=== PATIENT | male | born 1960 | race Caucasian/White ===

== ENCOUNTER → 2019-11-30 11:02 | Outpatient (BNVA) | payer MEDICARE, SELFPAY | PROVIDERS: Visit Provider Family Medicine Adult Medicine | DX: M96.1 Postlaminectomy syndrome, not elsewhere classified (principal); M24.9 Joint derangement, unspecified; M47.816 Spondylosis without myelopathy or radiculopathy, lumbar region; S22.32XD Fracture of one rib, left side, subsequent encounter for fracture with routine healing; Z79.891 Long term (current) use of opiate analgesic | CPT/HCPCS: 99214 ==

== ENCOUNTER → 2020-01-03 14:50 | Outpatient (BNVA) | payer MEDICARE, SELFPAY | PROVIDERS: PCP Internal Medicine; Referring Provider Internal Medicine; Visit Provider Family Medicine Adult Medicine | DX: M96.1 Postlaminectomy syndrome, not elsewhere classified (principal); M47.816 Spondylosis without myelopathy or radiculopathy, lumbar region; Z79.891 Long term (current) use of opiate analgesic | CPT/HCPCS: 99212; Q3014 ==

== ENCOUNTER 2020-01-11 12:43 | Inpatient (IN) | payer MEDICARE, SELFPAY ==
[2020-01-11] VITALS (7 sets, daily range): BP systolic 77–147; BP diastolic 50–100; PULSE 79–86; RESP 15–22; TEMP 36.1–36.9; O2SAT 96–100; BMI 27.3
--- NOTE | 2020-01-11 13:02 | XR_ITS ---
EXAMINATION: XR CHEST CLINICAL INFORMATION: CHF COMPARISON: Chest radiographs 03/06/2019, 02/19/2019 TECHNIQUE: Portable upright AP view of the chest was obtained. FINDINGS: There is enlarged cardiopericardial silhouette similar to prior exams. The vascularity is normal. There is no edema, airspace consolidation, or effusion. The hilar and mediastinal contours and bony structures are stable. XR/XR chest 1V IMPRESSION: Enlarged cardiopericardial silhouette similar to prior studies. No vascular congestion, infiltrate, or effusion.
--- NOTE | 2020-01-11 13:02 | ECG_ITS ---
Test Reason : SOB Blood Pressure : / mmHG Vent. Rate : 077 BPM Atrial Rate : 156 BPM P-R Int : 000 ms QRS Dur : 112 ms QT Int : 400 ms P-R-T Axes : 000 -29 126 degrees QTc Int : 452 ms Atrial fibrillation Left axis deviation Intra-ventricular conduction delay Anterolateral infarct , age undetermined Abnormal ECG When compared with ECG of 17-MAR-2019 12:16, Atrial fibrillation has replaced Sinus rhythm Nonspecific T wave abnormality no longer evident in Inferior leads QT has shortened Referred By: Jorgito Crooks Electronically Signed By:CAREN OWEN MD
--- NOTE | 2020-01-11 13:04 | ED.SOB ---
HPI - SOB/Dyspnea General Chief Complaint: Dyspnea Stated Complaint: Difficulty Breathing Time Seen by Provider: 01/11/20 13:02 Source: patient Mode of arrival: ambulatory Limitations: no limitations History of Present Illness HPI Narrative: patient has history of AFib CHF on Lasix 120 mg daily and Eliquis for last few weeks noticed increased shortness of breath special on exertion and lying flat also noticed increased leg swelling patient has not seen any MD for last 9 months. On arrival patient's blood pressure was 77/50 patient denied any dizziness or near syncope was feeling better repeat blood pressure was 130/87 after 500 cc of normal saline MD elicited complaint: shortness of breath Pertinent past history: congestive heart failure Onset (ago): week(s) Timing: constant Severity: moderate Exacerbating factors: lying flat and exertion Known history of: congestive heart failure Related Data Home Medications Medication Instructions Recorded Confirmed alprazolam 1 mg tablet 1 mg PO DAILY 11/30/19 01/11/20 carvedilol 3.125 mg tablet 3.125 mg PO BID 11/30/19 01/11/20 naloxone 4 mg/actuation nasal spray 1 spray INTRANASAL DAILY@0630 PRN 11/30/19 01/11/20 sacubitril 24 mg-valsartan 26 mg 1 tab PO BID 11/30/19 01/11/20 tablet apixaban 5 mg tablet 5 mg PO BID 01/02/20 01/11/20 Previous Rx's Medication Instructions Recorded gabapentin 800 mg tablet 1,600 mg PO BID #270 tab 12/19/19 buprenorphine HCl 450 mcg buccal 450 mcg BUCCAL Q12H 14 Days #28 ea 01/03/20 film methadone 5 mg tablet 5 mg PO Q8H 30 Days #90 tab 01/03/20 oxycodone 30 mg tablet 30 mg PO Q4H PRN 30 Days #150 tab 01/03/20 Allergies Allergy/AdvReac Type Severity Reaction Status Date / Time zolpidem [Ambien] Allergy Unknown sleep Verified 01/07/20 17:26 walking Review of Systems Review of Systems: REVIEW OF SYSTEMS: Pertinent positives and negatives are stated above in the history. GEN: no fevers, chills, fatigue HEENT: no nasal congestion, sore throat, ear pain NEURO: no headache, dizziness, focal weakness PULM: no cough, CV: no chest pain, palpitations, leg edema + ABD: no abdominal pain, nausea, vomiting, diarrhea : no dysuria, urgency, frequency SKIN: no rash ROS otherwise negative x 10 PMFSH Past Medical History Medical History CHF (congestive heart failure) Derangement of left shoulder joint Derangement of right shoulder joint Failed back syndrome, cervical Failed back syndrome, lumbar Left rib fracture Lumbar spondylosis Lumbar spondylosis Surgical History H/O elbow surgery H/O knee surgery History of arteriography History of shoulder surgery History of spinal surgery Family History Family History Father No problems noted. Mother No problems noted. Daughter Breast cancer Social History Social History Alcohol intake: never Smoking Status: Former smoker Tobacco Type: Cigarette Cigarettes Per Day: 10 Smoked in Last 30 Days: Yes Use of substances other than those prescribed or required for medical reasons: No Advance Directives: No Advance Directives Information Provided: No Physical Exam Vital Signs: Vital Signs: Last Vital Signs Temp 98.4 F 01/11/20 12:53 Pulse 83 01/11/20 14:15 Resp 22 H 01/11/20 13:14 BP 130/87 01/11/20 14:15 Pulse Ox 96 01/11/20 14:15 Body Mass Index 27.3 Const: General: cooperative Nutritional Appearance: average body habitus and well nourished Orientation/consciousness: oriented to person, oriented to place and oriented to time Limitations: no limitations HENMT: Head: Yes normal to inspection Ears: hearing grossly normal bilaterally Mouth: Normal oral and palatal mucosa present Eyes: General: appearance normal, both eyes and all related structures Resp: Effort & Inspection: normal respiratory effort Auscultation: crackles, rales, no rhonchi, no wheezes and diminished lung sounds Cardio: Rhythm: abnormal rhythm irregularly irregular Heart sounds: S1 normal heart sound present and S2 normal heart sound present Peripheral pulses: Peripheral pulses 2+ throughout GI: Inspection: Yes normal to inspection Palpation (GI): Soft to palpation, nontender and no guarding Neuro: General: oriented to person, oriented to place and oriented to time Motor exam (neuro): 5/5 motor strength present throughout Extrem: General: Yes full ROM and Yes pedal edema (3+ b/l) Course Course Course Narrative: patient with chronic CHF , bedside echo was done by myself showed about 20% of ejection fraction. Patient already taking 120 mg of Lasix by mouth will admit him and give IV Bumex admit for IV diuresis MDM - SOB/Dyspnea Differential Diagnosis Differential diagnosis: Likely acute exacerbation of chronic obstructive airways disease, congestive heart failure, pneumonia and pleural effusion Medical Records Attestation: I reviewed the patient's medical records. Lab Data Attestation: I reviewed the patient's lab results. Result diagrams: 01/11/20 13:11 01/11/20 13:11 Labs: Lab Results 01/11/20 01/11/20 01/11/20 Range/Units 13:11 13:11 13:11 WBC 9.5 (4.8-10.8) X10*3/uL RBC 5.09 (4.60-5.80) X10*6/uL Hgb 14.4 (14.0-18.0) g/dl Hct 45.3 (42-52) % MCV 89.0 (80-98) fL MCH 28.3 (27.0-33.0) pg MCHC 31.8 (31.0-36.0) g/dl RDW 14.9 (11.0-16.0) % Plt Count 210 (160-400) X10*3/uL MPV 10.9 (9.4-12.4) fL Immature Gran % (Auto) 0.3 (0.0-0.4) % Neut % (Auto) 66.7 (45-73) % Lymph % (Auto) 21.0 (20-40) % [place] % (Auto) 10.5 (2-11) % Eos % (Auto) 1.1 (0-4) % Baso % (Auto) 0.4 (0-2) % Lymph # (Auto) 2.0 (1.2-4.9) X10*3/uL [place] # (Auto) 1.0 (0.1-1.2) X10*3/uL Eos # (Auto) 0.1 (0.0-0.4) X10*3/uL Baso # (Auto) 0.0 (0.0-0.2) X10*3/uL Abs Immat Gran (auto) 0.03 (0.00-0.03) X10*3/uL Absolute Neuts (auto) 6.3 (2.0-8.3) X10*3/uL Absolute Nucleated RBC 0.000 (0.0-0.012) X10*3/uL Nucleated RBC % (auto) 0.0 (0.0-0.2) /100WBC PT (10.8-13.0) SEC INR (0.9-1.1) APTT (24.1-38.0) SEC Sodium 132 L (135-145) mmol/L Potassium 4.8 (3.3-5.1) mmol/l Chloride 96 (96-108) mmol/L Carbon Dioxide 27 (22-29) mmol/L Anion Gap 14 (12-20) BUN 45 H (9-16) mg/dL Creatinine 2.93 H (0.5-1.4) mg/dL Estim Creat Clear Calc 33.7 Estimated GFR 22 Random Glucose 96 (60-115) mg/dL Calcium 8.2 L (8.4-10.2) mg/dL Total Bilirubin (0.0-1.0) mg/dL Direct Bilirubin (0.0-0.5) mg/dL AST (5-37) U/L ALT (0-40) U/L Alkaline Phosphatase (39-117) U/L Troponin I High Sens 66.9 H (<3.5-35.0) ng/L B-Natriuretic Peptide 2694 H (<100) pg/mL Total Protein (6.5-8.0) g/dL Albumin (3.5-5.0) g/dL 01/11/20 01/11/20 Range/Units 13:11 13:11 WBC (4.8-10.8) X10*3/uL RBC (4.60-5.80) X10*6/uL Hgb (14.0-18.0) g/dl Hct (42-52) % MCV (80-98) fL MCH (27.0-33.0) pg MCHC (31.0-36.0) g/dl RDW (11.0-16.0) % Plt Count (160-400) X10*3/uL MPV (9.4-12.4) fL Immature Gran % (Auto) (0.0-0.4) % Neut % (Auto) (45-73) % Lymph % (Auto) (20-40) % [place] % (Auto) (2-11) % Eos % (Auto) (0-4) % Baso % (Auto) (0-2) % Lymph # (Auto) (1.2-4.9) X10*3/uL [place] # (Auto) (0.1-1.2) X10*3/uL Eos # (Auto) (0.0-0.4) X10*3/uL Baso # (Auto) (0.0-0.2) X10*3/uL Abs Immat Gran (auto) (0.00-0.03) X10*3/uL Absolute Neuts (auto) (2.0-8.3) X10*3/uL Absolute Nucleated RBC (0.0-0.012) X10*3/uL Nucleated RBC % (auto) (0.0-0.2) /100WBC PT 23.8 H (10.8-13.0) SEC INR 2.0 H (0.9-1.1) APTT 39.7 H (24.1-38.0) SEC Sodium (135-145) mmol/L Potassium (3.3-5.1) mmol/l Chloride (96-108) mmol/L Carbon Dioxide (22-29) mmol/L Anion Gap (12-20) BUN (9-16) mg/dL Creatinine (0.5-1.4) mg/dL Estim Creat Clear Calc Estimated GFR Random Glucose (60-115) mg/dL Calcium (8.4-10.2) mg/dL Total Bilirubin 1.1 H (0.0-1.0) mg/dL Direct Bilirubin 0.6 H (0.0-0.5) mg/dL AST 20 (5-37) U/L ALT 29 (0-40) U/L Alkaline Phosphatase 86 (39-117) U/L Troponin I High Sens (<3.5-35.0) ng/L B-Natriuretic Peptide (<100) pg/mL Total Protein 6.0 L (6.5-8.0) g/dL Albumin 3.5 (3.5-5.0) g/dL ECG Data Attestation: I personally reviewed and interpreted this ECG as follows: ECG interpretation date: 01/11/20 Prior ECG tracings: available for review Interpretation: atrial fibrillation with ventricular rate of 77, poor progression of R-waves in anterior leads nonspecific ST T wave changes. Impression atrial fibrillation no acute ischemia Discharge Plan Discharge Clinical Impression: CHF exacerbation Qualifiers: Heart failure type: systolic Qualified Code(s): I50.23 - Acute on chronic systolic (congestive) heart failure Patient Disposition: Admitted As Inpatient
[2020-01-11] MEDS: 0.9 % Sodium Chloride 500 ML IV (13:08)
[2020-01-11 13:17] LABS: MANUAL DIFF FLAG NO
[2020-01-11 13:26] LABS: Basophils Percent Auto 0.4 % (0-2); Eosinophils Absolute Auto 0.1 X10*3/uL (0.0-0.4); Eosinophils Percent Auto 1.1 % (0-4); Hematocrit 45.3 % (42-52); Hemoglobin 14.4 g/dl (14.0-18.0); Imm Gran Abs Auto 0.03 X10*3/uL (0.00-0.03); Imm Gran Pct Auto 0.3 % (0.0-0.4); Mean Corpuscular HGB Conc 31.8 g/dl (31.0-36.0); Mean Corpuscular Hemoglobin 28.3 pg (27.0-33.0); Mean Platelet Volume 10.9 fL (9.4-12.4); Monocytes Percent Auto 10.5 % (2-11); Neutrophils Absolute Auto 6.3 X10*3/uL (2.0-8.3); Neutrophils Percent Auto 66.7 % (45-73); Platelet Count 210 X10*3/uL (160-400); Red Blood Count 5.09 X10*6/uL (4.60-5.80); Red Cell Distribution Width 14.9 % (11.0-16.0); White Blood Count 9.5 X10*3/uL (4.8-10.8)
[2020-01-11 13:28] LABS: Prothrombin Time 23.8 SEC (10.8-13.0)
[2020-01-11 13:31] LABS: Partial Thromboplastin Time 39.7 SEC (24.1-38.0)
[2020-01-11 13:47] LABS: Anion Gap 14 (12-20); Blood Urea Nitrogen 45 mg/dL (9-16); Calcium 8.2 mg/dL (8.4-10.2); Carbon Dioxide 27 mmol/L (22-29); Chloride 96 mmol/L (96-108); Creatinine Clr Calc Pharmacy 33.7; Estimated Glomerular Filt Rate 22; Glucose Random 96 mg/dL (60-115); Potassium 4.8 mmol/l (3.3-5.1); Sodium 132 mmol/L (135-145)
[2020-01-11 13:51] LABS: Alanine Aminotransferase 29 U/L (0-40); Albumin Level 3.5 g/dL (3.5-5.0); Alkaline Phosphatase 86 U/L (39-117); Aspartate Amino Transferase 20 U/L (5-37); Bilirubin Direct 0.6 mg/dL (0.0-0.5); Bilirubin Total 1.1 mg/dL (0.0-1.0)
[2020-01-11 14:00] LABS: B Type Natriuretic Peptide 2694 pg/mL (<100); Troponin-I High Sensitivity 66.9 ng/L (<3.5-35.0)
[2020-01-11] MEDS: Bumetanide 1 MG/4 ML VIAL IVPUSH (16:00)
--- NOTE | 2020-01-11 16:03 | PC.NURSE ---
hospitalist at bedside eval.
[2020-01-11 16:30] LABS: COVID-19 Test Negative (Negative); IDNOW Serial# 9DD0AD1C
--- NOTE | 2020-01-11 17:00 | P.HPHOSP_ITS ---
History of Present Illness Date of Service: 01/11/20 Chief Complaint: progressive JUSTICE This is a 59-year-old poorly compliant gentleman with a known history of cardiomyopathy (? tachycardia induced), with a last known ejection fraction of about 15% on his last transesophageal echo (02/2019) who presents to the hospital with complaints of progressive dyspnea on exertion for the last 2 weeks. Patient reports that he last saw change management specialist in April 2019 and he does admit to not taking his Lasix unless he was starts swelling up. he does endorse that he does take his other chronic cardiac meds which include Coreg and Eliquis. He reports that over the last several weeks he has noted exertional dyspnea and at this point gets short of breath just walking 10-15 feet. He also endorses some orthopnea. He endorses significant lower extremity swelling. He reports that his dry weight is around 235 lb. He reports that he took 120 mg of Lasix yesterday but did not make much urine or feel better and so he came to the emergency room. In the emergency room, the patient was noted to be hypotensive in the 70s to 80s range and was given 500 cc of fluid with improvement in his blood pressure only to come down to the 90s. However he is clearly fluid overloaded and subsequently intensive care consult was sought. Reportedly at bedside echo was performed by community service coordinator which showed heart failure with the EF at best 20%. It was felt that his treatment could be safely conducted on telemetry and as such she was admitted there. Review of Systems Review of Systems: General - no fevers or chills HEENT - no SUN, no vision changes Cardiovascular - no chest pain, no papitations, +orthopnea, +LE edema, +sob Respiratory - +SOB Abdominal- no abdominal pain, nausea, vomiting, diarrhea Ext - 3+ bilateral pitting edema Neuro - no numbness, no weakness Skin - no rashes [facility] Medical History (Updated 01/11/20 @ 18:29 by Pipe Alba MD) Atrial fibrillation and flutter CHF (congestive heart failure) Derangement of left shoulder joint Derangement of right shoulder joint Failed back syndrome, cervical Failed back syndrome, lumbar Left rib fracture Lumbar spondylosis Lumbar spondylosis Family History Father No problems noted. Mother No problems noted. Daughter Breast cancer Surgical History H/O elbow surgery H/O knee surgery History of arteriography History of shoulder surgery History of spinal surgery Social History Alcohol intake: never Smoking Status: Former smoker Tobacco Type: Cigarette Cigarettes Per Day: 10 Smoked in Last 30 Days: Yes Use of substances other than those prescribed or required for medical reasons: No Advance Directives: No Advance Directives Information Provided: No Meds Allergies Allergy/AdvReac Type Severity Reaction Status Date / Time zolpidem [Ambien] Allergy Unknown sleep Verified 01/07/20 17:26 walking Home Medications Medication Instructions Recorded Confirmed Type alprazolam 1 mg tablet 1 mg PO DAILY 11/30/19 01/11/20 History carvedilol 3.125 mg tablet 3.125 mg PO BID 11/30/19 01/11/20 History naloxone 4 mg/actuation nasal spray 1 spray INTRANASAL DAILY@0630 PRN 11/30/19 01/11/20 History sacubitril 24 mg-valsartan 26 mg 1 tab PO BID 11/30/19 01/11/20 History tablet apixaban 5 mg tablet 5 mg PO BID 01/02/20 01/11/20 History Physical Exam Vital Signs and Narrative: Vital Signs: Last Vital Signs Temp 98.1 F 01/11/20 16:31 Pulse 86 01/11/20 16:31 Resp 15 01/11/20 16:31 BP 81/58 L 01/11/20 16:31 Pulse Ox 98 01/11/20 16:31 Body Mass Index 27.3 General - no acute distress, appears comfortable HEENT - EOMI, PERRL Cardiovascular - IRR Lungs - diminished, no distress, Abdomen - soft, nontender, no rebound or guarding Extremities - 3+ bilateral edema Neuro - awake and alert, no focal deficits Skin - warm/dry Results Labs CBC and Chem 7: 01/11/20 13:11 01/11/20 13:11 Labs: Laboratory Results - last 24 hr 01/11/20 01/11/20 01/11/20 13:11 13:11 13:11 MCV 89.0 MCH 28.3 MCHC 31.8 RDW 14.9 Plt Count 210 MPV 10.9 Immature Gran % (Auto) 0.3 Neut % (Auto) 66.7 Lymph % (Auto) 21.0 [place] % (Auto) 10.5 Eos % (Auto) 1.1 Baso % (Auto) 0.4 Lymph # (Auto) 2.0 [place] # (Auto) 1.0 Eos # (Auto) 0.1 Baso # (Auto) 0.0 Abs Immat Gran (auto) 0.03 Absolute Neuts (auto) 6.3 Absolute Nucleated RBC 0.000 Nucleated RBC % (auto) 0.0 PT INR APTT Anion Gap 14 Estim Creat Clear Calc 33.7 Estimated GFR 22 Random Glucose 96 Calcium 8.2 L Total Bilirubin Direct Bilirubin AST ALT Alkaline Phosphatase Troponin I High Sens 66.9 H B-Natriuretic Peptide 2694 H Total Protein Albumin COVID-19 (VISHNU) COVID-19 Clin Com 01/11/20 01/11/20 01/11/20 13:11 13:11 16:09 MCV MCH MCHC RDW Plt Count MPV Immature Gran % (Auto) Neut % (Auto) Lymph % (Auto) [place] % (Auto) Eos % (Auto) Baso % (Auto) Lymph # (Auto) [place] # (Auto) Eos # (Auto) Baso # (Auto) Abs Immat Gran (auto) Absolute Neuts (auto) Absolute Nucleated RBC Nucleated RBC % (auto) PT 23.8 H INR 2.0 H APTT 39.7 H Anion Gap Estim Creat Clear Calc Estimated GFR Random Glucose Calcium Total Bilirubin 1.1 H Direct Bilirubin 0.6 H AST 20 ALT 29 Alkaline Phosphatase 86 Troponin I High Sens B-Natriuretic Peptide Total Protein 6.0 L Albumin 3.5 COVID-19 (VISHNU) Negative COVID-19 Clin Com See Note Imaging Radiologist's Impressions: Impressions Chest X-Ray 01/11/20 13:02 IMPRESSION: Enlarged cardiopericardial silhouette similar to prior studies. No vascular congestion, infiltrate, or effusion. Assessment and Plan (1) Atrial fibrillation and flutter: Status: Acute This is a 59 yo M with PMH of CHF (? tachycardia related), A. Fib (s/p cardioversion and on amio in the past), chronic pain on multiple opiates, non- compliance with treatment, who presents to the hospital with progressive JUSTICE and is admitted for CHF exacerbation. 1. Acute on chronic HFrEF exacerbation pt non-compliant with diuretics lasix gtt -- will start @ 5 cc/hr i/o cardiology consult 2. A. Fib Rate controlled hold coreg due to low bp change eliquis to 2.5mg bid 3. MARY likely cardiorenal diuresis and reassess monitor lytes 4. Hypotension likely 2/2 to his CMP no symptoms seen by ICU in the ED -- deemded safe for the floor the time being iv albumin 5. Chronic opiate dependence continue his baseline meds (verified by the pharmacy) Full Code DVT pptx, Eliquis (renally dosed)
[2020-01-11] MEDS: Albumin Human 25 % 100 ML IV ×2 (17:47→23:03)
--- NOTE | 2020-01-11 17:50 | PC.NURSE ---
pt medicated per emar, awaiting inpt admission. awaiting lasix drip being mixed by pharmacy
--- NOTE | 2020-01-11 17:57 | PC.NURSE ---
called for report to [facility], awaiting call back from nurse.
--- NOTE | 2020-01-11 18:10 | PC.NURSE ---
report given to [facility] hazel robles
[2020-01-11] MEDS: Furosemide 500 MG in Container,Empty 0 ML IVCONT (18:41)
[2020-01-11] MEDS: Apixaban 2.5 MG TABLET PO (20:15)
[2020-01-11] MEDS: methADONE HCl 5 MG TABLET PO (20:34)
[2020-01-11] MEDS: oxyCODONE HCl Immed Release 15 MG TABLET PO (20:34)
[2020-01-11] MEDS: 0.9 % Sodium Chloride Flush 3 ML SYRINGE IVFLUSH (23:03)
[2020-01-12] VITALS (7 sets, daily range): BP systolic 79–129; BP diastolic 56–88; PULSE 67–84; RESP 16–20; TEMP 35.9–36.8; O2SAT 96–100
[2020-01-12] MEDS: oxyCODONE HCl Immed Release 15 MG TABLET PO ×3 (02:55→19:39)
[2020-01-12] MEDS: methADONE HCl 5 MG TABLET PO ×3 (02:56→19:36)
[2020-01-12] MEDS: Albumin Human 25 % 100 ML IV ×2 (05:16→11:23)
[2020-01-12 07:33] LABS: MANUAL DIFF FLAG NO
[2020-01-12 07:39] LABS: Basophils Percent Auto 0.4 % (0-2); Eosinophils Absolute Auto 0.1 X10*3/uL (0.0-0.4); Eosinophils Percent Auto 0.5 % (0-4); Hematocrit 41.6 % (42-52); Hemoglobin 13.7 g/dl (14.0-18.0); Imm Gran Abs Auto 0.02 X10*3/uL (0.00-0.03); Imm Gran Pct Auto 0.2 % (0.0-0.4); Lymphocytes Absolute Auto 2.3 X10*3/uL (1.2-4.9); Lymphocytes Percent Auto 24.4 % (20-40); Mean Corpuscular HGB Conc 32.9 g/dl (31.0-36.0); Mean Corpuscular Hemoglobin 28.5 pg (27.0-33.0); Mean Corpuscular Volume 86.5 fL (80-98); Mean Platelet Volume 11.6 fL (9.4-12.4); Monocytes Absolute Auto 0.9 X10*3/uL (0.1-1.2); Monocytes Percent Auto 10.2 % (2-11); Neutrophils Absolute Auto 5.9 X10*3/uL (2.0-8.3); Neutrophils Percent Auto 64.3 % (45-73); Platelet Count 187 X10*3/uL (160-400); Red Blood Count 4.81 X10*6/uL (4.60-5.80); Red Cell Distribution Width 14.9 % (11.0-16.0); White Blood Count 9.2 X10*3/uL (4.8-10.8)
[2020-01-12 08:04] LABS: Anion Gap 15 (12-20); Blood Urea Nitrogen 50 mg/dL (9-16); Calcium 8.1 mg/dL (8.4-10.2); Carbon Dioxide 24 mmol/L (22-29); Chloride 98 mmol/L (96-108); Creatinine Clr Calc Pharmacy 52.3; Estimated Glomerular Filt Rate 37; Glucose Random 77 mg/dL (60-115); Potassium 4.3 mmol/l (3.3-5.1); Sodium 133 mmol/L (135-145)
--- NOTE | 2020-01-12 08:17 | PC.NURSE ---
BP 80/61 MANUALLY. ASYMPTOMATIC LYING IN BED WITH EYES CLOSED. DR AGUIRRE AWARE AND WILL EVALUATE
[2020-01-12] MEDS: Apixaban 2.5 MG TABLET PO ×2 (09:25→21:18)
[2020-01-12] MEDS: 0.9 % Sodium Chloride Flush 3 ML SYRINGE IVFLUSH ×2 (09:33→17:09)
--- NOTE | 2020-01-12 12:01 | PM.CNCAR ---
History of Present Illness History of Present Illness Date of Consult: January 12, 2020 Chief complaint: CHF Narrative: This is a cardiology consultation regarding congestive heart failure. We have seen him in the hospital in the past but there is no office follow-up. He has cardiomyopathy and also atrial fibrillation. He states that he does take carvedilol and Entresto but the diuretics only taken as needed. He states that he was doing well during summer months but in the last few weeks he has been getting short of breath and has also been gaining fluid and hence that led to the hospitalization. It appears that he did undergo cardioversion the beginning of the year and was on amiodarone at that time but at some point, he seems to have converted to atrial fibrillation and now he is off the amiodarone. He is essentially on rate control therapy. is also on anticoagulation with Eliquis. He states he is compliant with that. Review of Systems Review of Systems: Cardiac-positive for shortness of breath. Positive for leg swelling. Negative for angina. Negative for dizzy spells or syncopal episodes. Yes all other systems are reviewed and are negative [facility] Past Medical History Medical History (Updated 01/12/20 @ 12:08 by Jay Jay Green MD) Atrial fibrillation and flutter CHF (congestive heart failure) Derangement of left shoulder joint Derangement of right shoulder joint Failed back syndrome, cervical Failed back syndrome, lumbar History of cardioversion Left rib fracture Lumbar spondylosis Lumbar spondylosis Persistent atrial fibrillation Family History Family History Father No problems noted. Mother No problems noted. Daughter Breast cancer Surgical History Surgical History H/O elbow surgery H/O knee surgery History of arteriography History of shoulder surgery History of spinal surgery Social History Social History Household Members: Significant Other Housing: Apartment Do you presently have visiting nurse or other home services: No Alcohol intake: never Smoking Status: Former smoker Tobacco Type: Cigarette Cigarettes Per Day: 10 Smoked in Last 30 Days: Yes Patient Interested in Nicotine Replacement: No Patient Given Instructions on How to Stop Smoking: Yes Date Education Initiated: 01/11/20 Second Hand Smoke Exposure: No Use of substances other than those prescribed or required for medical reasons: No Currently Displaying Signs/Symptoms of Drug Intoxication Withdrawal: No Any prior treatment program specific to substance use: No Have you been hit, kicked, punched, or otherwise hurt by someone within the past year? If so, by whom?: No Do you feel safe in your current relationship?: Yes Is there a partner from a previous relationship who is making you feel unsafe now?: No Are you made to feel afraid or neglected: No Advance Directives: No Advance Directives Information Provided: No Do you have thoughts of harming others: None Do you have a plan to hurt others: No Plan Recently lost weight without trying: No Meds Allergies Allergy/AdvReac Type Severity Reaction Status Date / Time zolpidem [Ambien] Allergy Unknown sleep Verified 01/07/20 17:26 walking Home Medications Medication Instructions Recorded Confirmed Type alprazolam 1 mg tablet 1 mg PO DAILY 11/30/19 01/11/20 History carvedilol 3.125 mg tablet 3.125 mg PO BID 11/30/19 01/11/20 History naloxone 4 mg/actuation nasal spray 1 spray INTRANASAL DAILY@0630 PRN 11/30/19 01/11/20 History sacubitril 24 mg-valsartan 26 mg 1 tab PO BID 11/30/19 01/11/20 History tablet apixaban 5 mg tablet 5 mg PO BID 01/02/20 01/11/20 History Physical Exam Vital Signs: Vital Signs: Last Vital Signs Temp 96.7 F L 01/12/20 07:55 Pulse 67 01/12/20 07:55 Resp 18 01/12/20 07:55 BP 80/61 L 01/12/20 07:55 Pulse Ox 97 01/12/20 07:55 Body Mass Index 27.3 Comfortable, no distress No pallor, icterus or cyanosis HEENT -unremarkable JVD- normal Cardiac- normal heart sounds, no murmurs, gallops or rubs, normal PMI Respiratory-normal breath sounds bilaterally, no crackles, no wheeze Abdomen- soft, nontender Neuro- alert and oriented Lower extremities- 1-2+ edema Results Labs and Meds Result diagrams: 01/12/20 05:52 01/12/20 05:52 Lab results: Laboratory Results - last 24 hr 1101/11/20 01/11/20 13:11 13:11 13:11 WBC 9.5 RBC 5.09 Hgb 14.4 Hct 45.3 MCV 89.0 MCH 28.3 MCHC 31.8 RDW 14.9 Plt Count 210 MPV 10.9 Immature Gran % (Auto) 0.3 Neut % (Auto) 66.7 Lymph % (Auto) 21.0 [place] % (Auto) 10.5 Eos % (Auto) 1.1 Baso % (Auto) 0.4 Lymph # (Auto) 2.0 [place] # (Auto) 1.0 Eos # (Auto) 0.1 Baso # (Auto) 0.0 Abs Immat Gran (auto) 0.03 Absolute Neuts (auto) 6.3 Absolute Nucleated RBC 0.000 Nucleated RBC % (auto) 0.0 PT INR APTT Sodium 132 L Potassium 4.8 Chloride 96 Carbon Dioxide 27 Anion Gap 14 BUN 45 H Creatinine 2.93 H Estim Creat Clear Calc 33.7 Estimated GFR 22 Random Glucose 96 Calcium 8.2 L Total Bilirubin Direct Bilirubin AST ALT Alkaline Phosphatase Troponin I High Sens 66.9 H B-Natriuretic Peptide 2694 H Total Protein Albumin COVID-19 ([facility]ISHNU) COVID-[employer] 01/11/20 01/11/20 01/11/20 13:11 13:11 16:09 WBC RBC Hgb Hct MCV MCH MCHC RDW Plt Count MPV Immature Gran % (Auto) Neut % (Auto) Lymph % (Auto) [place] % (Auto) Eos % (Auto) Baso % (Auto) Lymph # (Auto) [place] # (Auto) Eos # (Auto) Baso # (Auto) Abs Immat Gran (auto) Absolute Neuts (auto) Absolute Nucleated RBC Nucleated RBC % (auto) PT 23.8 H INR 2.0 H APTT 39.7 H Sodium Potassium Chloride Carbon Dioxide Anion Gap BUN Creatinine Estim Creat Clear Calc Estimated GFR Random Glucose Calcium Total Bilirubin 1.1 H Direct Bilirubin 0.6 H AST 20 ALT 29 Alkaline Phosphatase 86 Troponin I High Sens B-Natriuretic Peptide Total Protein 6.0 L Albumin 3.5 COVID-19 (VISHNU) Negative COVID-19 [employer] Com See Note 01/12/20 01/12/20 05:52 05:52 WBC 9.2 RBC 4.81 Hgb 13.7 L Hct 41.6 L MCV 86.5 MCH 28.5 MCHC 32.9 RDW 14.9 Plt Count 187 MPV 11.6 Immature Gran % (Auto) 0.2 Neut % (Auto) 64.3 Lymph % (Auto) 24.4 [place] % (Auto) 10.2 Eos % (Auto) 0.5 Baso % (Auto) 0.4 Lymph # (Auto) 2.3 [place] # (Auto) 0.9 Eos # (Auto) 0.1 Baso # (Auto) 0.0 Abs Immat Gran (auto) 0.02 Absolute Neuts (auto) 5.9 Absolute Nucleated RBC 0.000 Nucleated RBC % (auto) 0.0 PT INR APTT Sodium 133 L Potassium 4.3 Chloride 98 Carbon Dioxide 24 Anion Gap 15 BUN 50 H Creatinine 1.89 H Estim Creat Clear Calc 52.3 Estimated GFR 37 Random Glucose 77 Calcium 8.1 L Total Bilirubin Direct Bilirubin AST ALT Alkaline Phosphatase Troponin I High Sens B-Natriuretic Peptide Total Protein Albumin COVID-19 ([facility]ISHNU) COVID-19 Clin Com EKG Interpretation EKG Comments: EKG with atrial fibrillation at 77/Min; cannot exclude old inferior infarct or anterolateral infarct. In the prior EKG from February of this year, he was in sinus rhythm. Assessment and Plan (1) Acute on chronic systolic (congestive) heart failure: Status: Acute (2) Persistent atrial fibrillation: Status: Acute Continue IV diuretics as currently on. Continue his chronic heart failure medications as well as anticoagulation. His blood pressure is on the lower side but he is not having any active symptoms and seems well perfused. We will get an echocardiogram on Tuesday. It does not appear that he ever had ischemia workup in past and that will need to be addressed as outpt. Procedures Abscess I/D Date of Service: 01/12/20
--- NOTE | 2020-01-12 13:10 | MHC.CM.PN ---
PT REPORTS HE LIVES ALONE AND IS INDEPENDENT WITH ALL CARE AND MOBILITY. PT REPORTS HE DOES NOT HAVE ANY SERVICES. HE STATES HE HAS BEEN TRYING TO GET [facility] BUT DID NOT HAVE A PCP FOR SOME TIME. PT DENIES THE USE OF DME. PT IS NOW ACTIVE WITH [facility] AND HAS A HCP ON FILE. CURRENT DC PLAN IS HOME WITH NO SERVICES. PT TO SELF ARRANGE TRANSPORT
--- NOTE | 2020-01-12 13:59 | P.PNIM_ITS ---
Subjective Subjective Date of Service: 01/12/20 Interval History: seen and examined this AM asking when he will be discharged -- told him that will be here few more days minimum tells me he cant stay here that long, he has things to do. informed him of the risk of leaving AMA, which include worsening CHF, possible [place] and . he understands and agrees to stay at this time, but does tell me that is going to leave when he feels ready medically -- he reports JUSTICE is resolved. thinks ROS General - no fevers or chills Cardiovascular - denies JUSTICE today, +edema Respiratory - no shortness of breath or cough Abdominal- no abdominal pain, nausea, vomiting, diarrhea Physical Exam Vital Signs: Vital Signs: Last Vital Signs Temp 98.2 F 01/12/20 12:00 Pulse 72 01/12/20 12:00 Resp 18 01/12/20 12:00 BP 82/74 L 01/12/20 12:00 Pulse Ox 96 01/12/20 12:00 Body Mass Index 27.3 General - no acute distress, appears comfortable HEENT - EOMI, PERRL Cardiovascular - IRR Lungs - diminished, no distress, Abdomen - soft, nontender, no rebound or guarding Extremities - still significant edema, 2-3+ Neuro - awake and alert, no focal deficits Skin - warm/dry Objective Data Current Medications Generic Name Dose Route Start Last Admin Trade Name Dipakq PRN Reason Stop Dose Admin Acetaminophen 650 mg 01/11/20 18:13 Acetaminophen 325 Mg Tablet PO Q6H PRN Pain, Mild (Pain Scale 1-3) Alprazolam 1 mg 01/12/20 20:00 Alprazolam 0.5 Mg Tablet PO DAILY WESTLEY Apixaban 2.5 mg 01/11/20 21:00 01/12/20 09:25 Apixaban 2.5 Mg Tablet PO 2.5 mg BID WESTLEY Administration Docusate Sodium 100 mg 01/11/20 18:13 Docusate Sodium 100 Mg Capsule PO DAILY PRN Constipation Furosemide 500 mg/ IV 50 mls @ 0.5 mls/hr 01/11/20 17:00 01/11/20 18:41 Miscellaneous Supplies IVCONT 5 mg/hr .Q24H WESTLEY 0.5 mls/hr Administration 5 MG/HR Methadone HCl 5 mg 01/11/20 19:00 01/12/20 11:22 Methadone Hcl 5 Mg Tablet PO 5 mg Q8H WESTLEY Administration Oxycodone HCl 15 mg 01/11/20 18:56 01/12/20 09:32 Oxycodone Hcl Immed Release 15 Mg Tablet PO 15 mg Q6H PRN Administration pain Pharmacy Consult 1 each 01/11/20 14:12 Consult Rx Perform Med Rec MISCELLANE ONCE PRN Consult order Sodium Chloride 3 ml 01/12/20 00:00 01/12/20 09:33 0.9 % Sodium Chloride Flush 3 Ml Syringe IVFLUSH 3 ml QSHIFT WESTLEY Administration Labs CBC & Chem 7: 01/12/20 05:52 01/12/20 05:52 Assessment and Plan (1) Atrial fibrillation and flutter: Status: Acute Assessment and Plan: This is a 59 yo M with PMH of CHF (? tachycardia related), A. Fib (s/p cardioversion and on amio in the past), chronic pain on multiple opiates, non- compliance with treatment, who presents to the hospital with progressive JUSTICE and is admitted for CHF exacerbation. 1. Acute on chronic HFrEF exacerbation diuresed 1.5L over night, but patient non compliant with fluid restriction at this time continue lasix gtt remains with low bp, but without signs or symptoms continue holding coreg/entresto due to bp echo Tuesday 2. A. Fib Rate controlled hold coreg due to low bp continue eliquis 3. MARY improving with diuresis monitor renally dose eliquis 4. Hypotension stable, no symptoms 5. Chronic opiate dependence continue his baseline meds (verified by the pharmacy); bebe NF -- pt reports he was started on this recently and hasnt take it much because it doesnt work. patient has been educated upon admission and then again during AM rounds about his condition and its treatment. Has been educated on the risks of leaving AMA as he has already indicated that he will most likely be doing that. Will talk to him again if he decides to leave AMA. Full Code DVT pptx, Eliquis (renally dosed)
[2020-01-12] MEDS: Oxymetazoline HCl 0.05 % Nasal 15 ML SPRAY 2 SPRAY NOSTRIL-B (15:15)
[2020-01-12] MEDS: Furosemide 500 MG in Container,Empty 0 ML IVCONT (17:15)
[2020-01-12] MEDS: ALPRAZolam 0.5 MG TABLET 1 MG PO (19:36)
[2020-01-13] VITALS (8 sets, daily range): BP systolic 95–158; BP diastolic 66–95; PULSE 74–124; RESP 18–20; TEMP 36.2–36.9; O2SAT 95–100
[2020-01-13] MEDS: 0.9 % Sodium Chloride Flush 3 ML SYRINGE IVFLUSH ×3 (00:17→17:22)
[2020-01-13] MEDS: methADONE HCl 5 MG TABLET PO ×3 (03:42→21:45)
[2020-01-13 07:15] LABS: Anion Gap 19 (12-20); Blood Urea Nitrogen 42 mg/dL (9-16); Carbon Dioxide 25 mmol/L (22-29); Chloride 100 mmol/L (96-108); Creatinine Clr Calc Pharmacy 79.7; Estimated Glomerular Filt Rate 60; Glucose Random 93 mg/dL (60-115); Magnesium 1.5 mg/dL (1.6-2.6); Potassium 3.7 mmol/l (3.3-5.1); Sodium 140 mmol/L (135-145)
[2020-01-13 07:31] LABS: Calcium 8.7 mg/dL (8.4-10.2)
[2020-01-13] MEDS: Potassium Chloride ER 20 MEQ TAB.ER.PRT 60 MEQ PO (09:29)
[2020-01-13] MEDS: Magnesium Sulfate/H2O 2 GM/50 ML PIGGYBACK IV (09:29)
[2020-01-13] MEDS: Apixaban 2.5 MG TABLET 5 MG PO ×2 (09:34→21:45)
[2020-01-13] MEDS: Furosemide 500 MG in Container,Empty 0 ML IVCONT (10:09)
--- NOTE | 2020-01-13 11:44 | P.PNIM_ITS ---
Subjective Subjective Date of Service: 01/13/20 Interval History: seen and examined no complaints breathing easier no symptoms during NSVT runs willing to stay for now ROS General - no fevers or chills Cardiovascular - denies JUSTICE today, +edema Respiratory - no shortness of breath or cough Abdominal- no abdominal pain, nausea, vomiting, diarrhea Physical Exam Vital Signs: Vital Signs: Last Vital Signs Temp 98.2 F 01/13/20 07:46 Pulse 82 01/13/20 07:46 Resp 18 01/13/20 07:46 BP 127/77 01/13/20 07:46 Pulse Ox 98 01/13/20 07:46 Body Mass Index 27.3 General - no acute distress, appears comfortable HEENT - EOMI, PERRL Cardiovascular - IRR Lungs - diminished, no distress, Abdomen - soft, nontender, no rebound or guarding Extremities - still significant edema bilaterally Neuro - awake and alert, no focal deficits Skin - warm/dry Objective Data Current Medications Generic Name Dose Route Start Last Admin Trade Name Freq PRN Reason Stop Dose Admin Acetaminophen 650 mg 01/11/20 18:13 Acetaminophen 325 Mg Tablet PO Q6H PRN Pain, Mild (Pain Scale 1-3) Alprazolam 1 mg 01/12/20 20:00 01/13/20 09:43 Alprazolam 0.5 Mg Tablet PO Not Given DAILY WESTLEY Apixaban 5 mg 01/13/20 09:00 01/13/20 09:34 Apixaban 2.5 Mg Tablet PO 5 mg BID WESTLEY Administration Docusate Sodium 100 mg 01/11/20 18:13 Docusate Sodium 100 Mg Capsule PO DAILY PRN Constipation Furosemide 500 mg/ IV 50 mls @ 1 mls/hr 01/11/20 17:00 01/13/20 10:09 Miscellaneous Supplies IVCONT 10 mg/hr .Q24H WESTLEY 1 mls/hr Administration Methadone HCl 5 mg 01/11/20 19:00 01/13/20 03:42 Methadone Hcl 5 Mg Tablet PO 5 mg Q8H WESTLEY Administration Oxycodone HCl 30 mg 01/13/20 07:54 Oxycodone Hcl Immed Release 15 Mg Tablet PO Q6H PRN pain Pharmacy Consult 1 each 01/11/20 14:12 Consult Rx Perform Med Rec MISCELLANE ONCE PRN Consult order Potassium Chloride 20 meq 01/13/20 21:00 Potassium Chloride Er 20 Meq Tab.Er.Prt PO BID WESTLEY Sodium Chloride 3 ml 01/12/20 00:00 01/13/20 09:35 0.9 % Sodium Chloride Flush 3 Ml Syringe IVFLUSH 3 ml QSHIFT WESTLEY Administration Labs CBC & Chem 7: 01/12/20 05:52 01/13/20 06:08 Assessment and Plan (1) Atrial fibrillation and flutter: Status: Acute Assessment and Plan: This is a 59 yo M with PMH of CHF (? tachycardia related), A. Fib (s/p cardioversion and on amio in the past), chronic pain on multiple opiates, non- compliance with treatment, who presents to the hospital with progressive JUSTICE and is admitted for CHF exacerbation. 1. Acute on chronic HFrEF exacerbation slowly improving but only neg 1L balance since admission. will increase lasix gtt to 10mg/hr BP improving with diuresis -- will start back his coreg (having NSVT runs). hold entresto today and if bp allows readd by tomorrow cardiology on board echo tomorrow 2. A. Fib rate controlled, restart coreg eliquis, change to full dose 3. MARY SCr in the normal range with diuresis 4. Hypotension resolved 5. Chronic opiate dependence continue home meds balbuca is NF 6. NSVT runs resume coreg; IV mag and po K 60 meq this AM; give 40mg bid keep K>4 and Mg > 2 Full Code DVT pptx, Eliquis
[2020-01-13] MEDS: carvediloL 3.125 MG TABLET PO ×2 (12:19→21:47)
--- NOTE | 2020-01-13 12:42 | PM.PNCARD ---
Subjective Subjective Interval history: He states that he feels okay. Shortness of breath is better. Still has leg swelling. Diuresing. Review of Systems Review of Systems Cardiac-positive for shortness of breath. Positive for leg swelling. Negative for angina. Negative for dizzy spells or syncopal episodes. Yes all other systems are reviewed and are negative Physical Exam Vital Signs: Last Vital Signs Temp 96.7 F L 01/12/20 07:55 Pulse 67 01/12/20 07:55 Resp 18 01/12/20 07:55 BP 80/61 L 01/12/20 07:55 Pulse Ox 97 01/12/20 07:55 Body Mass Index 27.3 Comfortable, no distress No pallor, icterus or cyanosis HEENT -unremarkable JVD- normal Cardiac- normal heart sounds, no murmurs, gallops or rubs, normal PMI Respiratory-normal breath sounds bilaterally, no crackles, no wheeze Abdomen- soft, nontender Neuro- alert and oriented Lower extremities- 1-2+ edema Results Labs and Meds Result diagrams: 01/12/20 05:52 01/13/20 06:08 Lab results: Laboratory Results - last 24 hr 01/13/20 06:08 Sodium 140 Potassium 3.7 Chloride 100 Carbon Dioxide 25 Anion Gap 19 BUN 42 H Creatinine 1.24 Estim Creat Clear Calc 79.7 Estimated GFR 60 Random Glucose 93 Calcium 8.7 D Magnesium 1.5 L Progress Note: A&P Assessment and plan (1) Acute on chronic systolic (congestive) heart failure: Status: Acute (2) Persistent atrial fibrillation: Status: Acute Assessment and Plan: Continue IV diuretics as currently on. As the blood pressure is improving, we can start resuming some of his home medication. We will get an echocardiogram on Tuesday. It does not appear that he ever had ischemia workup in past and that will need to be addressed as outpt. Fall Risk Details Current Medications: Current Medications Generic Name Dose Route Start Last Admin Trade Name Freq PRN Reason Stop Dose Admin Acetaminophen 650 mg 01/11/20 18:13 Acetaminophen 325 Mg Tablet PO Q6H PRN Pain, Mild (Pain Scale 1-3) Alprazolam 1 mg 01/12/20 20:00 01/13/20 09:43 Alprazolam 0.5 Mg Tablet PO Not Given DAILY WESTLEY Apixaban 5 mg 01/13/20 09:00 01/13/20 09:34 Apixaban 2.5 Mg Tablet PO 5 mg BID WESTLEY Administration Carvedilol 3.125 mg 01/13/20 12:00 01/13/20 12:19 Carvedilol 3.125 Mg Tablet PO 3.125 mg BID WESTLEY Administration Protocol Docusate Sodium 100 mg 01/11/20 18:13 Docusate Sodium 100 Mg Capsule PO DAILY PRN Constipation Furosemide 500 mg/ IV 50 mls @ 1 mls/hr 01/11/20 17:00 01/13/20 10:09 Miscellaneous Supplies IVCONT 10 mg/hr .Q24H WESTLEY 1 mls/hr Administration Methadone HCl 5 mg 01/11/20 19:00 01/13/20 12:17 Methadone Hcl 5 Mg Tablet PO 5 mg Q8H WESTLEY Administration Oxycodone HCl 30 mg 01/13/20 07:54 Oxycodone Hcl Immed Release 15 Mg Tablet PO Q6H PRN pain Pharmacy Consult 1 each 01/11/20 14:12 Consult Rx Perform Med Rec MISCELLANE ONCE PRN Consult order Potassium Chloride 40 meq 01/13/20 21:00 Potassium Chloride Er 20 Meq Tab.Er.Prt PO BID WESTLEY Sodium Chloride 3 ml 01/12/20 00:00 01/13/20 09:35 0.9 % Sodium Chloride Flush 3 Ml Syringe IVFLUSH 3 ml QSHIFT WESTLEY Administration Time Spent With Patient Time: Total time spent is greater than 50% in coordination of care (as documented) at patient's floor/unit and/or counseling patient: Time with patient: 15 - 24 minutes Procedures Abscess I/D Date of Service: 01/13/20
[2020-01-13] MEDS: Potassium Chloride ER 20 MEQ TAB.ER.PRT 40 MEQ PO (21:47)
[2020-01-14] VITALS (7 sets, daily range): BP systolic 99–152; BP diastolic 79–104; PULSE 98–164; RESP 20; TEMP 36.2–36.9; O2SAT 95–99
[2020-01-14] MEDS: oxyCODONE HCl Immed Release 15 MG TABLET 30 MG PO (02:52)
[2020-01-14] MEDS: methADONE HCl 5 MG TABLET PO ×2 (02:55→11:22)
[2020-01-14] MEDS: Metoprolol Tartrate 5 MG/5 ML VIAL IVPUSH ×2 (02:58→06:45)
--- NOTE | 2020-01-14 03:09 | PC.NURSE ---
P - HR at 160s on tele, patient on A-fib with RVR I - Paged Dr. Krishnan, ordered Metoprolol 5 mg IV, administered IV push slowly. E- Patient's HR went down to 130s at this time. Will continue to monitor. Coordinated with his primary nurse Bob BUREGSS.
[2020-01-14] MEDS: Morphine Sulfate 2 MG/ML CARTRIDGE IVPUSH (04:10)
[2020-01-14 06:51] LABS: Hematocrit 45.4 % (42-52); Hemoglobin 14.8 g/dl (14.0-18.0); Mean Corpuscular HGB Conc 32.6 g/dl (31.0-36.0); Mean Corpuscular Hemoglobin 28.2 pg (27.0-33.0); Mean Corpuscular Volume 86.5 fL (80-98); Mean Platelet Volume 11.2 fL (9.4-12.4); Platelet Count 235 X10*3/uL (160-400); Red Blood Count 5.25 X10*6/uL (4.60-5.80); Red Cell Distribution Width 15.6 % (11.0-16.0); White Blood Count 11.4 X10*3/uL (4.8-10.8)
[2020-01-14 07:31] LABS: Anion Gap 17 (12-20); Blood Urea Nitrogen 35 mg/dL (9-16); Calcium 9.3 mg/dL (8.4-10.2); Carbon Dioxide 26 mmol/L (22-29); Chloride 99 mmol/L (96-108); Creatinine Clr Calc Pharmacy 79.7; Estimated Glomerular Filt Rate 60; Glucose Random 129 mg/dL (60-115); Potassium 4.3 mmol/l (3.3-5.1); Sodium 138 mmol/L (135-145)
[2020-01-14 07:48] LABS: Magnesium 1.4 mg/dL (1.6-2.6)
[2020-01-14] MEDS: Magnesium Sulfate/H2O 2 GM/50 ML PIGGYBACK IV (08:12)
[2020-01-14] MEDS: 0.9 % Sodium Chloride Flush 3 ML SYRINGE IVFLUSH (08:13)
[2020-01-14] MEDS: carvediloL 6.25 MG TABLET PO (08:13)
[2020-01-14] MEDS: Potassium Chloride ER 20 MEQ TAB.ER.PRT 40 MEQ PO (08:14)
[2020-01-14] MEDS: Apixaban 2.5 MG TABLET 5 MG PO (08:14)
[2020-01-14] MEDS: Magnesium Oxide 400 MG TABLET PO (08:14)
--- NOTE | 2020-01-14 10:13 | PC.NURSE ---
pt refusing high fall risk precautions including non-skid socks and bed alarm. drowsy but arousable. alert and oriented x4. pt states he is leaving around 2 pm today because he can't get any sleep. aware.
--- NOTE | 2020-01-14 12:13 | P.PNCA_ITS ---
Subjective Subjective Principal diagnosis: Acute on chronic systolic CHF, CMP Interval history: Cardiology follow up up his CHF. He reports breathing is feeling a little better. He denies any chest pains, palpitation. States he did not sleep at all last night. Wearing compression stockings on his lower legs. Tells me that he had been taking his meds only once daily and was taking the las ix only if needed, in months prior to his admit. Review of Systems Review of Systems Yes all other systems are reviewed and are negative Constitutional: Denies frequent falls Denies dizziness Cardiovascular: Denies chest pain, Denies chest pain at rest, Denies chest pain with activity, Denies syncope, Denies claudication, Denies lightheadedness, Denies radiating jaw, neck or arm pain, Denies palpitations and Denies orthopnea Respiratory: Denies chest congestion, Denies cough, Denies hemoptysis and Denies pain on inspiration Gastrointestinal: Reports no additional gastrointestinal complaints and Denies abdominal pain Musculoskeletal: Reports no additional musculoskeletal complaints Reports confusion, Denies dizziness, Denies syncope and Denies frequent falls Psychiatric: Reports confusion Endocrine: Denies palpitations Physical Exam Vital Signs: Last Vital Signs Temp 97.1 F 01/14/20 11:59 Pulse 98 01/14/20 11:59 Resp 20 01/14/20 11:59 BP 99/88 01/14/20 11:59 Pulse Ox 97 01/14/20 11:59 Body Mass Index 27.3 Const Other: flat affect, oriented, calm, cooperative General: confusion Orientation/consciousness: confusion HENMT Head: Yes normal to inspection Neck Neck: Yes normal visual inspection and Yes JVD Carotids: carotid upstroke abnormal Resp Effort & Inspection: normal respiratory effort, able to speak in complete sentences and not labored Auscultation: clear to auscultation bilaterally, no crackles, no rales, no rhonchi and no wheezes Cardio Other: heart tones normal with rapid, irreg rate and rhythm Palpation: normal PMI Rate: regular rate Heart sounds: S1 normal heart sound present and S2 normal heart sound present Peripheral pulses: Peripheral pulses 2+ throughout GI Inspection: Yes normal to inspection Skin General skin exam: no rashes or lesions noted Neuro General: confusion Extrem Other: Compression socks on no edema noted above them General: Yes normal to inspection Results Labs and Meds Result diagrams: 01/14/20 06:01 01/14/20 06:01 Lab results: Laboratory Results - last 24 hr 01/14/20 01/14/20 06:01 06:01 WBC 11.4 H RBC 5.25 Hgb 14.8 Hct 45.4 MCV 86.5 MCH 28.2 MCHC 32.6 RDW 15.6 Plt Count 235 D MPV 11.2 Absolute Nucleated RBC 0.000 Nucleated RBC % (auto) 0.0 Sodium 138 Potassium 4.3 Chloride 99 Carbon Dioxide 26 Anion Gap 17 BUN 35 H Creatinine 1.24 Estim Creat Clear Calc 79.7 Estimated GFR 60 Random Glucose 129 H D Calcium 9.3 D Magnesium 1.4 L* Progress Note: A&P Assessment and plan (1) Acute on chronic systolic (congestive) heart failure: Status: Acute Assessment and Plan: Hx of CMP, likely nonischemic, with last EF 15-20%, CHF. Noncompliant with home meds. Admit with sob and being tx of acute on chronic systolic HF. Being diuresed with IV lasix drip. Neg fluid balance 2500cc since admit. He reports some improvement in breathing. Has JVD on exam. Mg low this am and received supplement. Cr 1.24, K 4.3. Continue Lasix drip. Strict I+O monitoring, daily weights. Close monitoring of electrolyte and kidney function with electrolyte replacement as needed. Echo ordered for today. We will follow. (2) Atrial fibrillation and flutter: Status: Acute Assessment and Plan: Persistent afib. Rates not well controlled. He had been taking Carvedilol only once daily. Now on higher dose of 6.25mg bid. Tele shows afib rates 100 to high of 160s in last day. No report of heart palpitations. Cr was elevated on admit at 2.93. Now 1.24. Will avoid Digoxin use at this time. Can further titrate Carvedilol for heart rate control if BP allows. He is on Eliquis for anticoagulation. No report of bleeding. Ongoing Tele monitoring while inpt. (3) Cardiomyopathy: Status: Acute Assessment and Plan: EF 15-20%12/2018. He has been noncomplaint with home meds and cardiology follow up. At home he is supposed to be on carvedilol, entresto. He admits to taking his meds only once a day. Entresto placed on hold on admit due to MARY. Echo pending. Eval for restart of entresto prior to discharge. Fall Risk Details Current Medications: Current Medications Generic Name Dose Route Start Last Admin Trade Name Nikki PRN Reason Stop Dose Admin Acetaminophen 650 mg 01/11/20 18:13 Acetaminophen 325 Mg Tablet PO Q6H PRN Pain, Mild (Pain Scale 1-3) Alprazolam 1 mg 01/12/20 20:00 01/14/20 08:23 Alprazolam 0.5 Mg Tablet PO Not Given DAILY WESTLEY Apixaban 5 mg 01/13/20 09:00 01/14/20 08:14 Apixaban 2.5 Mg Tablet PO 5 mg BID WESTLEY Administration Carvedilol 6.25 mg 01/14/20 09:00 01/14/20 08:13 Carvedilol 6.25 Mg Tablet PO 6.25 mg BID WESTLEY Administration Protocol Docusate Sodium 100 mg 01/11/20 18:13 Docusate Sodium 100 Mg Capsule PO DAILY PRN Constipation Furosemide 500 mg/ IV 50 mls @ 1 mls/hr 01/11/20 17:00 01/13/20 10:09 Miscellaneous Supplies IVCONT 10 mg/hr .Q24H WESTLEY 1 mls/hr Administration Magnesium Oxide 400 mg 01/14/20 08:30 01/14/20 08:14 Magnesium Oxide 400 Mg Tablet PO 400 mg BIDPC WESTLEY Administration Methadone HCl 5 mg 01/11/20 19:00 01/14/20 11:22 Methadone Hcl 5 Mg Tablet PO 5 mg Q8H WESTLEY Administration Oxycodone HCl 30 mg 01/13/20 07:54 01/14/20 02:52 Oxycodone Hcl Immed Release 15 Mg Tablet PO 30 mg Q6H PRN Administration pain Pharmacy Consult 1 each 01/11/20 14:12 Consult Rx Perform Med Rec MISCELLANE ONCE PRN Consult order Potassium Chloride 40 meq 01/13/20 21:00 01/14/20 08:14 Potassium Chloride Er 20 Meq Tab.Er.Prt PO 40 meq BID WESTLEY Administration Sodium Chloride 3 ml 01/12/20 00:00 01/14/20 08:13 0.9 % Sodium Chloride Flush 3 Ml Syringe IVFLUSH 3 ml QSHIFT WESTLEY Administration Time Spent With Patient Time: Total time spent is greater than 50% in coordination of care (as documented) at patient's floor/unit and/or counseling patient: Time with patient: 15 - 24 minutes Procedures Abscess I/D Date of Service: 01/14/20
--- NOTE | 2020-01-14 14:24 | MHC.CM.PN ---
Patient is on IV Lasix for CHF. Discharge plan is home no services, patient has transportation. CM will continue to follow patient for discharge needs.
--- NOTE | 2020-01-14 15:30 | PC.NURSE ---
pt leaving AMA stating I can't sleep . MD at bedside to discuss health risk of leaving AMA, pt alert and oriented and verbalizing understanding of conversation. AMA paperwork signed, IV and tele removed. Pt ambulated off of unit.
--- NOTE | 2020-01-14 16:57 | PM.EVENT ---
Event Note Date of Service: 01/14/20 Event Note: AMA Note Informed by RN that patient had decided to sign out AMA. Patient had wanted to sign out AMA basically every day after admission. He was explained the risk of leaving before medically being stable to due to. He was explained that he risk wornseing of his CHF, A. Fib, NSVT leading to sudden cardiac , NM, respiratory failure, worsening renal failure and even . Patient was fully awake and oriented. He was competent to make his own medical decisions. He elected to sign out AMA and accepted the before mentioned risks. He was informed to return to the ED should he change his mind.
--- NOTE | 2020-01-14 17:01 | PM.EVENT ---
Event Note Date of Service: 01/14/20 Event Note: Discharge Summary in Brief Discharge Diagnosis: 1. Acute on Chronic Systolic CHF 2. A. Fib with RVR 3. MARY 4. Chornic Prescription narcotic use 5. Non-compliance with medical treatment 6. Hypotension HPI This is a 59-year-old poorly compliant gentleman with a known history of cardiomyopathy (? tachycardia induced), with a last known ejection fraction of about 15% on his last transesophageal echo (02/2019) who presents to the hospital with complaints of progressive dyspnea on exertion for the last 2 weeks. Patient reports that he last saw fitting room associate in April 2019 and he does admit to not taking his Lasix unless he was starts swelling up. he does endorse that he does take his other chronic cardiac meds which include Coreg and Eliquis. He reports that over the last several weeks he has noted exertional dyspnea and at this point gets short of breath just walking 10-15 feet. He also endorses some orthopnea. He endorses significant lower extremity swelling. He reports that his dry weight is around 235 lb. He reports that he took 120 mg of Lasix yesterday but did not make much urine or feel better and so he came to the emergency room. In the emergency room, the patient was noted to be hypotensive in the 70s to 80s range and was given 500 cc of fluid with improvement in his blood pressure only to come down to the 90s. However he is clearly fluid overloaded and subsequently intensive care consult was sought. Reportedly at bedside echo was performed by peanut butter maker which showed heart failure with the EF at best 20%. It was felt that his treatment could be safely conducted on telemetry and as such she was admitted there. Hospital Course: Patient was started on lasix gtt. His chf/bp meds were held due to hypotension. His eliquis dose was reduced to renal dosing. Has he was diursed, his MARY and BP improved. His CHF meds were restarted. The plan was for continution of IV lasix gtt and echocardiogram but the patient decided to leave against medical advice.
== END 2020-01-14 15:15 | disposition left against medical advice (07) | DRG 292 ==
LOC: HO.ED 15:25 → HO.IMC 17:26
PROVIDERS: Internal Medicine; Admitting Provider Family Medicine; Emergency Provider Internal Medicine; PCP Internal Medicine; Visit Provider Family Medicine
DX: I11.0 Hypertensive heart disease with heart failure (principal); F11.20 Opioid dependence, uncomplicated; N17.9 Acute kidney failure, unspecified; I48.19 Other persistent atrial fibrillation; I50.23 Acute on chronic systolic (congestive) heart failure; I42.9 Cardiomyopathy, unspecified; I95.9 Hypotension, unspecified; Z20.828 Contact with and (suspected) exposure to other viral communicable diseases; Z79.01 Long term (current) use of anticoagulants; Z79.899 Other long term (current) drug therapy
CPT/HCPCS: 36415; 71045; 80048; 80076; 83735; 83880; 84484; 85025; 85027; 85610; 85730; 87635; 93005; 96361; 96374; 99285; J1940; J2270; J3475; P9047

== ENCOUNTER → 2020-02-28 13:45 | Outpatient (BNVA) | payer MEDICARE, SELFPAY | PROVIDERS: Visit Provider Internal Medicine Cardiovascular Disease | DX: I48.19 Other persistent atrial fibrillation (principal); I42.8 Other cardiomyopathies; I50.23 Acute on chronic systolic (congestive) heart failure | CPT/HCPCS: 99212 ==

== ENCOUNTER 2020-03-28 12:19 | Inpatient (IN) | payer MEDICARE, SELFPAY ==
[2020-03-28] VITALS (8 sets, daily range): BP systolic 73–134; BP diastolic 58–96; PULSE 83–120; RESP 16–20; TEMP 36.4–36.8; O2SAT 93–99; BMI 45.1
--- NOTE | ~2020-03-28 | XR_ITS ---
EXAMINATION: XR CHEST CLINICAL INFORMATION: SOB. COMPARISON: None TECHNIQUE: Frontal view of the chest was obtained. FINDINGS: The lungs are well-expanded with bilateral parahilar increased markings but no acute consolidation seen. There is no pleural effusion. Heart size is enlarged. Pulmonary vascularity is normal. No gross bony abnormality seen. XR/XR chest 1V IMPRESSION: Expanded lungs with increased bilateral parahilar markings. Question interstitial pneumonitis.
--- NOTE | ~2020-03-28 | CT_ITS ---
EXAMINATION: CT CHEST WITHOUT CONTRAST CLINICAL INFORMATION: Shortness of breath COMPARISON: None TECHNIQUE: Multidetector volumetric CT imaging of the chest was done. Axial MIP volume rendering provided. Sagittal and coronal reformatted images were obtained. This CT examination was performed using dose optimization techniques as appropriate, variously including the following: *Automated exposure control *Adjustment of mA and/or kV according to patient size (this includes techniques or standardized protocols for targeted exams where dose is matched to indication/reason for exam; i.e. extremities or head) *Use of iterative reconstruction technique DLP: 597 mGy-cm FINDINGS: LUNGS: There are small 2 mm calcified pulmonary nodules probably representing calcified granulomas. The lungs are otherwise clear.. MEDIASTINUM: The heart is enlarged. There is mild coronary artery calcification. There is no pericardial effusion. Thoracic aorta is normal in caliber. There are small mediastinal nodes. The right lobe of the thyroid gland is prominent. PLEURA: There is no pleural effusion. No pleural mass or thickening. AXILLA: No lymphadenopathy. UPPER ABDOMEN: There is a small amount of ascites. The liver is not completely imaged but may be prominent. The gallbladder is not completely imaged but appears prominent. There are 2 low-attenuation lesions in the upper pole of the left kidney, question representing cysts OSSEOUS STRUCTURES: There are severe degenerative changes at the shoulder joints. There are severe degenerative changes of the thoracic spine. There are postsurgical changes lower cervical spine. There is a small sclerotic lesion right posterior sixth rib. There is a recent appearing left posterior 11th rib fracture. CT/CT chest wo con IMPRESSION: Small calcified pulmonary nodules probably representing calcified granulomas. Enlarged heart. Small amount of ascites. The liver and gallbladder are not completely imaged but appear prominent. Prominent right lobe of thyroid gland. Severe degenerative changes of the spine and shoulder joints. Recent appearing left posterior 11th rib fracture.
--- NOTE | 2020-03-28 12:41 | ECG_ITS ---
Test Reason : SOB Blood Pressure : / mmHG Vent. Rate : 108 BPM Atrial Rate : 102 BPM P-R Int : 000 ms QRS Dur : 114 ms QT Int : 328 ms P-R-T Axes : 000 -40 124 degrees QTc Int : 439 ms Atrial fibrillation with rapid ventricular response Left axis deviation Cannot rule out Inferior infarct (cited on or before 11-JAN-2020) Anterolateral infarct (cited on or before 11-JAN-2020) Abnormal ECG When compared with ECG of 11-JAN-2020 12:52, No significant change was found Referred By: Jarrett Perkins Electronically Signed By:JOSE J POMPA
[2020-03-28 13:26] LABS: MANUAL DIFF FLAG NO
[2020-03-28 13:28] LABS: Basophils Absolute Auto 0.1 X10*3/uL (0.0-0.2); Basophils Percent Auto 1.5 % (0-2); Eosinophils Absolute Auto 0.1 X10*3/uL (0.0-0.4); Hematocrit 48.2 % (42-52); Hemoglobin 15.9 g/dl (14.0-18.0); Imm Gran Abs Auto 0.02 X10*3/uL (0.00-0.03); Imm Gran Pct Auto 0.3 % (0.0-0.4); Lymphocytes Percent Auto 29.8 % (20-40); Mean Corpuscular Hemoglobin 25.8 pg (27.0-33.0); Mean Corpuscular Volume 78.2 fL (80-98); Mean Platelet Volume 10.8 fL (9.4-12.4); Monocytes Absolute Auto 0.7 X10*3/uL (0.1-1.2); Monocytes Percent Auto 9.7 % (2-11); Neutrophils Absolute Auto 3.9 X10*3/uL (2.0-8.3); Neutrophils Percent Auto 57.7 % (45-73); Platelet Count 171 X10*3/uL (160-400); Red Blood Count 6.16 X10*6/uL (4.60-5.80); Red Cell Distribution Width 19.8 % (11.0-16.0); White Blood Count 6.8 X10*3/uL (4.8-10.8)
[2020-03-28 13:33] LABS: INTERNATIONAL NORM RATIO 2.2 (0.9-1.1); Prothrombin Time 26.8 SEC (10.8-13.0)
[2020-03-28 13:36] LABS: Partial Thromboplastin Time 43.5 SEC (24.1-38.0)
--- NOTE | 2020-03-28 13:43 | ED_ITS ---
HPI - SOB/Dyspnea General Chief Complaint: Dyspnea Stated Complaint: shortness of breath Time Seen by Provider: 03/28/20 12:30 Source: EMS Mode of arrival: EMS Limitations: no limitations History of Present Illness HPI Narrative: Increased shortness of breath for the past 1 week MD elicited complaint: shortness of breath Relieving factors: upright position Treatment prior to arrival: oxygen Related Data Home Medications Medication Instructions Recorded Confirmed carvedilol 3.125 mg tablet 3.125 mg PO BID 11/30/19 03/24/20 apixaban 5 mg tablet 5 mg PO BID 01/02/20 03/24/20 Previous Rx's Medication Instructions Recorded gabapentin 800 mg tablet 1,600 mg PO BID #270 tab 12/19/19 alprazolam 1 mg tablet 1 mg PO DAILY 30 Days #30 tab 02/14/20 clonidine HCl 0.2 mg tablet 0.2 mg PO TID 30 Days #90 tab 02/25/20 methadone 5 mg tablet 5 mg PO Q8H 14 Days #42 tab 02/25/20 oxycodone 30 mg tablet 30 mg PO Q4H PRN 14 Days #70 tab 02/25/20 furosemide 80 mg tablet 80 mg PO BID #120 tab 02/29/20 varenicline 1 mg tablet 1 mg PO BID 28 Days #56 tab 03/04/20 doxycycline hyclate 100 mg capsule 100 mg PO DAILY 30 Days #30 cap 03/20/20 Allergies Allergy/AdvReac Type Severity Reaction Status Date / Time zolpidem [Ambien] AdvReac Intermediate sleep Verified 03/28/20 12:29 walking Review of Systems Review of Systems: Constitutional: No Weight loss, No Fever, No Chills, No Night Sweats, No Fatigue, No Malaise ENT/Mouth: No Hearing loss, No Ear Pain, No Nasal Congestion, No Sinus Pain, No Hoarseness, No sore throat, No Rhinorrhea, No Swallowing Difficulty Eyes: No Eye Pain, No Swelling, No Redness, No Foreign Body, No Discharge, No Vision Changes Cardiovascular: No Chest Pain, + SOB No Palpitations Respiratory: No Cough, No Sputum, No Wheezing, No Smoke Exposure, No Dyspnea Gastrointestinal: No Nausea, No Vomiting, No Diarrhea, No Constipation, No abdominal Pain, No Hematochezia, No Melena Genitourinary: No Urinary Frequency, No Hematuria, No Urinary Incontinence, No Urgency, No Flank Pain, No Urinary Flow Changes, No Hesitancy Musculoskeletal: No joint pain, No Myalgias, No Joint Swelling Skin: No Skin Lesions, No rash Neuro: No Weakness, No Numbness, No Paresthesias, No Loss of Consciousness, No Dizziness, No Headache Psych: No Social Issues Heme/Lymph: No Bruising, No Bleeding,No Lymphadenopathy Endocrine: No Polyuria, No Polydipsia, No Temperature Intolerance Yes all other systems are reviewed and are negative [facility] Past Medical History Medical History Atrial fibrillation and flutter Cardiomyopathy CHF (congestive heart failure) Derangement of left shoulder joint Derangement of right shoulder joint Failed back syndrome, cervical Failed back syndrome, lumbar History of cardioversion Left rib fracture Lumbar spondylosis Lumbar spondylosis Persistent atrial fibrillation Surgical History H/O elbow surgery H/O knee surgery History of arteriography History of shoulder surgery History of spinal surgery Family History Family History Father No problems noted. Mother No problems noted. Daughter Breast cancer Social History Social History Household Members: Significant Other Housing: Apartment Alcohol intake: never Smoking Status: Current every day smoker Tobacco Type: Cigarette Cigarettes Per Day: 10 Second Hand Smoke Exposure: No Use of substances other than those prescribed or required for medical reasons: No Advance Directives: No Advance Directives Information Provided: No service: No Current occupational status: unemployed Physical Exam Vital Signs: Vital Signs: Last Vital Signs Temp 97.7 F 03/28/20 12:29 Pulse 120 H 03/28/20 14:42 Resp 20 03/28/20 14:42 BP 113/79 03/28/20 14:42 Pulse Ox 93 03/28/20 14:42 Body Mass Index 45.1 Reviewed Const: General: cooperative and acute distress mild and respiratory; No intoxicated appearing Nutritional Appearance: average body habitus Orientation/consciousness: patient oriented x3 HENMT: Head: Yes normal to inspection Ears: hearing grossly normal bilaterally Eyes: General: appearance normal, both eyes and all related structures Visual Quintero: normal visual quintero by confrontation Neck: Neck: Yes normal visual inspection, No positive Brudzinski's sign, No positive Kernig's sign and No tender Thyroid: Thyroid normal Chest: Chest palpation & inspection: normal inspection of the chest Resp: Effort & Inspection: normal respiratory effort Auscultation: crackles (Bibasilar) Cardio: Jugular venous distension: no JVD Rhythm: abnormal rhythm (Atrial fibrillation) GI: Inspection: Yes normal to inspection Percussion: Yes normal to percussion Auscultation: normal bowel sounds : General: Yes no CVA tenderness Back/Spine/Pelvis: Back: no CVA tenderness Skin: General skin exam: no rashes or lesions noted Neuro: General: patient oriented x3 Extrem: Right lower extremity: edema Details: 2+ Left lower extremity: edema Details: 2+ Course Course Course Narrative: In review 60-year-old male with extensive cardiopulmonary disease and history including history of atrial fibrillation/flutter chronically anticoagulated on Eliquis, history of cardiomyopathy with congestive heart failure with EF of 15% on echo February 2019 with additional history of fell back syndrome, chronic back pain who presents with complaint of shortness of breath ongoing for the past 7 days. He states he has had this issue since April with intermittent exacerbations. Denies any recent upper respiratory symptoms no cough or fever. Upon arrival AP/exam highly consistent with acute CHF. He is on Lasix b.i.d. 80 mg I question compliance will give him 60 mg IV. Workup initiated, does not meet any nexus criteria at this time. Reevaluation(s) Reevaluation #1: Marginal improvement after IV Lasix BMP significant limited from prior. Chest x-ray with nonspecific findings the CT of the chest done this was unremarkable for acute findings. Case discussed with hospitalist for admission. Consultations Consultation #1: Hospitalist Grace Nowak MDM - SOB/Dyspnea Differential Diagnosis Differential diagnosis: Likely congestive heart failure and pneumonia; Unlikely acute exacerbation of chronic obstructive airways disease, asthma with exacerbat ion, pulmonary embolism, pleural effusion, sleep apnea and anemia Medical Records Attestation: I reviewed the patient's medical records. Lab Data Attestation: I reviewed the patient's lab results. Result diagrams: 03/28/20 13:19 03/28/20 13:19 Labs: Lab Results 03/28/20 03/28/2021 Range/Units 13:19 13:19 13:19 WBC 6.8 (4.8-10.8) X10*3/uL RBC 6.16 H (4.60-5.80) X10*6/uL Hgb 15.9 (14.0-18.0) g/dl Hct 48.2 (42-52) % MCV 78.2 L (80-98) fL MCH 25.8 L (27.0-33.0) pg MCHC 33.0 (31.0-36.0) g/dl RDW 19.8 H (11.0-16.0) % Plt Count 171 D (160-400) X10*3/uL MPV 10.8 (9.4-12.4) fL Immature Gran % (Auto) 0.3 (0.0-0.4) % Neut % (Auto) 57.7 (45-73) % Lymph % (Auto) 29.8 (20-40) % [place] % (Auto) 9.7 (2-11) % Eos % (Auto) 1.0 (0-4) % Baso % (Auto) 1.5 (0-2) % Lymph # (Auto) 2.0 (1.2-4.9) X10*3/uL [place] # (Auto) 0.7 (0.1-1.2) X10*3/uL Eos # (Auto) 0.1 (0.0-0.4) X10*3/uL Baso # (Auto) 0.1 (0.0-0.2) X10*3/uL Abs Immat Gran (auto) 0.02 (0.00-0.03) X10*3/uL Absolute Neuts (auto) 3.9 (2.0-8.3) X10*3/uL Absolute Nucleated RBC 0.000 (0.0-0.012) X10*3/uL Nucleated RBC % (auto) 0.0 (0.0-0.2) /100WBC PT 26.8 H (10.8-13.0) SEC INR 2.2 H (0.9-1.1) APTT 43.5 H (24.1-38.0) SEC Sodium 138 (135-145) mmol/L Potassium 4.2 (3.3-5.1) mmol/L Chloride 102 (96-108) mmol/L Carbon Dioxide 23 (22-29) mmol/L Anion Gap 17 (12-20) BUN 18 H (9-16) mg/dL Creatinine 1.27 (0.5-1.4) mg/dL Estim Creat Clear Calc 78.9 Estimated GFR 58 Random Glucose 105 (60-115) mg/dL Calcium 9.1 (8.4-10.2) mg/dL Magnesium 1.7 (1.6-2.6) mg/dL Total Bilirubin 2.6 H (0.0-1.0) mg/dL AST 18 (5-37) U/L ALT 10 (0-40) U/L Alkaline Phosphatase 120 H D (39-117) U/L Troponin I High Sens (<3.5-35.0) ng/L B-Natriuretic Peptide (<100) pg/mL Total Protein 6.7 (6.5-8.0) g/dL Albumin 3.6 (3.5-5.0) g/dL Coronavirus (PCR) (Negative) Influenza Type A (PCR) (Negative) Influenza Type B (PCR) (Negative) RSV RNA Qual (PCR) (Negative) 03/28/20 03/28/20 Range/Units 13:19 13:19 WBC (4.8-10.8) X10*3/uL RBC (4.60-5.80) X10*6/uL Hgb (14.0-18.0) g/dl Hct (42-52) % MCV (80-98) fL MCH (27.0-33.0) pg MCHC (31.0-36.0) g/dl RDW (11.0-16.0) % Plt Count (160-400) X10*3/uL MPV (9.4-12.4) fL Immature Gran % (Auto) (0.0-0.4) % Neut % (Auto) (45-73) % Lymph % (Auto) (20-40) % [place] % (Auto) (2-11) % Eos % (Auto) (0-4) % Baso % (Auto) (0-2) % Lymph # (Auto) (1.2-4.9) X10*3/uL [place] # (Auto) (0.1-1.2) X10*3/uL Eos # (Auto) (0.0-0.4) X10*3/uL Baso # (Auto) (0.0-0.2) X10*3/uL Abs Immat Gran (auto) (0.00-0.03) X10*3/uL Absolute Neuts (auto) (2.0-8.3) X10*3/uL Absolute Nucleated RBC (0.0-0.012) X10*3/uL Nucleated RBC % (auto) (0.0-0.2) /100WBC PT (10.8-13.0) SEC INR (0.9-1.1) APTT (24.1-38.0) SEC Sodium (135-145) mmol/L Potassium (3.3-5.1) mmol/L Chloride (96-108) mmol/L Carbon Dioxide (22-29) mmol/L Anion Gap (12-20) BUN (9-16) mg/dL Creatinine (0.5-1.4) mg/dL Estim Creat Clear Calc Estimated GFR Random Glucose (60-115) mg/dL Calcium (8.4-10.2) mg/dL Magnesium (1.6-2.6) mg/dL Total Bilirubin (0.0-1.0) mg/dL AST (5-37) U/L ALT (0-40) U/L Alkaline Phosphatase (39-117) U/L Troponin I High Sens 10.7 D (<3.5-35.0) ng/L B-Natriuretic Peptide 3950 H (<100) pg/mL Total Protein (6.5-8.0) g/dL Albumin (3.5-5.0) g/dL Coronavirus (PCR) NEGATIVE (Negative) Influenza Type A (PCR) NEGATIVE (Negative) Influenza Type B (PCR) NEGATIVE (Negative) RSV RNA Qual (PCR) NEGATIVE (Negative) Imaging Data Chest x-ray: Radiologist's impression: [address] [id number] ReportSigned Patient: JulesjaquelineDavid LUI#: [id number]: 1Acct:[id number]/Sex: 60 / MADM Date: 03/28/20Loc: HO.EDAttending Dr: Ordering Physician: Jarrett Perkins NP Date of Service: 03/28/20 Procedure(s): XR chest 1V Accession Number(s): [id number] cc: Jarrett Perkins COORDINATOR [employer]~ EXAMINATION: XR CHEST CLINICAL INFORMATION: SOB. COMPARISON: None TECHNIQUE: Frontal view of the chest was obtained. FINDINGS: The lungs are well-expanded with bilateral parahilar increased markings but no acute consolidation seen. There is no pleural effusion. Heart size is enlarged. Pulmonary vascularity is normal. No gross bony abnormality seen. XR/XR chest 1V IMPRESSION: Expanded lungs with increased bilateral parahilar markings. Question interstitial pneumonitis. Dictated By:ABBIE REYES MDSigned By:<Electronically signed by ABBIE REYES MD in OV>03/28/20 1259 DD/ 1241TD/TT: Manager Of Radiology: TORITO CT scan - chest: Radiologist's impression: [address] [id number] Scan ReportSigned Patient: David Amaya JMR#: [id number]: 1Acct:[id number]/Sex: 60 / MADM Date: 03/28/20Loc: HO.EDAttending Dr: Ordering Physician: Jarrett Perkins NP Date of Service: 03/28/20 Procedure(s): CT chest wo con Accession Number(s): [id number] cc: Jarrett Perkins COORDINATOR [employer]~ EXAMINATION: CT CHEST WITHOUT CONTRAST CLINICAL INFORMATION: Shortness of breath COMPARISON: None TECHNIQUE: Multidetector volumetric CT imaging of the chest was done. Axial MIP volume rendering provided. Sagittal and coronal reformatted images were obtained. This CT examination was performed using dose optimization techniques as appropriate, variously including the following: *Automated exposure control *Adjustment of mA and/or kV according to patient size (this includes techniques or standardized protocols for targeted exams where dose is matched to indication/reason for exam; i.e. extremities or head) *Use of iterative reconstruction technique DLP: 597 mGy-cm FINDINGS: LUNGS: There are small 2 mm calcified pulmonary nodules probably representing calcified granulomas. The lungs are otherwise clear.. MEDIASTINUM: The heart is enlarged. There is mild coronary artery calcification. There is no pericardial effusion. Thoracic aorta is normal in caliber. There are small mediastinal nodes. The right lobe of the thyroid gland is prominent. PLEURA: There is no pleural effusion. No pleural mass or thickening. AXILLA: No lymphadenopathy. UPPER ABDOMEN: There is a small amount of ascites. The liver is not completely imaged but may be prominent. The gallbladder is not completely imaged but appears prominent. There are 2 low-attenuation lesions in the upper pole of the left kidney, question representing cysts OSSEOUS STRUCTURES: There are severe degenerative changes at the shoulder joints. There are severe degenerative changes of the thoracic spine. There are postsurgical changes lower cervical spine. There is a small sclerotic lesion right posterior sixth rib. There is a recent appearing left posterior 11th rib fracture. CT/CT chest wo con IMPRESSION: Small calcified pulmonary nodules probably representing calcified granulomas. Enlarged heart. Small amount of ascites. The liver and gallbladder are not completely imaged but appear prominent. Prominent right lobe of thyroid gland. Severe degenerative changes of the spine and shoulder joints. Recent appearing left posterior 11th rib fracture. Dictated By:RONAL LIRA MDSigned By:<Electronically signed by RONAL LIRA MD in OV>03/28/20 1527 DD/ 1440TD/TT: Manager Of Radiology: MYRNA ECG Data Interpretation: Atrial fibrillation with rapid ventricular response Left axis deviation Cannot rule out Inferior infarct (cited on or before 11-JAN-2020) Anterolateral infarct (cited on or before 11-JAN-2020) Abnormal ECG When compared with ECG of 11-JAN-2020 12:52, No significant change was found Discharge Plan Discharge Clinical Impression: Acute on chronic systolic (congestive) heart failure, Atrial fibrillation and flutter Patient Disposition: Admitted As Inpatient Prescriptions: No Action gabapentin 800 mg tablet 1,600 mg PO BID Qty: 270 RF: 8 apixaban 5 mg tablet 5 mg PO BID RF: 0 alprazolam 1 mg tablet 1 mg PO DAILY 30 Days Qty: 30 RF: 2 Chantix Continuing Month Box 1 mg tablet 1 mg PO BID 28 Days Qty: 56 RF: 2 doxycycline hyclate 100 mg capsule 100 mg PO DAILY 30 Days Qty: 30 RF: 0 methadone 5 mg tablet 5 mg PO Q8H 14 Days Qty: 42 RF: 0 oxycodone 30 mg tablet 30 mg PO Q4H PRN (Reason: pain) 14 Days Qty: 70 RF: 0 clonidine HCl 0.2 mg tablet 0.2 mg PO TID 30 Days Qty: 90 RF: 0 furosemide [Lasix] 80 mg tablet 80 mg PO BID Qty: 120 RF: 3 carvedilol 3.125 mg tablet 3.125 mg PO BID RF: 0
[2020-03-28 14:12] LABS: Alanine Aminotransferase 10 U/L (0-40); Albumin Level 3.6 g/dL (3.5-5.0); Alkaline Phosphatase 120 U/L (39-117); Anion Gap 17 (12-20); Aspartate Amino Transferase 18 U/L (5-37); Bilirubin Total 2.6 mg/dL (0.0-1.0); Blood Urea Nitrogen 18 mg/dL (9-16); Calcium 9.1 mg/dL (8.4-10.2); Carbon Dioxide 23 mmol/L (22-29); Chloride 102 mmol/L (96-108); Creatinine Clr Calc Pharmacy 78.9; Estimated Glomerular Filt Rate 58; Glucose Random 105 mg/dL (60-115); Magnesium 1.7 mg/dL (1.6-2.6); Potassium 4.2 mmol/L (3.3-5.1); Sodium 138 mmol/L (135-145); Total Protein 6.7 g/dL (6.5-8.0)
[2020-03-28 14:15] LABS: B Type Natriuretic Peptide 3950 pg/mL (<100); Troponin-I High Sensitivity 10.7 ng/L (<3.5-35.0)
--- NOTE | 2020-03-28 14:15 | PC.NURSE ---
labs drawn, ekg performed, covid swab obtained, cxr performed, run lead afib with occasional pvcs, vss, will continue to monitor.
[2020-03-28 14:19] LABS: Influenza A PCR NEGATIVE (Negative); Influenza B PCR NEGATIVE (Negative); Resp Syncy Virus RNA Qual PCR NEGATIVE (Negative); SARS COV2 PCR INHOUSE NEGATIVE (Negative)
[2020-03-28] MEDS: Furosemide 100 MG/10 ML VIAL 60 MG IVPUSH (14:47)
[2020-03-28] MEDS: oxyCODONE HCl Immed Release 15 MG TABLET 30 MG PO (16:39)
[2020-03-28] MEDS: ALPRAZolam 0.5 MG TABLET 1 MG PO (16:39)
--- NOTE | 2020-03-28 17:08 | P.HPHOSP_ITS ---
History of Present Illness Date of Service: 03/28/20 Chief Complaint: Shortness of breath 60-year-old man presented to the ER with complaints of worsening shortness of breath over the last week. He reports worse shortness of breath with ambulation, stairs, orthopnea. He denied chest pain, nausea vomiting diarrhea. He does have history of congestive failure and reports compliance with his home medications. He denies high sodium foods. BNP is 3, total bilirubin 2.6, coronavirus PCR negative. Chest CT showing small ascites with no consolidation in the lungs. The ER, he received a dose IV Lasix and oxycodone and Xanax. He will be admitted for further management acute on chronic congestive failure exa cerbation. Review of Systems Review of Systems: Denies any recent fever chills or decrease in appetite respiratory See HPI cardiovascular see HPI gastrointestinal denies any dysphagia abdominal pain nausea vomiting or diarrhea genitourinary denies any dysuria frequency or hematuria musculoskeletal chronic back pain neuropsych denies any weakness or seizures all other systems reviewed are negative [facility] Medical History Atrial fibrillation and flutter Cardiomyopathy CHF (congestive heart failure) Derangement of left shoulder joint Derangement of right shoulder joint Failed back syndrome, cervical Failed back syndrome, lumbar History of cardioversion Left rib fracture Lumbar spondylosis Lumbar spondylosis Persistent atrial fibrillation Family History Father No problems noted. Mother No problems noted. Daughter Breast cancer Surgical History H/O elbow surgery H/O knee surgery History of arteriography History of shoulder surgery History of spinal surgery Social History Household Members: Significant Other Housing: Apartment Alcohol intake: never Smoking Status: Current every day smoker Tobacco Type: Cigarette Cigarettes Per Day: 10 Second Hand Smoke Exposure: No Use of substances other than those prescribed or required for medical reasons: No Advance Directives: No Advance Directives Information Provided: No service: No Current occupational status: unemployed Meds Allergies Allergy/AdvReac Type Severity Reaction Status Date / Time zolpidem [Ambien] AdvReac Intermediate sleep Verified 03/28/20 12:29 walking Home Medications Medication Instructions Recorded Confirmed Type carvedilol 3.125 mg tablet 3.125 mg PO BID 11/30/19 03/24/20 History apixaban 5 mg tablet 5 mg PO BID 01/02/20 03/24/20 History sacubitril-valsartan [Entresto] 1 tab PO BID 03/28/20 03/28/20 History Physical Exam Vital Signs and Narrative: Vital Signs: Last Vital Signs Temp 97.7 F 03/28/20 12:29 Pulse 120 H 03/28/20 14:42 Resp 20 03/28/20 14:42 BP 113/79 03/28/20 14:42 Pulse Ox 93 03/28/20 14:42 Body Mass Index 45.1 Appearing in no acute distress head is normocephalic atraumatic eyes pupils are PERRLA sclera is anicteric mouth throat mucous membranes are intact and moist neck is supple no lymphadenopathy, no JVD noted lung sounds clear heart irreg irreg positive bowel sounds, abdomen is soft, nontender neuro patient is alert x3, no focal deficits Results Labs CBC and Chem 7: 03/28/20 13:19 03/28/20 13:19 Labs: Laboratory Results - last 24 hr 03/28/20 03/28/20 03/28/20 13:19 13:19 13:19 MCV 78.2 L MCH 25.8 L MCHC 33.0 RDW 19.8 H Plt Count 171 D MPV 10.8 Immature Gran % (Auto) 0.3 Neut % (Auto) 57.7 Lymph % (Auto) 29.8 [place] % (Auto) 9.7 Eos % (Auto) 1.0 Baso % (Auto) 1.5 Lymph # (Auto) 2.0 [place] # (Auto) 0.7 Eos # (Auto) 0.1 Baso # (Auto) 0.1 Abs Immat Gran (auto) 0.02 Absolute Neuts (auto) 3.9 Absolute Nucleated RBC 0.000 Nucleated RBC % (auto) 0.0 PT 26.8 H INR 2.2 H APTT 43.5 H Anion Gap 17 Estim Creat Clear Calc 78.9 Estimated GFR 58 Random Glucose 105 Calcium 9.1 Magnesium 1.7 Total Bilirubin 2.6 H AST 18 ALT 10 Alkaline Phosphatase 120 H D Troponin I High Sens B-Natriuretic Peptide Total Protein 6.7 Albumin 3.6 Coronavirus (PCR) Influenza Type A (PCR) Influenza Type B (PCR) RSV RNA Qual (PCR) 03/28/20 03/28/20 13:19 13:19 MCV MCH MCHC RDW Plt Count MPV Immature Gran % (Auto) Neut % (Auto) Lymph % (Auto) [place] % (Auto) Eos % (Auto) Baso % (Auto) Lymph # (Auto) [place] # (Auto) Eos # (Auto) Baso # (Auto) Abs Immat Gran (auto) Absolute Neuts (auto) Absolute Nucleated RBC Nucleated RBC % (auto) PT INR APTT Anion Gap Estim Creat Clear Calc Estimated GFR Random Glucose Calcium Magnesium Total Bilirubin AST ALT Alkaline Phosphatase Troponin I High Sens 10.7 D B-Natriuretic Peptide 3950 H Total Protein Albumin Coronavirus (PCR) NEGATIVE Influenza Type A (PCR) NEGATIVE Influenza Type B (PCR) NEGATIVE RSV RNA Qual (PCR) NEGATIVE Imaging Radiologist's Impressions: Impressions Chest X-Ray 03/28/20 12:41 IMPRESSION: Expanded lungs with increased bilateral parahilar markings. Question interstitial pneumonitis. Chest CT 03/28/20 14:40 IMPRESSION: Small calcified pulmonary nodules probably representing calcified granulomas. Enlarged heart. Small amount of ascites. The liver and gallbladder are not completely imaged but appear prominent. Prominent right lobe of thyroid gland. Severe degenerative changes of the spine and shoulder joints. Recent appearing left posterior 11th rib fracture. Assessment and Plan (1) CHF (congestive heart failure): Status: Acute 60 year old man admitted with acute on chronic heart failure. Acute on chronic HFrEF exacerbation. IV Lasix, Cardiology consultation , daily weights, intake and output. Echocardiogram. Continue Entresto. Atrial fibrillation. Rate controlled. Continue Coreg and apixaban. Chronic opioid dependence /chronic back pain. On Oxycodone and methadone. Elevated bilirubin. May be related to heart failure. Diurese and follow liver function. DVT prophylaxis with Eliquis Discussed with Dr. Salter Full code
--- NOTE | 2020-03-28 17:08 | PC.NURSE ---
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
--- NOTE | 2020-03-28 17:43 | PM.EVENT ---
Event Note Date of Service: 03/28/20 Event Note: Addendum to H and P by Mid-level Provider I saw and examined the patient and participated in the berrios portion of the E/M service. I agree with the history and exam as documented by OVERHEAD CLEANER MAINTAINER. Patient likely has exacerbation of CHF, Will admit for IV diuretics and work up. Otherwise, I agree with assessment and plan as outlined in the H and P.
[2020-03-28] MEDS: Gabapentin 400 MG CAPSULE 1600 MG PO (20:28)
[2020-03-28] MEDS: cloNIDine HCL 0.2 MG TABLET PO (20:28)
[2020-03-28] MEDS: methADONE HCl 5 MG TABLET PO (20:29)
[2020-03-28] MEDS: Sacubitril/Valsartan 24/26 1 TAB TABLET PO (20:29)
[2020-03-28] MEDS: carvediloL 3.125 MG TABLET PO (20:31)
[2020-03-28] MEDS: Apixaban 5 MG TABLET PO (20:32)
--- NOTE | 2020-03-28 21:17 | PC.NURSE ---
patient oob to recliner chair independently, cardiac cath rn afib 70-90s, c/o 5-6/10 back pain chronic, will continue to monitor.
[2020-03-29] VITALS (10 sets, daily range): BP systolic 79–132; BP diastolic 42–82; PULSE 58–100; RESP 15–20; TEMP 36.3–36.8; O2SAT 95–100
[2020-03-29] MEDS: 0.9 % Sodium Chloride Flush 3 ML SYRINGE IVFLUSH ×3 (00:46→21:56)
[2020-03-29] MEDS: Furosemide 100 MG/10 ML VIAL 60 MG IVPUSH ×2 (02:30→17:04)
[2020-03-29 06:29] LABS: MANUAL DIFF FLAG NO
[2020-03-29 06:36] LABS: Basophils Absolute Auto 0.1 X10*3/uL (0.0-0.2); Basophils Percent Auto 1.4 % (0-2); Eosinophils Absolute Auto 0.2 X10*3/uL (0.0-0.4); Hematocrit 51.7 % (42-52); Hemoglobin 16.6 g/dl (14.0-18.0); Imm Gran Abs Auto 0.01 X10*3/uL (0.00-0.03); Imm Gran Pct Auto 0.1 % (0.0-0.4); Lymphocytes Absolute Auto 3.1 X10*3/uL (1.2-4.9); Lymphocytes Percent Auto 43.2 % (20-40); Mean Corpuscular HGB Conc 32.1 g/dl (31.0-36.0); Mean Corpuscular Hemoglobin 25.5 pg (27.0-33.0); Mean Corpuscular Volume 79.5 fL (80-98); Mean Platelet Volume 10.8 fL (9.4-12.4); Monocytes Absolute Auto 0.7 X10*3/uL (0.1-1.2); Monocytes Percent Auto 9.2 % (2-11); Neutrophils Percent Auto 43.1 % (45-73); Platelet Count 176 X10*3/uL (160-400); White Blood Count 7.1 X10*3/uL (4.8-10.8)
[2020-03-29 07:08] LABS: B Type Natriuretic Peptide 2625 pg/mL (<100)
--- NOTE | 2020-03-29 07:08 | PC.NURSE ---
report taken from jacquelyn oliva pt appears to be sleeping in bedside recliner, easily arousable to voice. asking about breakfast, pt is covid negative awaiting inpt bed assignment r/t chf exacerbation w fluid overload. rr even/unlabored, speaking in full clear sentences. wctm.
[2020-03-29 07:20] LABS: Alanine Aminotransferase 13 U/L (0-40); Albumin Level 3.7 g/dL (3.5-5.0); Alkaline Phosphatase 116 U/L (39-117); Anion Gap 20 (12-20); Aspartate Amino Transferase 37 U/L (5-37); Bilirubin Total 2.3 mg/dL (0.0-1.0); Blood Urea Nitrogen 21 mg/dL (9-16); Carbon Dioxide 21 mmol/L (22-29); Chloride 101 mmol/L (96-108); Creatinine Clr Calc Pharmacy 68.6; Estimated Glomerular Filt Rate 49; Glucose Random 96 mg/dL (60-115); Potassium 5.1 mmol/L (3.3-5.1); Sodium 137 mmol/L (135-145); Total Protein 7.4 g/dL (6.5-8.0)
--- NOTE | 2020-03-29 08:23 | PC.NURSE ---
pt ambulated to and from bathroom w steady gait.
[2020-03-29] MEDS: Sacubitril/Valsartan 24/26 1 TAB TABLET PO ×2 (09:03→21:46)
[2020-03-29] MEDS: ALPRAZolam 0.5 MG TABLET 1 MG PO (09:03)
[2020-03-29] MEDS: Apixaban 5 MG TABLET PO ×2 (09:03→21:47)
[2020-03-29] MEDS: methADONE HCl 5 MG TABLET PO ×2 (09:04→16:56)
[2020-03-29] MEDS: Gabapentin 400 MG CAPSULE 1600 MG PO ×2 (09:09→21:46)
--- NOTE | 2020-03-29 09:13 | PC.NURSE ---
hospitalist at bedside to ian pt. abdiaziz medications held d/t hypotensive bp. pt axox3, ambulating w steady gait. wctm.
--- NOTE | 2020-03-29 10:38 | PC.NURSE ---
pt easily arousable, evaluated at bedside by pool coordinator. vss.
--- NOTE | 2020-03-29 10:58 | P.PNIM_ITS ---
Subjective Subjective Date of Service: 03/29/20 Physical Exam Vital Signs: Vital Signs: Last Vital Signs Temp 98.3 F 03/29/20 00:00 Pulse 87 03/29/20 10:39 Resp 18 03/29/20 10:39 BP 96/76 03/29/20 10:39 Pulse Ox 98 03/29/20 10:39 Body Mass Index 45.1 Const: General: cooperative and acute distress mild and respiratory; No intoxicated appearing Neck: Neck: Yes tender Resp: Auscultation: crackles (Both) bilateral Cardio: Jugular venous distension: no JVD Rhythm: abnormal rhythm (Atrial fibrillation) GI: Percussion: Yes normal to percussion Auscultation: normal bowel sounds Skin: General skin exam: no rashes or lesions noted Extrem: Right lower extremity: edema Details: 2+ Left lower extremity: edema Details: 2+ Psych: Appearance: grossly normal Objective Data Current Medications Generic Name Dose Route Start Last Admin Trade Name Freq PRN Reason Stop Dose Admin Acetaminophen 650 mg 03/28/20 17:33 Acetaminophen 325 Mg Tablet PO Q6H PRN Pain, Mild (Pain Scale 1-3) Alprazolam 1 mg 03/29/20 09:00 03/29/20 09:03 Alprazolam 0.5 Mg Tablet PO 1 mg DAILY [facility] Administration Apixaban 5 mg 03/28/20 21:00 03/29/20 09:03 Apixaban 5 Mg Tablet PO 5 mg BID [facility] Administration Carvedilol 3.125 mg 03/28/20 21:00 03/29/20 09:07 Carvedilol 3.125 Mg Tablet PO Not Given BID [facility] Protocol Clonidine HCl 0.2 mg 03/28/20 21:00 03/29/20 09:08 Clonidine Hcl 0.2 Mg Tablet PO Not Given TID [facility] Protocol Doxycycline Hyclate 100 mg 03/29/20 09:00 03/29/20 09:04 Doxycycline Hyclate 100 Mg Tablet PO 100 mg DAILY [facility] Administration Furosemide 60 mg 03/29/20 02:00 03/29/20 02:30 Furosemide 100 Mg/10 Ml Vial IVPUSH 60 mg Q12H [facility] Administration Protocol Gabapentin 1,600 mg 03/28/20 21:00 03/29/20 09:09 Gabapentin 400 Mg Capsule PO 1,600 mg BID [facility] Administration Methadone HCl 5 mg 03/28/20 21:00 02/06/21 09:04 Methadone Hcl 5 Mg Tablet PO 5 mg TID [facility] Administration Ondansetron HCl 4 mg 03/28/20 17:33 Ondansetron Hcl 4 Mg/2 Ml Vial IVPUSH Q8H PRN Nausea and Vomiting Oxycodone HCl 30 mg 03/28/20 17:33 Oxycodone Hcl Immed Release 15 Mg Tablet PO Q4H PRN pain Pharmacy Consult 1 each 03/28/20 17:10 Consult Rx Perform Med Rec MISCELLANE ONCE PRN Consult order Sacubitril/Valsartan 1 tab 03/28/20 21:00 03/29/20 09:03 Sacubitril/Valsartan 1 Tab Tablet PO 1 tab BID [facility] Administration Protocol Sodium Chloride 3 ml 03/29/20 00:00 03/29/20 07:34 0.9 % Sodium Chloride Flush 3 Ml Syringe IVFLUSH Not Given QSHIFT ON LICENSE OF [facility] Labs CBC & Chem 7: 03/29/20 06:24 03/29/20 06:24 Assessment and Plan (1) CHF (congestive heart failure): Status: Acute Assessment and Plan: 59 yo M with PMH of CHF (? tachycardia mediated), A. Fib (s/p cardioversion and on amio in the past), chronic pain on multiple opiates, non-compliance with treatment, frequent hospitalization who presents to the hospital with pr ogressive JUSTICE, leg edema and is admitted for CHF exacerbation. 1. Acute on chronic HFrEF exacerbation--persistent signs of fluid overload -Continue IV diuretics -Coreg unless BP low -Entresto unless BP low -Cardilogy eval -Follow weight and I/O -BNP 3950 (03/28)-->2625 (03/29) 2. A. Fib--rate controlled, - coreg as above -eliquis 5 bid, ? need to renally adjust 3. MARY--likely cardiorenal syndrome and should improve following adequate diuresis 4. HypOtension--monitor closely 5. Chronic opiate dependence continue home meds balbuca is NF 6. h/o NSVT--non thus far on this visit keep K>4 and Mg > 2 7. Elevated Bilirubin, normal LFTS, likely from passive liver congestion from CHF, improving bili 2.6--> 2.3 DVT prophylaxis--Eliquis
--- NOTE | 2020-03-29 11:32 | PC.NURSE ---
report given to [facility] hazel bobo
--- NOTE | 2020-03-29 11:33 | PM.CNCAR ---
History of Present Illness History of Present Illness Date of Service: 03/29/20 Consult reason: congestive heart failure Chief complaint: CHF Narrative: This is a cardiology consultation regarding congestive heart failure. He has a diagnosis of nonischemic cardiomyopathy. He has been in the hospital several times. Most recently, he states that he has been gradually worsening in the last few weeks. He has been having increasing shortness of breath and gets short of breath even walking very short distances. He also gets orthopnea when lying flat. Hence he presented to the hospital. He is being treated for acute on chronic heart failure. Otherwise he has a history of atrial fibrillation and has been cardioverted in the past but did not remain in sinus. He seems to be on reasonable medical therapy as an outpatient. Review of Systems Review of Systems: Yes all other systems are reviewed and are negative Cardiovascular: Cardiovascular: Reports as per HPI, Reports no additional cardiovascular complaints, Denies acrocyanosis, Denies cool extremities, Denies painful fingertips, Denies chest pain, Denies chest pain at rest, Denies diaphoresis, Denies syncope, Denies irregular heart rhythm, Denies claudication, Reports leg edema, Denies lightheadedness, Denies palpitations and Reports dyspnea Respiratory: Respiratory: Reports dyspnea Neurologic: Denies syncope Endocrine: Endocrine: Denies palpitations [facility] Past Medical History Medical History Atrial fibrillation and flutter Cardiomyopathy CHF (congestive heart failure) Derangement of left shoulder joint Derangement of right shoulder joint Failed back syndrome, cervical Failed back syndrome, lumbar History of cardioversion Left rib fracture Lumbar spondylosis Lumbar spondylosis Persistent atrial fibrillation Family History Family History Father No problems noted. Mother No problems noted. Daughter Breast cancer Surgical History Surgical History H/O elbow surgery H/O knee surgery History of arteriography History of shoulder surgery History of spinal surgery Social History Social History Household Members: Significant Other Housing: Apartment Alcohol intake: never Smoking Status: Current every day smoker Tobacco Type: Cigarette Cigarettes Per Day: 10 Second Hand Smoke Exposure: No Use of substances other than those prescribed or required for medical reasons: No Advance Directives: No Advance Directives Information Provided: No service: No Current occupational status: unemployed Meds Allergies Allergy/AdvReac Type Severity Reaction Status Date / Time zolpidem [Ambien] AdvReac Intermediate sleep Verified 03/28/20 12:29 walking Home Medications Medication Instructions Recorded Confirmed Type carvedilol 3.125 mg tablet 3.125 mg PO BID 11/30/19 03/28/20 History apixaban 5 mg tablet 5 mg PO BID 01/02/20 03/28/20 History sacubitril-valsartan [Entresto] 1 tab PO BID 03/28/20 03/28/20 History Physical Exam Vital Signs: Vital Signs: Last Vital Signs Temp 98.3 F 03/29/20 00:00 Pulse 87 03/29/20 10:39 Resp 18 03/29/20 10:39 BP 96/76 03/29/20 10:39 Pulse Ox 98 03/29/20 10:39 Body Mass Index 45.1 Const: General: cooperative, comfortable and no acute distress Orientation/consciousness: patient oriented x3 HENMT: Other: Unremarkable Neck: Neck: Yes normal visual inspection Chest: Chest palpation & inspection: normal inspection of the chest Resp: Auscultation: clear to auscultation bilaterally, no crackles and no wheezes Cardio: Jugular venous distension: no JVD Palpation: normal PMI Heart sounds: S1 normal heart sound present, S2 normal heart sound present, no gallops, no murmurs and no rubs GI: Palpation (GI): Soft to palpation Back/Spine/Pelvis: Other: unremarkable Skin: General skin exam: no rashes or lesions noted Neuro: General: patient oriented x3 Extrem: General: Yes edema (1+) Psych: Mental Status: mental status grossly normal Results Labs and Meds Result diagrams: 03/29/20 06:24 03/29/20 06:24 Lab results: Laboratory Results - last 24 hr 03/28/20 03/28/20 03/28/20 13:19 13:19 13:19 WBC 6.8 RBC 6.16 H Hgb 15.9 Hct 48.2 MCV 78.2 L MCH 25.8 L MCHC 33.0 RDW 19.8 H Plt Count 171 D MPV 10.8 Immature Gran % (Auto) 0.3 Neut % (Auto) 57.7 Lymph % (Auto) 29.8 [place] % (Auto) 9.7 Eos % (Auto) 1.0 Baso % (Auto) 1.5 Lymph # (Auto) 2.0 [place] # (Auto) 0.7 Eos # (Auto) 0.1 Baso # (Auto) 0.1 Abs Immat Gran (auto) 0.02 Absolute Neuts (auto) 3.9 Absolute Nucleated RBC 0.000 Nucleated RBC % (auto) 0.0 PT 26.8 H INR 2.2 H APTT 43.5 H Sodium 138 Potassium 4.2 Chloride 102 Carbon Dioxide 23 Anion Gap 17 BUN 18 H Creatinine 1.27 Estim Creat Clear Calc 78.9 Estimated GFR 58 Random Glucose 105 Calcium 9.1 Magnesium 1.7 Total Bilirubin 2.6 H Direct Bilirubin AST 18 ALT 10 Alkaline Phosphatase 120 H D Troponin I High Sens B-Natriuretic Peptide Total Protein 6.7 Albumin 3.6 Coronavirus (PCR) Influenza Type A (PCR) Influenza Type B (PCR) RSV RNA Qual (PCR) 03/28/20 03/28/20 03/29/20 13:19 13:19 06:24 WBC RBC Hgb Hct MCV MCH MCHC RDW Plt Count MPV Immature Gran % (Auto) Neut % (Auto) Lymph % (Auto) [place] % (Auto) Eos % (Auto) Baso % (Auto) Lymph # (Auto) [place] # (Auto) Eos # (Auto) Baso # (Auto) Abs Immat Gran (auto) Absolute Neuts (auto) Absolute Nucleated RBC Nucleated RBC % (auto) PT INR APTT Sodium Potassium Chloride Carbon Dioxide Anion Gap BUN Creatinine Estim Creat Clear Calc Estimated GFR Random Glucose Calcium Magnesium Total Bilirubin Direct Bilirubin AST ALT Alkaline Phosphatase Troponin I High Sens 10.7 D B-Natriuretic Peptide 3950 H 2625 H Total Protein Albumin Coronavirus (PCR) NEGATIVE Influenza Type A (PCR) NEGATIVE Influenza Type B (PCR) NEGATIVE RSV RNA Qual (PCR) NEGATIVE 03/29/20 03/29/20 06:24 06:24 WBC 7.1 RBC 6.50 H Hgb 16.6 Hct 51.7 MCV 79.5 L MCH 25.5 L MCHC 32.1 RDW 20.0 H Plt Count 176 MPV 10.8 Immature Gran % (Auto) 0.1 Neut % (Auto) 43.1 L Lymph % (Auto) 43.2 H [place] % (Auto) 9.2 Eos % (Auto) 3.0 Baso % (Auto) 1.4 Lymph # (Auto) 3.1 [place] # (Auto) 0.7 Eos # (Auto) 0.2 Baso # (Auto) 0.1 Abs Immat Gran (auto) 0.01 Absolute Neuts (auto) 3.0 Absolute Nucleated RBC 0.000 Nucleated RBC % (auto) 0.0 PT INR APTT Sodium 137 Potassium 5.1 D Chloride 101 Carbon Dioxide 21 L Anion Gap 20 BUN 21 H Creatinine 1.46 H Estim Creat Clear Calc 68.6 Estimated GFR 49 Random Glucose 96 Calcium 9.0 Magnesium Total Bilirubin 2.3 H Direct Bilirubin 1.0 H AST 37 D ALT 13 Alkaline Phosphatase 116 Troponin I High Sens B-Natriuretic Peptide Total Protein 7.4 Albumin 3.7 Coronavirus (PCR) Influenza Type A (PCR) Influenza Type B (PCR) RSV RNA Qual (PCR) ECG Attestation: I personally reviewed and interpreted this ECG as follows: Interpretation: EKG with atrial fibrillation at 108/Min; leftward axis; cannot exclude old anterolateral infarct. Imaging Radiologist's impression: Impressions Chest X-Ray 03/28/20 12:41 IMPRESSION: Expanded lungs with increased bilateral parahilar markings. Question interstitial pneumonitis. Chest CT 03/28/20 14:40 IMPRESSION: Small calcified pulmonary nodules probably representing calcified granulomas. Enlarged heart. Small amount of ascites. The liver and gallbladder are not completely imaged but appear prominent. Prominent right lobe of thyroid gland. Severe degenerative changes of the spine and shoulder joints. Recent appearing left posterior 11th rib fracture. Assessment and Plan (1) Acute on chronic systolic (congestive) heart failure: Status: Acute (2) Persistent atrial fibrillation: Status: Acute Continue IV diuretics. At home he apparently takes Lasix 80 mg twice daily. May need to switch to Bumex upon discharge. Continue carvedilol and Entresto. Continue anticoagulation. Can repeat his echocardiogram on Tuesday. Otherwise, need to see if he actually had cardiac catheterization or other ischemia workup as I am not entirely clear if that ever happened. With regard to atrial fibrillation, he has been cardioverted in the past and did not remain in sinus. Last echocardiogram also shows severely dilated left atrium. Hence continue rate control strategy and might consider adding digoxin.
--- NOTE | 2020-03-29 15:43 | MHC.CM.PN ---
CM ATTEMPTED TO MEET WITH PT. PT SLEEPING. CM TO RETURN. IMM LEFT AT BEDSIDE FOR REVIEW.
[2020-03-29] MEDS: cloNIDine HCL 0.2 MG TABLET PO (16:54)
--- NOTE | 2020-03-29 17:34 | PC.NURSE ---
ALTERATION WORKER NOTIFIED THIS RN THAT PATIENT HAD THREE BEATS OF V-TACH. NOTIFIED DOCTOR CHRISTOS. NO NEW ORDERS AT THIS TIME.
[2020-03-29] MEDS: oxyCODONE HCl Immed Release 15 MG TABLET 30 MG PO (21:51)
[2020-03-30] VITALS (9 sets, daily range): BP systolic 94–112; BP diastolic 61–71; PULSE 80–98; RESP 16–20; TEMP 36.4–36.7; O2SAT 95–99
[2020-03-30] MEDS: Sacubitril/Valsartan 24/26 1 TAB TABLET PO ×2 (10:04→22:21)
[2020-03-30] MEDS: carvediloL 3.125 MG TABLET PO ×2 (10:05→22:26)
[2020-03-30] MEDS: Apixaban 5 MG TABLET PO ×2 (10:06→22:19)
[2020-03-30] MEDS: Gabapentin 400 MG CAPSULE 1600 MG PO ×2 (10:07→22:19)
[2020-03-30] MEDS: ALPRAZolam 0.5 MG TABLET 1 MG PO (10:07)
[2020-03-30] MEDS: methADONE HCl 5 MG TABLET PO ×3 (10:08→22:18)
[2020-03-30] MEDS: 0.9 % Sodium Chloride Flush 3 ML SYRINGE IVFLUSH ×3 (10:14→22:31)
--- NOTE | 2020-03-30 10:28 | PC.NURSE ---
Patient did not want his prescribed 1600 mg dosage of Gabapentin. He requested we give him [address] Salter was notified via [employer]; no new orders at this time.
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
--- NOTE | 2020-03-30 11:52 | HO.PM.IMPN ---
Subjective Subjective Date of Service: 03/30/20 Interval History: Seen in follow-up for exacerbation of systolic heart failure. Persistent leg edema. Shortness of breath with exertion. Constitutional Constitutional: Reports difficulty sleeping Cardiovascular Cardiovascular: Reports cool extremities, Reports leg edema (sanjuanita), Reports dyspnea and Reports orthopnea Respiratory Respiratory: Reports dyspnea Physical Exam Vital Signs: Vital Signs: Last Vital Signs Temp 97.8 F 03/30/20 11:50 Pulse 86 03/30/20 11:50 Resp 18 03/30/20 11:50 BP 98/71 03/30/20 11:50 Pulse Ox 99 03/30/20 11:50 Body Mass Index 45.1 Const: General: cooperative and acute distress mild and respiratory; No intoxicated appearing Neck: Neck: Yes tender Resp: Auscultation: crackles (Both) bilateral Cardio: Jugular venous distension: no JVD Rhythm: abnormal rhythm (Atrial fibrillation) GI: Percussion: Yes normal to percussion Auscultation: normal bowel sounds Skin: General skin exam: no rashes or lesions noted Extrem: Right lower extremity: edema Details: 2+ Left lower extremity: edema Details: 2+ Psych: Appearance: grossly normal Objective Data Current Medications Generic Name Dose Route Start Last Admin Trade Name Freq PRN Reason Stop Dose Admin Acetaminophen 650 mg 03/28/20 17:33 Acetaminophen 325 Mg Tablet PO Q6H PRN Pain, Mild (Pain Scale 1-3) Alprazolam 1 mg 03/29/20 09:00 03/30/20 10:07 Alprazolam 0.5 Mg Tablet PO 1 mg DAILY [facility] Administration Apixaban 5 mg 03/28/20 21:00 03/30/20 10:06 Apixaban 5 Mg Tablet PO 5 mg BID [facility] Administration Carvedilol 3.125 mg 03/28/20 21:00 03/30/20 10:05 Carvedilol 3.125 Mg Tablet PO 3.125 mg BID [facility] Administration Protocol Clonidine HCl 0.2 mg 03/28/20 21:00 03/29/20 22:04 Clonidine Hcl 0.2 Mg Tablet PO Not Given TID [facility] Protocol Doxycycline Hyclate 100 mg 03/29/20 09:00 03/30/20 10:06 Doxycycline Hyclate 100 Mg Tablet PO 100 mg DAILY [facility] Administration Furosemide 60 mg 03/29/20 02:00 03/30/20 03:46 Furosemide 100 Mg/10 Ml Vial IVPUSH Not Given Q12H [facility] Protocol Gabapentin 1,600 mg 03/28/20 21:00 03/30/20 10:07 Gabapentin 400 Mg Capsule PO 400 mg BID [facility] Administration Methadone HCl 5 mg 03/28/20 21:00 03/30/20 10:08 Methadone Hcl 5 Mg Tablet PO 5 mg TID [facility] Administration Ondansetron HCl 4 mg 03/28/20 17:33 Ondansetron Hcl 4 Mg/2 Ml Vial IVPUSH Q8H PRN Nausea and Vomiting Oxycodone HCl 30 mg 03/28/20 17:33 03/29/20 21:51 Oxycodone Hcl Immed Release 15 Mg Tablet PO 30 mg Q4H PRN Administration pain Pharmacy Consult 1 each 03/28/20 17:10 Consult Rx Perform Med Rec MISCELLANE ONCE PRN Consult order Sacubitril/Valsartan 1 tab 03/28/20 21:00 03/30/20 10:04 Sacubitril/Valsartan 1 Tab Tablet PO 1 tab BID [facility] Administration Protocol Sodium Chloride 3 ml 03/29/20 00:00 03/30/20 10:14 0.9 % Sodium Chloride Flush 3 Ml Syringe IVFLUSH 3 ml QSHIFT [facility] Administration Labs CBC & Chem 7: 03/29/20 06:24 03/29/20 06:24 Assessment and Plan (1) Acute on chronic systolic (congestive) heart failure: Status: Acute (2) Persistent atrial fibrillation: Status: Acute (3) CHF (congestive heart failure): Status: Acute Assessment and Plan: 59 yo M with PMH of CHF (? tachycardia mediated), A. Fib (s/p cardioversion and on amio in the past), chronic pain on multiple opiates, non-compliance with treatment, frequent hospitalization who presents to the hospital with progressive JUSTICE, leg edema and is admitted for CHF exacerbation. 1. Acute on chronic HFrEF exacerbation--persistent signs of fluid overload -Continue IV diuretics, Lasix 60 iv bid, at home 80 -Add Metolazone -Coreg unless BP low -Entresto unless BP low -Cardilogy following -repeat Echo tomorrow -Follow weight and I/O -BNP 3950 (2)-->2625 (2/6) 2. A. Fib--rate controlled, - coreg as above -eliquis 5 bid, ? need to renally adjust 3. MARY--likely cardiorenal syndrome and should improve following adequate diuresis 4. HypOtension--monitor closely 5. Chronic opiate dependence continue home meds balbuca is NF 6. h/o NSVT--non thus far on this visit keep K>4 and Mg > 2 7. Elevated Bilirubin, normal LFTS, likely from passive liver congestion from CHF, improving bili 2.6--> 2.3 DVT prophylaxis--Eliquis
--- NOTE | 2020-03-30 11:55 | PM.PNCARD ---
Subjective Subjective Date of Service: 03/30/20 Interval history: He is still short of breath. No anginal-type complaints. Leg swelling is still present. Review of Systems Review of Systems Yes all other systems are reviewed and are negative Cardiovascular: Reports as per HPI, Reports no additional cardiovascular complaints, Denies acrocyanosis, Denies cool extremities, Denies painful fingertips, Denies chest pain, Denies chest pain at rest, Denies diaphoresis, Denies syncope, Denies irregular heart rhythm, Denies claudication, Reports leg edema, Denies lightheadedness, Denies palpitations and Reports dyspnea Respiratory: Reports dyspnea Denies syncope Endocrine: Denies palpitations Physical Exam Vital Signs: Last Vital Signs Temp 97.8 F 03/30/20 11:50 Pulse 86 03/30/20 11:50 Resp 18 03/30/20 11:50 BP 98/71 03/30/20 11:50 Pulse Ox 99 03/30/20 11:50 Body Mass Index 45.1 Const General: cooperative, comfortable and no acute distress Orientation/consciousness: patient oriented x3 HENAL Other: Unremarkable Neck Neck: Yes normal visual inspection Chest Chest palpation & inspection: normal inspection of the chest Resp Auscultation: clear to auscultation bilaterally, no crackles and no wheezes Cardio Jugular venous distension: no JVD Palpation: normal PMI Heart sounds: S1 normal heart sound present, S2 normal heart sound present, no gallops, no murmurs and no rubs GI Palpation (GI): Soft to palpation Back/Spine/Pelvis Other: unremarkable Skin General skin exam: no rashes or lesions noted Neuro General: patient oriented x3 Extrem General: Yes edema (1+) Psych Mental Status: mental status grossly normal Results Labs and Meds Result diagrams: 03/29/20 06:24 03/29/20 06:24 ECG Attestation: I personally reviewed and interpreted this ECG as follows: Interpretation: Telemetry with atrial fibrillation between the rates of 80s to 110/Min. Progress Note: A&P Assessment and plan (1) Acute on chronic systolic (congestive) heart failure: Status: Acute (2) Persistent atrial fibrillation: Status: Acute Assessment and Plan: Continue IV diuretics. At home he apparently takes Lasix 80 mg twice daily. Can give a dose of Metolazone. Continue carvedilol and Entresto. Continue anticoagulation. Can repeat his echocardiogram on Tuesday. Otherwise, need to see if he actually had cardiac catheterization or other ischemia workup as I am not entirely clear if that ever happened. With regard to atrial fibrillation, he has been cardioverted in the past and did not remain in sinus. Last echocardiogram also shows severely dilated left atrium. Hence continue rate control strategy. Fall Risk Details Current Medications: Current Medications Generic Name Dose Route Start Last Admin Trade Name Freq PRN Reason Stop Dose Admin Acetaminophen 650 mg 03/28/20 17:33 Acetaminophen 325 Mg Tablet PO Q6H PRN Pain, Mild (Pain Scale 1-3) Alprazolam 1 mg 03/29/20 09:00 03/30/20 10:07 Alprazolam 0.5 Mg Tablet PO 1 mg DAILY [facility] Administration Apixaban 5 mg 03/28/20 21:00 03/30/20 10:06 Apixaban 5 Mg Tablet PO 5 mg BID [facility] Administration Carvedilol 3.125 mg 03/28/20 21:00 03/30/20 10:05 Carvedilol 3.125 Mg Tablet PO 3.125 mg BID [facility] Administration Protocol Clonidine HCl 0.2 mg 03/28/20 21:00 03/29/20 22:04 Clonidine Hcl 0.2 Mg Tablet PO Not Given TID [facility] Protocol Doxycycline Hyclate 100 mg 03/29/20 09:00 03/30/20 10:06 Doxycycline Hyclate 100 Mg Tablet PO 100 mg DAILY [facility] Administration Furosemide 60 mg 03/29/20 02:00 03/30/20 03:46 Furosemide 100 Mg/10 Ml Vial IVPUSH Not Given Q12H [facility] Protocol Gabapentin 1,600 mg 03/28/20 21:00 03/30/20 10:07 Gabapentin 400 Mg Capsule PO 400 mg BID [facility] Administration Methadone HCl 5 mg 03/28/20 21:00 03/30/20 10:08 Methadone Hcl 5 Mg Tablet PO 5 mg TID [facility] Administration Ondansetron HCl 4 mg 03/28/20 17:33 Ondansetron Hcl 4 Mg/2 Ml Vial IVPUSH Q8H PRN Nausea and Vomiting Oxycodone HCl 30 mg 03/28/20 17:33 03/29/20 21:51 Oxycodone Hcl Immed Release 15 Mg Tablet PO 30 mg Q4H PRN Administration pain Pharmacy Consult 1 each 03/28/20 17:10 Consult Rx Perform Med Rec MISCELLANE ONCE PRN Consult order Sacubitril/Valsartan 1 tab 03/28/20 21:00 03/30/20 10:04 Sacubitril/Valsartan 1 Tab Tablet PO 1 tab BID [facility] Administration Protocol Sodium Chloride 3 ml 03/29/20 00:00 03/30/20 10:14 0.9 % Sodium Chloride Flush 3 Ml Syringe IVFLUSH 3 ml QSHIFT [facility] Administration Time Spent With Patient Time: Total time spent is greater than 50% in coordination of care (as documented) at patient's floor/unit and/or counseling patient: Time with patient: less than 15 minutes
[2020-03-30] MEDS: metOLazone 5 MG TABLET PO (14:34)
[2020-03-30] MEDS: Furosemide 100 MG/10 ML VIAL 60 MG IVPUSH (14:39)
--- NOTE | 2020-03-30 16:25 | PC.NURSE ---
Patient refused [address] Salter notified via [employer].
[2020-03-30] MEDS: oxyCODONE HCl Immed Release 15 MG TABLET 30 MG PO (17:18)
[2020-03-31] VITALS (13 sets, daily range): BP systolic 82–144; BP diastolic 58–86; PULSE 51–109; RESP 16–20; TEMP 36.1–37.1; O2SAT 95–98; BMI 45.1
[2020-03-31] MEDS: Furosemide 100 MG/10 ML VIAL 60 MG IVPUSH ×2 (02:08→18:22)
--- NOTE | 2020-03-31 07:30 | CA_ITS ---
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 The visually estimated ejection fraction is <10%. - Severe biatrial enlargement. - There is mild mitral valve regurgitation. - There is severe tricuspid valve regurgitation. - Moderate pulmonary hypertension is present. - The inferior vena cava is dilated and collapses less than 50% with inspiration. Findings Left Ventricle Moderately increased left ventricular cavity size. There is mildly increased left ventricular wall thickness. The left ventricular systolic function is severely decreased. The visually estimated ejection fraction is <10%. There is severe global hypokinesis. Diastolic function is indeterminate on the basis of available data. E/E prime ratio is >15, consistent with elevated filling pressures. Right Ventricle Mildly increased right ventricular cavity size. There is normal right ventricular systolic function. Atria Severe biatrial enlargement. Aortic Valve There is a normal trileaflet aortic valve. There is no aortic valve stenosis. There is no aortic valve regurgitation. Mitral Valve The mitral valve appears normal. There is mild mitral valve regurgitation. There is no mitral valve stenosis. Pulmonic Valve The pulmonic valve was not well visualized. Tricuspid Valve Normal tricuspid valve structure. There is severe tricuspid valve regurgitation. The right ventricular systolic pressure is 48 mmHg. Moderate pulmonary hypertension is present. Great Vessels There is mild dilatation of the ascending aorta measuring 3.70 cm. Venous The inferior vena cava is dilated and collapses less than 50% with inspiration. Pericardium/Pleural There is no evidence of pericardial effusion. Prior Study Comparison Changes noted compared to prior study dated: 02/23/2019. LVEF is worse. Measurements 2D Linear Measurements IVSd: 1.09 0.6-0.9/0.6-1.0 cm LVIDd: 6.23 3.9-5.3/4.2-5.9 cm LVIDd Index: 2.70 2.4-3.2/2.2-3.1 cm/m2 LVIDs: 6.01 2.0-3.6 cm LVPWd: 1.12 0.7-1.1 cm Ao Root: 3.10 2.1-3.5 cm LA Diam: 5.90 2.7-3.8/3.0-4.0 cm LAIDs Index: 2.55 1.5-2.3 cm/m2 LV Mass: 373.78 67-162/88-224 g LV Mass Index: 161.81 43-95/49-115 g/m2 LVOT Diam: 2.10 3.0+(-)1.3 cm 2D Systolic Function EF 4C: 8.59 >55% EF 2C: 15.20 >55% EF BiP: 14.80 >55% Mitral Valve MV Pk E: 0.88 MV Decel Time: 137.00 E'Lateral: 7.25 E'Medial: 3.77 E/E' Med: 23.40 E/E' Lat: 12.20 PHT: 40.00 MVA PHT: 5.50 Decel Dooly: 6.43 Aortic Valve AoV Pk Alex: 1.06 AoV Mn Alex: 0.74 AoV VTI: 0.20 AoV Pk Grad: 4.00 Aov Mn Grad: 3.00 BARBIE Cont.VTI: 1.76 LVOT LVOT Pk Alex: 0.56 LVOT Mn Alex: 0.38 LVOT VTI: 0.10 LVOT Pk Grad: 1.00 LVOT Mn Grad: 1.00 LVOT Diam: 2.10 LVOT Area: 3.46 Diastolic Function MV Pk E: 0.88 E'Medial: 3.77 E/E' Med: 23.40 E' Laterial: 7.25 E/E' Lat: 12.20 Tricuspid Valve TR Pk Alex: 2.73 TR Pk Grad: 30.00 RVSP: 48.00 Great Vessels Aorta Ao Root-2D: 3.10 2.0-3.7 cm Ao Asc: 3.70 2.1-3.4 cm Pulmonary Valve PV Pk Alex: 0.61 Peak PV Grad: 1.00 Updated in Other Vendor System with Status of Final Jay Jay Green MD electronically signed on 03/31/2020 5:24:29 PM with status of Final
[2020-03-31] MEDS: carvediloL 3.125 MG TABLET PO ×2 (07:52→21:00)
[2020-03-31] MEDS: methADONE HCl 5 MG TABLET PO ×3 (07:52→20:58)
[2020-03-31] MEDS: ALPRAZolam 0.5 MG TABLET 1 MG PO (07:53)
[2020-03-31] MEDS: Gabapentin 400 MG CAPSULE 1600 MG PO ×2 (07:53→20:58)
[2020-03-31] MEDS: Apixaban 5 MG TABLET PO ×2 (07:53→21:00)
[2020-03-31] MEDS: 0.9 % Sodium Chloride Flush 3 ML SYRINGE IVFLUSH ×3 (07:55→21:02)
[2020-03-31 09:43] LABS: Anion Gap 14 (12-20); Blood Urea Nitrogen 26 mg/dL (9-16); Carbon Dioxide 33 mmol/L (22-29); Chloride 93 mmol/L (96-108); Creatinine Clr Calc Pharmacy 68.1; Estimated Glomerular Filt Rate 49; Glucose Random 125 mg/dL (60-115); Magnesium 1.8 mg/dL (1.6-2.6); Potassium 3.9 mmol/L (3.3-5.1); Sodium 136 mmol/L (135-145)
[2020-03-31] MEDS: oxyCODONE HCl Immed Release 15 MG TABLET 30 MG PO ×2 (10:17→10:18)
--- NOTE | 2020-03-31 10:29 | P.PNIM_ITS ---
Subjective Subjective Date of Service: 03/31/20 Interval History: Seen in follow up for CHF exacerbation. Continue to have lower extremity edema as well as JUSTICE. Review of Systems Review of Systems: Yes all other systems are reviewed and are negative Constitutional Constitutional: Denies chills and Denies fever(s) Cardiovascular Cardiovascular: Reports leg edema, Denies palpitations and Reports dyspnea on exertion Respiratory Respiratory: Reports dyspnea on exertion Endocrine Endocrine: Denies palpitations Physical Exam Vital Signs: Vital Signs: Last Vital Signs Temp 98.1 F 03/31/20 07:08 Pulse 51 03/31/20 10:12 Resp 16 03/31/20 07:08 BP 92/74 03/31/20 10:12 Pulse Ox 96 03/31/20 07:08 Body Mass Index 45.1 Const: General: comfortable, no acute distress, alert and awake Nutritional Appearance: well nourished Orientation/consciousness: patient oriented x3 HENMT: Head: Yes normocephalic and Yes atraumatic Eyes: Sclerae: sclerae normal Chest: Chest palpation & inspection: normal inspection of the chest Resp: Effort & Inspection: normal respiratory effort and no respiratory distress Auscultation: clear to auscultation bilaterally Cardio: Rate: regular rate Heart sounds: no murmurs GI: Palpation (GI): Soft to palpation and nontender Skin: General skin exam: no rashes or lesions noted Neuro: General: patient oriented x3 Cranial nerves: Yes CN's II-XII intact bilaterally and Yes Bilaterally intact EOM present Extrem: Right lower extremity: edema Details: pitting and 2+ Left lower extremity: edema Details: pitting and 2+ Objective Data Current Medications Generic Name Dose Route Start Last Admin Trade Name Freq PRN Reason Stop Dose Admin Acetaminophen 650 mg 03/28/20 17:33 Acetaminophen 325 Mg Tablet PO Q6H PRN Pain, Mild (Pain Scale 1-3) Alprazolam 1 mg 03/29/20 09:00 03/31/20 07:53 Alprazolam 0.5 Mg Tablet PO 1 mg DAILY [facility] Administration Apixaban 5 mg 03/28/20 21:00 03/31/20 07:53 Apixaban 5 Mg Tablet PO 5 mg BID [facility] Administration Carvedilol 3.125 mg 03/28/20 21:00 03/31/20 07:52 Carvedilol 3.125 Mg Tablet PO 3.125 mg BID [facility] Administration Protocol Clonidine HCl 0.2 mg 03/28/20 21:00 03/31/20 10:20 Clonidine Hcl 0.2 Mg Tablet PO Not Given TID [facility] Protocol Doxycycline Hyclate 100 mg 03/29/20 09:00 03/31/20 07:52 Doxycycline Hyclate 100 Mg Tablet PO 100 mg DAILY [facility] Administration Furosemide 60 mg 03/29/20 02:00 03/31/20 02:08 Furosemide 100 Mg/10 Ml Vial IVPUSH 60 mg Q12H [facility] Administration Protocol Gabapentin 1,600 mg 03/28/20 21:00 03/31/20 07:53 Gabapentin 400 Mg Capsule PO 400 mg BID [facility] Administration Methadone HCl 5 mg 03/28/20 21:00 03/31/20 07:52 Methadone Hcl 5 Mg Tablet PO 5 mg TID [facility] Administration Ondansetron HCl 4 mg 03/28/20 17:33 Ondansetron Hcl 4 Mg/2 Ml Vial IVPUSH Q8H PRN Nausea and Vomiting Oxycodone HCl 30 mg 03/28/20 17:33 03/31/20 10:18 Oxycodone Hcl Immed Release 15 Mg Tablet PO 30 mg Q4H PRN Administration pain Pharmacy Consult 1 each 03/28/20 17:10 Consult Rx Perform Med Rec MISCELLANE ONCE PRN Consult order Sacubitril/Valsartan 1 tab 03/28/20 21:00 03/31/20 10:20 Sacubitril/Valsartan 1 Tab Tablet PO Not Given BID [facility] Protocol Sodium Chloride 3 ml 03/29/20 00:00 03/31/20 07:55 0.9 % Sodium Chloride Flush 3 Ml Syringe IVFLUSH 3 ml QSHIFT [facility] Administration Labs CBC & Chem 7: 03/29/20 06:24 03/31/20 08:39 Assessment and Plan (1) Acute on chronic systolic (congestive) heart failure: Status: Acute (2) Atrial fibrillation and flutter: Status: Acute (3) Failed back syndrome, cervical: Status: Acute (4) Persistent atrial fibrillation: Status: Acute (5) CHF (congestive heart failure): Status: Acute Assessment and Plan: 59 yo M with PMH of CHF (? tachycardia mediated), A. Fib (s/p cardioversion and on amio in the past), chronic pain on multiple opiates, non-compliance with treatment, frequent hospitalization who presents to the hospital with progressive JUSTICE, leg edema and is admitted for CHF exacerbation. 1. Acute on chronic HFrEF exacerbation--persistent signs of fluid overload -Has been receiving IV Lasix 60 iv bid (at home 80) ?Lasix drip given persistent fluid overload and soft blood pressure -Given dose of Metolazone yesterday, however blood pressure continues to be low, will hold off for now -Coreg unless BP low -Entresto unless BP low -Cardilogy following -repeat Echo planned for today -Follow weight and I/O -BNP 3950 (03/28)-->2625 (03/29) 2. A. Fib--rate controlled, -Continue coreg -Contiinue eliquis 5 bid, No need to renally adjust 3. MARY--likely cardiorenal syndrome and should improve following adequate diuresis -monitor renal function 4. HypOtension- -Will decrease clonidine from .2 TID to .1 TID to allow for adequate diuresis -Monitor blood pressure closely 5. Chronic opiate dependence follows with pain management as outpatient continue home meds (methadone, oxycodone, gabapentin) balbuca is NF 6. h/o NSVT--non thus far on this visit keep K>4 and Mg > 2 7. Elevated Bilirubin, normal LFTS, likely from passive liver congestion from CHF, improving bili 2.6--> 2.3 8. h/o folliculitis, uses doxycycline prn at home. will d/c for now DVT prophylaxis--Eliquis
--- NOTE | 2020-03-31 10:47 | PM.PNCARD ---
Subjective Subjective Date of Service: 03/31/20 Review of Systems Review of Systems Yes all other systems are reviewed and are negative Cardiovascular: Reports as per HPI, Reports no additional cardiovascular complaints, Denies acrocyanosis, Denies cool extremities, Denies painful fingertips, Denies chest pain, Denies chest pain at rest, Denies diaphoresis, Denies syncope, Denies irregular heart rhythm, Denies claudication, Reports leg edema, Denies lightheadedness, Denies palpitations and Reports dyspnea Respiratory: Reports dyspnea Denies syncope Endocrine: Denies palpitations Physical Exam Vital Signs: Last Vital Signs Temp 98.1 F 03/31/20 07:08 Pulse 51 03/31/20 10:12 Resp 16 03/31/20 07:08 BP 92/74 03/31/20 10:12 Pulse Ox 96 03/31/20 07:08 Body Mass Index 45.1 Const General: cooperative, comfortable and no acute distress Orientation/consciousness: patient oriented x3 HENMT Other: Unremarkable Neck Neck: Yes normal visual inspection Chest Chest palpation & inspection: normal inspection of the chest Resp Auscultation: clear to auscultation bilaterally, no crackles and no wheezes Cardio Jugular venous distension: no JVD Palpation: normal PMI Heart sounds: S1 normal heart sound present, S2 normal heart sound present, no gallops, no murmurs and no rubs GI Palpation (GI): Soft to palpation Back/Spine/Pelvis Other: unremarkable Skin General skin exam: no rashes or lesions noted Neuro General: patient oriented x3 Extrem General: Yes edema (1+) Psych Mental Status: mental status grossly normal Results Labs and Meds Result diagrams: 03/29/20 06:24 03/31/20 08:39 Lab results: Laboratory Results - last 24 hr 03/31/20 08:39 Sodium 136 Potassium 3.9 D Chloride 93 L Carbon Dioxide 33 H Anion Gap 14 BUN 26 H Creatinine 1.47 H Estim Creat Clear Calc 68.1 Estimated GFR 49 Random Glucose 125 H Calcium 9.0 Magnesium 1.8 Progress Note: A&P Assessment and plan (1) Acute on chronic systolic (congestive) heart failure: Status: Acute (2) Persistent atrial fibrillation: Status: Acute Assessment and Plan: Continue IV diuretics. He responded well to addition of metolazone and is negative -3 L so far. Can give 5 more mg of metolazone today. Continue carvedilol and Entresto. Continue anticoagulation. Can repeat his echocardiogram. Otherwise, need to see if he actually had cardiac catheterization or other ischemia workup as I am not entirely clear if that ever happened. With regard to atrial fibrillation, he has been cardioverted in the past and did not remain in sinus. Last echocardiogram also shows severely dilated left atrium. Hence continue rate control strategy. Fall Risk Details Current Medications: Current Medications Generic Name Dose Route Start Last Admin Trade Name Nikki PRN Reason Stop Dose Admin Acetaminophen 650 mg 03/28/20 17:33 Acetaminophen 325 Mg Tablet PO Q6H PRN Pain, Mild (Pain Scale 1-3) Alprazolam 1 mg 03/29/20 09:00 03/31/20 07:53 Alprazolam 0.5 Mg Tablet PO 1 mg DAILY [facility] Administration Apixaban 5 mg 03/28/20 21:00 03/31/20 07:53 Apixaban 5 Mg Tablet PO 5 mg BID [facility] Administration Carvedilol 3.125 mg 03/28/20 21:00 03/31/20 07:52 Carvedilol 3.125 Mg Tablet PO 3.125 mg BID [facility] Administration Protocol Clonidine HCl 0.1 mg 03/31/20 15:00 Clonidine Hcl 0.1 Mg Tablet PO TID [facility] Protocol Furosemide 60 mg 03/31/20 18:00 Furosemide 100 Mg/10 Ml Vial IVPUSH BID@0900,1800 [facility] Protocol Gabapentin 1,600 mg 03/28/20 21:00 03/31/20 07:53 Gabapentin 400 Mg Capsule PO 400 mg BID [facility] Administration Methadone HCl 5 mg 03/28/20 21:00 03/31/20 07:52 Methadone Hcl 5 Mg Tablet PO 5 mg TID [facility] Administration Ondansetron HCl 4 mg 03/28/20 17:33 Ondansetron Hcl 4 Mg/2 Ml Vial IVPUSH Q8H PRN Nausea and Vomiting Oxycodone HCl 30 mg 03/28/20 17:33 03/31/20 10:18 Oxycodone Hcl Immed Release 15 Mg Tablet PO 30 mg Q4H PRN Administration pain Pharmacy Consult 1 each 03/28/20 17:10 Consult Rx Perform Med Rec MISCELLANE ONCE PRN Consult order Sacubitril/Valsartan 1 tab 03/28/20 21:00 03/31/20 10:20 Sacubitril/Valsartan 1 Tab Tablet PO Not Given BID [facility] Protocol Sodium Chloride 3 ml 03/29/20 00:00 03/31/20 07:55 0.9 % Sodium Chloride Flush 3 Ml Syringe IVFLUSH 3 ml QSHIFT [facility] Administration Time Spent With Patient Time: Total time spent is greater than 50% in coordination of care (as documented) at patient's floor/unit and/or counseling patient: Time with patient: less than 15 minutes
--- NOTE | 2020-03-31 11:14 | MHC.CM.PN ---
DP Male 60 DX CHF. DC to home with assist from GF. He will arrange for transportation at [place]. CM will follow.
[2020-03-31] MEDS: metOLazone 5 MG TABLET PO (13:12)
--- NOTE | 2020-03-31 15:11 | PC.NURSE ---
dR SHER MADE AWARE OF PT'S LOW BP'S PT IS ASYMPTOMATIC.
[2020-03-31] MEDS: cloNIDine HCL 0.1 MG TABLET PO ×2 (15:58→21:00)
[2020-03-31 20:25] LABS: Anion Gap 14 (12-20); Blood Urea Nitrogen 29 mg/dL (9-16); Calcium 8.9 mg/dL (8.4-10.2); Carbon Dioxide 32 mmol/L (22-29); Chloride 91 mmol/L (96-108); Creatinine Clr Calc Pharmacy 63.8; Estimated Glomerular Filt Rate 45; Glucose Random 105 mg/dL (60-115); Magnesium 1.7 mg/dL (1.6-2.6); Sodium 133 mmol/L (135-145)
[2020-03-31] MEDS: Sacubitril/Valsartan 24/26 1 TAB TABLET PO (21:00)
[2020-04-01] VITALS (12 sets, daily range): BP systolic 87–109; BP diastolic 56–87; PULSE 72–97; RESP 18–20; TEMP 36–36.8; O2SAT 95–99
[2020-04-01 06:20] LABS: MANUAL DIFF FLAG NO
[2020-04-01 06:25] LABS: Basophils Percent Auto 0.7 % (0-2); Eosinophils Absolute Auto 0.2 X10*3/uL (0.0-0.4); Hematocrit 45.9 % (42-52); Hemoglobin 14.8 g/dl (14.0-18.0); Imm Gran Abs Auto 0.02 X10*3/uL (0.00-0.03); Imm Gran Pct Auto 0.4 % (0.0-0.4); Lymphocytes Absolute Auto 1.9 X10*3/uL (1.2-4.9); Lymphocytes Percent Auto 32.7 % (20-40); Mean Corpuscular HGB Conc 32.2 g/dl (31.0-36.0); Mean Corpuscular Hemoglobin 25.6 pg (27.0-33.0); Mean Corpuscular Volume 79.4 fL (80-98); Mean Platelet Volume 10.9 fL (9.4-12.4); Monocytes Absolute Auto 0.6 X10*3/uL (0.1-1.2); Monocytes Percent Auto 11.1 % (2-11); Neutrophils Percent Auto 52.1 % (45-73); Platelet Count 193 X10*3/uL (160-400); Red Blood Count 5.78 X10*6/uL (4.60-5.80); Red Cell Distribution Width 19.6 % (11.0-16.0); White Blood Count 5.7 X10*3/uL (4.8-10.8)
[2020-04-01 06:57] LABS: Anion Gap 17 (12-20); Blood Urea Nitrogen 26 mg/dL (9-16); Carbon Dioxide 30 mmol/L (22-29); Chloride 93 mmol/L (96-108); Estimated Glomerular Filt Rate 52; Glucose Random 106 mg/dL (60-115); Potassium 3.8 mmol/L (3.3-5.1); Sodium 136 mmol/L (135-145)
[2020-04-01] MEDS: 0.9 % Sodium Chloride Flush 3 ML SYRINGE IVFLUSH (08:25)
--- NOTE | 2020-04-01 09:11 | P.PNIM_ITS ---
Subjective Subjective Date of Service: 04/01/20 Interval History: Seen in follow up for CHF exacerbation. Persistent lower extremity edema dyspnea with exertion. Echocardiogram yesterday shows significant reduced ejection fraction other by 8-10% Physical Exam Vital Signs: Vital Signs: Last Vital Signs Temp 98.0 F 04/01/20 07:15 Pulse 72 04/01/20 07:15 Resp 18 04/01/20 07:15 BP 92/68 04/01/20 07:15 Pulse Ox 98 04/01/20 07:15 Body Mass Index 45.1 Const: General: cooperative, comfortable, no acute distress, alert, awake and acute distress mild and respiratory; No intoxicated appearing Nutritional Appearance: well nourished Orientation/consciousness: patient oriented x3 HENMT: Head: Yes normocephalic and Yes atraumatic Eyes: Sclerae: sclerae normal Neck: Neck: Yes tender Chest: Chest palpation & inspection: normal inspection of the chest Resp: Effort & Inspection: normal respiratory effort and no respiratory distress Auscultation: clear to auscultation bilaterally and crackles (Both) bilateral Cardio: Jugular venous distension: no JVD Rate: regular rate Rhythm: abnormal rhythm (Atrial fibrillation) Heart sounds: no murmurs GI: Palpation (GI): Soft to palpation and nontender Percussion: Yes normal to percussion Auscultation: normal bowel sounds Skin: General skin exam: no rashes or lesions noted Neuro: General: patient oriented x3 Cranial nerves: Yes CN's II-XII intact bilaterally and Yes Bilaterally intact EOM present Extrem: Right lower extremity: edema Details: pitting and 2+ Left lower extremity: edema Details: pitting and 2+ Psych: Appearance: grossly normal Objective Data Current Medications Generic Name Dose Route Start Last Admin Trade Name Freq PRN Reason Stop Dose Admin Acetaminophen 650 mg 03/28/20 17:33 Acetaminophen 325 Mg Tablet PO Q6H PRN Pain, Mild (Pain Scale 1-3) Alprazolam 1 mg 03/29/20 09:00 03/31/20 07:53 Alprazolam 0.5 Mg Tablet PO 1 mg DAILY [facility] Administration Apixaban 5 mg 03/28/20 21:00 03/31/20 21:00 Apixaban 5 Mg Tablet PO 5 mg BID [facility] Administration Carvedilol 3.125 mg 03/28/20 21:00 03/31/20 21:00 Carvedilol 3.125 Mg Tablet PO 3.125 mg BID [facility] Administration Protocol Clonidine HCl 0.1 mg 03/31/20 15:00 03/31/20 21:00 Clonidine Hcl 0.1 Mg Tablet PO 0.1 mg TID [facility] Administration Protocol Furosemide 60 mg 03/31/20 18:00 03/31/20 18:22 Furosemide 100 Mg/10 Ml Vial IVPUSH 60 mg BID@0900,1800 [facility] Administration Protocol Gabapentin 1,600 mg 03/28/20 21:00 03/31/20 20:58 Gabapentin 400 Mg Capsule PO 400 mg BID [facility] Administration Methadone HCl 5 mg 03/28/20 21:00 03/31/20 20:58 Methadone Hcl 5 Mg Tablet PO 5 mg TID [facility] Administration Ondansetron HCl 4 mg 03/28/20 17:33 Ondansetron Hcl 4 Mg/2 Ml Vial IVPUSH Q8H PRN Nausea and Vomiting Oxycodone HCl 30 mg 03/28/20 17:33 03/31/20 10:18 Oxycodone Hcl Immed Release 15 Mg Tablet PO 30 mg Q4H PRN Administration pain Pharmacy Consult 1 each 03/28/20 17:10 Consult Rx Perform Med Rec MISCELLANE ONCE PRN Consult order Sacubitril/Valsartan 1 tab 03/28/20 21:00 03/31/20 21:00 Sacubitril/Valsartan 24/ 1 Tab Tablet PO 1 tab BID [facility] Administration Protocol Sodium Chloride 3 ml 03/29/20 00:00 04/01/20 08:25 0.9 % Sodium Chloride Flush 3 Ml Syringe IVFLUSH 3 ml QSHIFT [facility] Administration Labs CBC & Chem 7: 04/01/20 05:29 04/01/20 05:29 Assessment and Plan (1) Acute on chronic systolic (congestive) heart failure: Status: Acute (2) Atrial fibrillation and flutter: Status: Acute (3) Failed back syndrome, cervical: Status: Acute (4) Persistent atrial fibrillation: Status: Acute (5) CHF (congestive heart failure): Status: Acute Assessment and Plan: 59 yo M with PMH of CHF (? tachycardia mediated), A. Fib (s/p cardioversion and on amio in the past), chronic pain on multiple opiates, non-compliance with treatment, frequent hospitalization who presents to the hospital with progressive JUSTICE, leg edema and is admitted for CHF exacerbation. 1. Acute on chronic HFrEF exacerbation--persistent signs of fluid overload, EF 8-10%. -Has been receiving IV Lasix 60 iv bid (at home 80), changed to Bumex drip, add metolazone -continue Coreg unless BP low -continue Entresto unless BP low -Cardilogy following -Follow weight and I/O -check BNP tomorrow. -measure I&Os and weight, restrict salt 2. A. Fib--rate controlled, -Continue coreg -Continue eliquis 5 bid, No need to renally adjusted 3. MARY--likely cardiorenal syndrome and should improve following adequate diuresis -renal function is getting better 4. HypOtension-BP has been running on the lower side likely because of the severe reduced ejection fraction and also medication. -will discontinue clonidine at this point. And continue other medication with close monitoring of the blood pressure. 5. Chronic opiate dependence follows with pain management as outpatient continue home meds (methadone, oxycodone, gabapentin) balbuca is NF 6. h/o NSVT--non thus far on this visit keep K>4 and Mg > 2 7. Elevated Bilirubin, normal LFTS, likely from passive liver congestion from CHF, improving bili 2.6--> 2.3 8. h/o folliculitis, uses doxycycline prn at home. will d/c for now DVT prophylaxis--Eliquis
[2020-04-01] MEDS: ALPRAZolam 0.5 MG TABLET 1 MG PO (09:33)
[2020-04-01] MEDS: Sacubitril/Valsartan 24/26 1 TAB TABLET PO ×2 (09:33→20:45)
[2020-04-01] MEDS: carvediloL 3.125 MG TABLET PO ×2 (09:34→20:46)
[2020-04-01] MEDS: Apixaban 5 MG TABLET PO ×2 (09:34→20:46)
[2020-04-01] MEDS: methADONE HCl 5 MG TABLET PO ×3 (09:35→20:46)
[2020-04-01] MEDS: oxyCODONE HCl Immed Release 15 MG TABLET 30 MG PO ×3 (09:37→20:56)
[2020-04-01] MEDS: Gabapentin 400 MG CAPSULE 1600 MG PO ×2 (09:37→20:46)
[2020-04-01] MEDS: metOLazone 5 MG TABLET PO (10:11)
[2020-04-01] MEDS: Bumetanide 25 MG in Container,Empty 0 ML IVCONT (10:12)
--- NOTE | 2020-04-01 10:30 | PM.PNCARD ---
Subjective Subjective Date of Service: 04/01/20 Interval history: Has shortness of breath and volume overloaded. Review of Systems Review of Systems Yes all other systems are reviewed and are negative Cardiovascular: Reports as per HPI, Reports no additional cardiovascular complaints, Denies acrocyanosis, Denies cool extremities, Denies painful fingertips, Denies chest pain, Denies chest pain at rest, Denies diaphoresis, Denies syncope, Denies irregular heart rhythm, Denies claudication, Reports leg edema, Denies lightheadedness, Denies palpitations and Reports dyspnea Respiratory: Reports dyspnea Denies syncope Endocrine: Denies palpitations Physical Exam Vital Signs: Last Vital Signs Temp 98.0 F 04/01/20 07:15 Pulse 97 04/01/20 09:39 Resp 18 04/01/20 07:15 BP 96/80 04/01/20 09:39 Pulse Ox 98 04/01/20 07:15 Body Mass Index 45.1 Const General: cooperative, comfortable and no acute distress Orientation/consciousness: patient oriented x3 Neck Neck: Yes normal visual inspection Chest Chest palpation & inspection: normal inspection of the chest Resp Auscultation: clear to auscultation bilaterally, no crackles and no wheezes Cardio Jugular venous distension: no JVD Palpation: normal PMI Heart sounds: S1 normal heart sound present, S2 normal heart sound present, no gallops, no murmurs and no rubs GI Palpation (GI): Soft to palpation Skin General skin exam: no rashes or lesions noted Neuro General: patient oriented x3 Extrem General: Yes edema (1+) Psych Mental Status: mental status grossly normal Results Labs and Meds Result diagrams: 04/01/20 05:29 04/01/20 05:29 Lab results: Laboratory Results - last 24 hr 03/31/20 04/01/20 04/01/20 19:51 05:29 05:29 WBC 5.7 RBC 5.78 Hgb 14.8 Hct 45.9 MCV 79.4 L MCH 25.6 L MCHC 32.2 RDW 19.6 H Plt Count 193 MPV 10.9 Immature Gran % (Auto) 0.4 Neut % (Auto) 52.1 Lymph % (Auto) 32.7 Howell % (Auto) 11.1 H Eos % (Auto) 3.0 Baso % (Auto) 0.7 Lymph # (Auto) 1.9 Howell # (Auto) 0.6 Eos # (Auto) 0.2 Baso # (Auto) 0.0 Abs Immat Gran (auto) 0.02 Absolute Neuts (auto) 3.0 Absolute Nucleated RBC 0.000 Nucleated RBC % (auto) 0.0 Sodium 133 L 136 Potassium 4.0 3.8 Chloride 91 L 93 L Carbon Dioxide 32 H 30 H Anion Gap 14 17 BUN 29 H 26 H Creatinine 1.57 H 1.39 Estim Creat Clear Calc 63.8 72.0 Estimated GFR 45 52 Random Glucose 105 106 Calcium 8.9 9.0 Magnesium 1.7 Progress Note: A&P Assessment and plan (1) Acute on chronic systolic (congestive) heart failure: Status: Acute (2) Persistent atrial fibrillation: Status: Acute Assessment and Plan: Echocardiogram with markedly diminished LVEF at less than 10%. He has severe biatrial enlargement, severe tricuspid regurgitation and moderate pulmonary hypertension. He is not responding well to the IV Lasix and hence we will switch him to IV Bumex drip with metolazone. He is on carvedilol and Entresto. He is also on clonidine. If we can decrease and stop this, then we can go up on the Entresto dose and also add Aldactone. He has been cardioverted for atrial fibrillation but with markedly enlarged left atrium, unlikely that he will respond to the same. Fall Risk Details Current Medications: Current Medications Generic Name Dose Route Start Last Admin Trade Name Freq PRN Reason Stop Dose Admin Acetaminophen 650 mg 03/28/20 17:33 Acetaminophen 325 Mg Tablet PO Q6H PRN Pain, Mild (Pain Scale 1-3) Alprazolam 1 mg 03/29/20 09:00 04/01/20 09:33 Alprazolam 0.5 Mg Tablet PO 1 mg DAILY [facility] Administration Apixaban 5 mg 03/28/20 21:00 04/01/20 09:34 Apixaban 5 Mg Tablet PO 5 mg BID [facility] Administration Carvedilol 3.125 mg 03/28/20 21:00 04/01/20 09:34 Carvedilol 3.125 Mg Tablet PO 3.125 mg BID [facility] Administration Protocol Clonidine HCl 0.1 mg 03/31/20 15:00 04/01/20 09:39 Clonidine Hcl 0.1 Mg Tablet PO Not Given TID [facility] Protocol Gabapentin 1,600 mg 03/28/20 21:00 04/01/20 09:37 Gabapentin 400 Mg Capsule PO 400 mg BID [facility] Administration Bumetanide 25 mg/ IV 100 mls @ 1 mls/hr 04/01/20 09:15 04/01/20 10:12 Miscellaneous Supplies IVCONT 0.25 mg/hr .Q24H [facility] 1 mls/hr Administration 0.25 MG/HR Methadone HCl 5 mg 03/28/20 21:00 04/01/20 09:35 Methadone Hcl 5 Mg Tablet PO 5 mg TID [facility] Administration Ondansetron HCl 4 mg 03/28/20 17:33 Ondansetron Hcl 4 Mg/2 Ml Vial IVPUSH Q8H PRN Nausea and Vomiting Oxycodone HCl 30 mg 03/28/20 17:33 04/01/20 09:37 Oxycodone Hcl Immed Release 15 Mg Tablet PO 30 mg Q4H PRN Administration pain Pharmacy Consult 1 each 03/28/20 17:10 Consult Rx Perform Med Rec MISCELLANE ONCE PRN Consult order Sacubitril/Valsartan 1 tab 03/28/20 21:00 04/01/20 09:33 Sacubitril/Valsartan 24/26 1 Tab Tablet PO 1 tab BID [facility] Administration Protocol Sodium Chloride 3 ml 03/29/20 00:00 04/01/20 08:25 0.9 % Sodium Chloride Flush 3 Ml Syringe IVFLUSH 3 ml QSHIFT [facility] Administration Time Spent With Patient Time: Total time spent is greater than 50% in coordination of care (as documented) at patient's floor/unit and/or counseling patient: Time with patient: less than 15 minutes
[2020-04-01] MEDS: Digoxin 0.25 MG TABLET PO ×2 (11:23→17:44)
[2020-04-02] VITALS (10 sets, daily range): BP systolic 72–95; BP diastolic 52–67; PULSE 79–86; RESP 16–18; TEMP 36.3–36.7; O2SAT 95–99
[2020-04-02] MEDS: Digoxin 0.25 MG TABLET PO ×2 (00:07→06:33)
[2020-04-02] MEDS: 0.9 % Sodium Chloride Flush 3 ML SYRINGE IVFLUSH ×2 (00:07→09:56)
--- NOTE | 2020-04-02 04:55 | MHC.PIE ---
Addendum entered by Jose Zaldivar RN 04/02/20 06:40: BP still low - 76 systolic, still asymptomatic. HR 80's to 90's afib[address] Dr Ray made aware - ordered 2.5mg PO midodrine - awaiting pharmacy to bring. Original Note: P: Low BP 72/52. Confirmed on both arms, manual. Patient asymptomatic, no dizziness. On bumex drip. Receiving Dig po as well. I: Dr Krishnan made aware of BP and patient mental status. Order to hold bumex drip. Held at this time.
--- NOTE | 2020-04-02 04:55 | PM.EVENT ---
Event Note Date of Service: 04/02/20 Event Note: Bumex held due to significantly low BP with SBP <90s
[2020-04-02 06:53] LABS: Anion Gap 19 (12-20); Blood Urea Nitrogen 36 mg/dL (9-16); Calcium 9.1 mg/dL (8.4-10.2); Carbon Dioxide 31 mmol/L (22-29); Chloride 87 mmol/L (96-108); Creatinine Clr Calc Pharmacy 57.5; Estimated Glomerular Filt Rate 40; Glucose Random 83 mg/dL (60-115); Potassium 4.2 mmol/L (3.3-5.1); Sodium 133 mmol/L (135-145)
[2020-04-02] MEDS: Midodrine HCl 2.5 MG TABLET PO (07:13)
[2020-04-02 08:26] LABS: Magnesium 1.7 mg/dL (1.6-2.6)
[2020-04-02 08:29] LABS: B Type Natriuretic Peptide 1020 pg/mL (<100)
[2020-04-02] MEDS: Apixaban 5 MG TABLET PO (09:55)
[2020-04-02] MEDS: methADONE HCl 5 MG TABLET PO (09:55)
--- NOTE | 2020-04-02 10:55 | P.PNCA_ITS ---
Subjective Subjective Date of Service: 04/02/20 Interval history: He is still short of breath. Still has leg swelling. Review of Systems Review of Systems Yes all other systems are reviewed and are negative Cardiovascular: Reports as per HPI, Reports no additional cardiovascular complaints, Denies acrocyanosis, Denies cool extremities, Denies painful finge rtips, Denies chest pain, Denies chest pain at rest, Denies diaphoresis, Denies syncope, Denies irregular heart rhythm, Denies claudication, Reports leg edema, Denies lightheadedness, Denies palpitations and Reports dyspnea Respiratory: Reports dyspnea Denies syncope Endocrine: Denies palpitations Physical Exam Vital Signs: Last Vital Signs Temp 97.3 F 04/02/20 07:39 Pulse 80 04/02/20 07:39 Resp 18 04/02/20 07:39 BP 86/60 L 04/02/20 09:59 Pulse Ox 97 04/02/20 07:39 Body Mass Index 45.1 Const General: cooperative, comfortable and no acute distress Orientation/consciousness: patient oriented x3 Neck Neck: Yes normal visual inspection Chest Chest palpation & inspection: normal inspection of the chest Resp Auscultation: clear to auscultation bilaterally, no crackles and no wheezes Cardio Jugular venous distension: no JVD Palpation: normal PMI Heart sounds: S1 normal heart sound present, S2 normal heart sound present, no gallops, no murmurs and no rubs GI Palpation (GI): Soft to palpation Skin General skin exam: no rashes or lesions noted Neuro General: patient oriented x3 Extrem General: Yes edema (1-2+) Psych Mental Status: mental status grossly normal Results Labs and Meds Result diagrams: 04/01/20 05:29 04/02/20 05:39 Lab results: Laboratory Results - last 24 hr 04/02/20 04/02/20 04/02/20 05:39 07:10 07:10 Sodium 133 L Potassium 4.2 Chloride 87 L Carbon Dioxide 31 H Anion Gap 19 BUN 36 H Creatinine 1.74 H Estim Creat Clear Calc 57.5 Estimated GFR 40 Random Glucose 83 Calcium 9.1 Magnesium 1.7 B-Natriuretic Peptide 1020 H Progress Note: A&P Assessment and plan (1) Acute on chronic systolic (congestive) heart failure: Status: Acute (2) Persistent atrial fibrillation: Status: Acute Assessment and Plan: He received Bumex drip, but with that, his blood pressure went too low into the 70s and hence the drip has been stopped. He is still short of breath with activity and volume overloaded as well. Discussed with the heart failure service at [facility], Dr. Buckley. He will need a [place] catheter as well as inotropes for further care. Possibly assess for left ventricular assist device. Also discussed with daughter who lives in [place]. May be transferred today when bed available. Fall Risk Details Current Medications: Current Medications Generic Name Dose Route Start Last Admin Trade Name Freq PRN Reason Stop Dose Admin Acetaminophen 650 mg 03/28/20 17:33 Acetaminophen 325 Mg Tablet PO Q6H PRN Pain, Mild (Pain Scale 1-3) Alprazolam 1 mg 03/29/20 09:00 04/01/20 09:33 Alprazolam 0.5 Mg Tablet PO 1 mg DAILY [facility] Administration Apixaban 5 mg 03/28/20 21:00 04/02/20 09:55 Apixaban 5 Mg Tablet PO 5 mg BID [facility] Administration Carvedilol 3.125 mg 03/28/20 21:00 04/02/20 09:56 Carvedilol 3.125 Mg Tablet PO Not Given BID [facility] Protocol Clonidine HCl 0.1 mg 03/31/20 15:00 04/02/20 09:56 Clonidine Hcl 0.1 Mg Tablet PO Not Given TID [facility] Protocol Gabapentin 1,600 mg 03/28/20 21:00 04/01/20 20:46 Gabapentin 400 Mg Capsule PO 400 mg BID [facility] Administration Bumetanide 25 mg/ IV 100 mls @ 1 mls/hr 04/01/20 09:15 04/02/20 10:30 Miscellaneous Supplies IVCONT Not Given .Q24H [facility] 0.25 MG/HR Methadone HCl 5 mg 03/28/20 21:00 04/02/20 09:55 Methadone Hcl 5 Mg Tablet PO 5 mg TID [facility] Administration Ondansetron HCl 4 mg 03/28/20 17:33 Ondansetron Hcl 4 Mg/2 Ml Vial IVPUSH Q8H PRN Nausea and Vomiting Oxycodone HCl 30 mg 03/28/20 17:33 04/01/20 20:56 Oxycodone Hcl Immed Release 15 Mg Tablet PO 30 mg Q4H PRN Administration pain Pharmacy Consult 1 each 03/28/20 17:10 Consult Rx Perform Med Rec MISCELLANE ONCE PRN Consult order Sacubitril/Valsartan 1 tab 03/28/20 21:00 04/01/20 20:45 Sacubitril/Valsartan 1 Tab Tablet PO 1 tab BID [facility] Administration Protocol Sodium Chloride 3 ml 03/29/20 00:00 04/02/20 09:56 0.9 % Sodium Chloride Flush 3 Ml Syringe IVFLUSH 3 ml QSHIFT [facility] Administration Time Spent With Patient Time: Total time spent is greater than 50% in coordination of care (as documented) at patient's floor/unit and/or counseling patient: Time with patient: 15 - 24 minutes
[2020-04-02] MEDS: ALPRAZolam 0.5 MG TABLET 1 MG PO (11:06)
--- NOTE | 2020-04-02 11:41 | HO.PM.IMPN ---
Subjective Subjective Date of Service: 04/02/20 Interval History: Seen in follow up for CHF exacerbation. Persistent lower extremity edema dyspnea with exertion. Blood pressure has been on the low side and given midodrine and meds inclduing diuretics on hold. No dizziness, BP slightly better now Constitutional Constitutional: Reports difficulty sleeping Cardiovascular Cardiovascular: Reports cool extremities, Reports leg edema (sanjuanita), Reports dyspnea and Reports orthopnea Respiratory Respiratory: Reports dyspnea Physical Exam Vital Signs: Vital Signs: Last Vital Signs Temp 98.0 F 04/02/20 11:20 Pulse 86 04/02/20 11:20 Resp 18 04/02/20 11:20 BP 94/65 04/02/20 11:20 Pulse Ox 99 04/02/20 11:20 Body Mass Index 45.1 Const: General: cooperative, comfortable, no acute distress, alert, awake and acute distress mild and respiratory; No intoxicated appearing Nutritional Appearance: well nourished Orientation/consciousness: patient oriented x3 HENMT: Head: Yes normocephalic and Yes atraumatic Eyes: Sclerae: sclerae normal Neck: Neck: Yes tender Chest: Chest palpation & inspection: normal inspection of the chest Resp: Effort & Inspection: normal respiratory effort and no respiratory distress Auscultation: clear to auscultation bilaterally and crackles (Both) bilateral Cardio: Jugular venous distension: no JVD Rate: regular rate Rhythm: abnormal rhythm (Atrial fibrillation) Heart sounds: no murmurs GI: Palpation (GI): Soft to palpation and nontender Percussion: Yes normal to percussion Auscultation: normal bowel sounds Skin: General skin exam: no rashes or lesions noted Neuro: General: patient oriented x3 Cranial nerves: Yes CN's II-XII intact bilaterally and Yes Bilaterally intact EOM present Extrem: Right lower extremity: edema Details: pitting and 2+ Left lower extremity: edema Details: pitting and 2+ Psych: Appearance: grossly normal Objective Data Current Medications Generic Name Dose Route Start Last Admin Trade Name Freq PRN Reason Stop Dose Admin Acetaminophen 650 mg 03/28/20 17:33 Acetaminophen 325 Mg Tablet PO Q6H PRN Pain, Mild (Pain Scale 1-3) Alprazolam 1 mg 03/29/20 09:00 04/02/20 11:06 Alprazolam 0.5 Mg Tablet PO 1 mg DAILY [facility] Administration Apixaban 5 mg 03/28/20 21:00 04/02/20 09:55 Apixaban 5 Mg Tablet PO 5 mg BID [facility] Administration Carvedilol 3.125 mg 03/28/20 21:00 04/02/20 09:56 Carvedilol 3.125 Mg Tablet PO Not Given BID [facility] Protocol Clonidine HCl 0.1 mg 03/31/20 15:00 04/02/20 09:56 Clonidine Hcl 0.1 Mg Tablet PO Not Given TID [facility] Protocol Gabapentin 1,600 mg 03/28/20 21:00 04/02/20 11:07 Gabapentin 400 Mg Capsule PO Not Given BID [facility] Bumetanide 25 mg/ IV 100 mls @ 1 mls/hr 04/01/20 09:15 04/02/20 10:30 Miscellaneous Supplies IVCONT Not Given .Q24H [facility] 0.25 MG/HR Methadone HCl 5 mg 03/28/20 21:00 04/02/20 09:55 Methadone Hcl 5 Mg Tablet PO 5 mg TID [facility] Administration Ondansetron HCl 4 mg 03/28/20 17:33 Ondansetron Hcl 4 Mg/2 Ml Vial IVPUSH Q8H PRN Nausea and Vomiting Oxycodone HCl 30 mg 03/28/20 17:33 04/01/20 20:56 Oxycodone Hcl Immed Release 15 Mg Tablet PO 30 mg Q4H PRN Administration pain Pharmacy Consult 1 each 03/28/20 17:10 Consult Rx Perform Med Rec MISCELLANE ONCE PRN Consult order Sacubitril/Valsartan 1 tab 03/28/20 21:00 04/02/20 11:07 Sacubitril/Valsartan 1 Tab Tablet PO Not Given BID [facility] Protocol Sodium Chloride 3 ml 03/29/20 00:00 04/02/20 09:56 0.9 % Sodium Chloride Flush 3 Ml Syringe IVFLUSH 3 ml QSHIFT [facility] Administration Labs CBC & Chem 7: 04/01/20 05:29 04/02/20 05:39 Assessment and Plan (1) Acute on chronic systolic (congestive) heart failure: Status: Acute (2) Atrial fibrillation and flutter: Status: Acute (3) Failed back syndrome, cervical: Status: Acute (4) Persistent atrial fibrillation: Status: Acute (5) CHF (congestive heart failure): Status: Acute Assessment and Plan: 59 yo M with PMH of CHF (? tachycardia mediated), A. Fib (s/p cardioversion and on amio in the past), chronic pain on multiple opiates, non-compliance with treatment, frequent hospitalization who presents to the hospital with progressive JUSTICE, leg edema and is admitted for CHF exacerbation. 1. Acute on chronic HFrEF exacerbation--with very low EF <10% -Has been receiving IV Lasix 60 iv bid (at home 80) however was not diuresing much so that on 04/01 was swithced to Bumex drip at 0.5/hr and given 5 mg of Metolazone. He has diuresse total about 3300cc and remains edematous in the lower extremity. Blood pressures have been borderline low, in fact, dropped to systolic of 70s earlier this morning and diuretics was stopped and given midodrine. Additional Coreg and Entresto were held this mornig. Caridology is considering transfer to [facility] for evaluation for left ventricular assist device. 2. A. Fib--rate controlled, -Continue coreg (may be on hold with low BP) -Continue eliquis 5 bid, No need to renally adjusted 3. MARY--likely cardiorenal syndrome--and likely will improve when adequately diuressed. He presented with Creatine of 1.27 on 03/28/20 and has steadily increased to 1.74 today 03/02/20. Needs close monitoring and nephrology consultation if worsening 4. HypOtension-BP has been running on the lower side likely because of the severe reduced ejection fraction and also medication. Clonidine is discontinued, was taken .2 tid for Psych issues. 5. Chronic opiate dependence follows with pain management as outpatient continue home meds (methadone, oxycodone, gabapentin) balbuca is NF 6. h/o NSVT--non thus far on this visit keep K>4 and Mg > 1.5, presently 1.7 7. Elevated Bilirubin, normal LFTS, likely from passive liver congestion from CHF, improving bili 2.6--> 2.3 8. h/o folliculitis, uses doxycycline prn at home. will d/c for now DVT prophylaxis--Eliquis
--- NOTE | 2020-04-02 11:53 | P.DS_ITS ---
DS: Providers Provider Date of Service: 06/21/20 Date of admission: 03/28/20 17:33 Primary care physician: Jorge Vee PA-C Consults: 03/28/20 17:33 Consult to Cardiology Routine Consulting Provider: Jay Jay Green Reason for consultation: CHF Has provider been notified: No DS: Diagnosis Discharge Diagnosis (1) Acute on chronic systolic (congestive) heart failure: Status: Acute (2) Atrial fibrillation and flutter: (3) Failed back syndrome, cervical: Status: Acute (4) Persistent atrial fibrillation: (5) CHF (congestive heart failure): Status: Deleted DS: Medications Discharge Medications Home Medications: Home Medications Medication Instructions Recorded Confirmed carvedilol 3.125 mg tablet 3.125 mg PO BID 11/30/19 03/28/20 apixaban 5 mg tablet 5 mg PO BID 01/02/20 03/28/20 sacubitril-valsartan [Entresto] 1 tab PO BID 03/28/20 03/28/20 Previous Rx's Medication Instructions Recorded gabapentin 800 mg tablet 1,600 mg PO BID #270 tab 12/19/19 alprazolam 1 mg tablet 1 mg PO DAILY 30 Days #30 tab 02/14/20 clonidine HCl 0.2 mg tablet 0.2 mg PO TID 30 Days #90 tab 02/25/20 methadone 5 mg tablet 5 mg PO Q8H 14 Days #42 tab 02/25/20 oxycodone 30 mg tablet 30 mg PO Q4H PRN 14 Days #70 tab 02/25/20 furosemide 80 mg tablet 80 mg PO BID #120 tab 02/29/20 varenicline 1 mg tablet 1 mg PO BID 28 Days #56 tab 03/04/20 doxycycline hyclate 100 mg capsule 100 mg PO DAILY 30 Days #30 cap 03/20/20 DS: Summary Hospital Course Hospital Course: 59 yo M with PMH of CHF (? tachycardia mediated), A. Fib (s/p cardioversion and on amio in the past), chronic pain on multiple opiates, non-compliance with treatment, frequent hospitalization who presents to the hospital with progressive JUSTICE, leg edema, and is admitted for CHF exacerbation. 1. Acute on chronic HFrEF exacerbation--with very low EF <10% -Has been receiving IV Lasix 60 iv bid (at home 80) however was not diuressing much so that on 04/01 was switched to Bumex drip at 0.5/hr and given 5 mg of Metolazone. He has diuressed a total of about 3300cc and remains edematous in the lower extremities. Blood pressures have been borderline low, in fact, dropped to systolic of the 70s earlier this morning, and diuretics were stopped and given midodrine. Additionallym, Coreg and Entresto were held this morning. Cardiology is recommending to tertiary center [facility] for advance heart failure management. BNP on admission 3950 on 03/28/20 and today04/02/20 1020 2. A. Fib--rate controlled, -Continue coreg (maybe on hold with low BP) -Continue Eiquis 5 bid, No need to renally adjusted 3. MARY--likely cardiorenal syndrome--and likely will improve when adequately diuressed. He presented with Creatine of 1.27 on 03/28/20 and has steadily increased to 1.74 today 03/02/20. Needs close monitoring and nephrology consultation if worsening 4. HypOtension-BP has been running on the lower side likely because of the severely reduced ejection fraction and also medication. Clonidine is discontinued, was taken .2 tid for Psych issues. 5. Chronic opiate dependence follows with pain management as an outpatient continue home meds (methadone, oxycodone, gabapentin) balbuca is NF 6. h/o NSVT--non thus far on this visit 7. Elevated Bilirubin, normal LFTS, likely from passive liver congestion from CHF, improving bili 2.6--> 2.3 8. h/o folliculitis, uses doxycycline prn at home. will d/c for now DVT prophylaxis--Eliquis Time Spent with Patient Time attestation: Total time spent providing and/or coordinating discharge services: Discharge coordination time: Greater than 30 minutes Specific discharge activities: Physical Exam Vital Signs: Vital Signs: Last Vital Signs Temp 98.0 F 04/02/20 11:20 Pulse 86 04/02/20 11:20 Resp 18 04/02/20 11:20 BP 94/65 04/02/20 11:20 Pulse Ox 99 04/02/20 11:20 Body Mass Index 45.1 DS: Data Data Completed and Pending Labs on day of discharge: Laboratory Tests 03/28/20 03/28/20 03/28/20 13:19 13:19 13:19 WBC 6.8 RBC 6.16 H Hgb 15.9 Hct 48.2 MCV 78.2 L MCH 25.8 L MCHC 33.0 RDW 19.8 H Plt Count 171 D MPV 10.8 Immature Gran % (Auto) 0.3 Neut % (Auto) 57.7 Lymph % (Auto) 29.8 [place] % (Auto) 9.7 Eos % (Auto) 1.0 Baso % (Auto) 1.5 Lymph # (Auto) 2.0 [place] # (Auto) 0.7 Eos # (Auto) 0.1 Baso # (Auto) 0.1 Abs Immat Gran (auto) 0.02 Absolute Neuts (auto) 3.9 Absolute Nucleated RBC 0.000 Nucleated RBC % (auto) 0.0 PT 26.8 H INR 2.2 H APTT 43.5 H Sodium 138 Potassium 4.2 Chloride 102 Carbon Dioxide 23 Anion Gap 17 BUN 18 H Creatinine 1.27 Estim Creat Clear Calc 78.9 Estimated GFR 58 Random Glucose 105 Calcium 9.1 Magnesium 1.7 Total Bilirubin 2.6 H Direct Bilirubin AST 18 ALT 10 Alkaline Phosphatase 120 H D Troponin I High Sens B-Natriuretic Peptide Total Protein 6.7 Albumin 3.6 Coronavirus (PCR) Influenza Type A (PCR) Influenza Type B (PCR) RSV RNA Qual (PCR) 03/28/20 03/28/20 03/29/20 13:19 13:19 06:24 WBC RBC Hgb Hct MCV MCH MCHC RDW Plt Count MPV Immature Gran % (Auto) Neut % (Auto) Lymph % (Auto) [place] % (Auto) Eos % (Auto) Baso % (Auto) Lymph # (Auto) [place] # (Auto) Eos # (Auto) Baso # (Auto) Abs Immat Gran (auto) Absolute Neuts (auto) Absolute Nucleated RBC Nucleated RBC % (auto) PT INR APTT Sodium Potassium Chloride Carbon Dioxide Anion Gap BUN Creatinine Estim Creat Clear Calc Estimated GFR Random Glucose Calcium Magnesium Total Bilirubin Direct Bilirubin AST ALT Alkaline Phosphatase Troponin I High Sens 10.7 D B-Natriuretic Peptide 3950 H 2625 H Total Protein Albumin Coronavirus (PCR) NEGATIVE Influenza Type A (PCR) NEGATIVE Influenza Type B (PCR) NEGATIVE RSV RNA Qual (PCR) NEGATIVE 03/29/20 03/29/20 03/31/20 06:24 06:24 08:39 WBC 7.1 RBC 6.50 H Hgb 16.6 Hct 51.7 MCV 79.5 L MCH 25.5 L MCHC 32.1 RDW 20.0 H Plt Count 176 MPV 10.8 Immature Gran % (Auto) 0.1 Neut % (Auto) 43.1 L Lymph % (Auto) 43.2 H [place] % (Auto) 9.2 Eos % (Auto) 3.0 Baso % (Auto) 1.4 Lymph # (Auto) 3.1 [place] # (Auto) 0.7 Eos # (Auto) 0.2 Baso # (Auto) 0.1 Abs Immat Gran (auto) 0.01 Absolute Neuts (auto) 3.0 Absolute Nucleated RBC 0.000 Nucleated RBC % (auto) 0.0 PT INR APTT Sodium 137 136 Potassium 5.1 D 3.9 D Chloride 101 93 L Carbon Dioxide 21 L 33 H Anion Gap 20 14 BUN 21 H 26 H Creatinine 1.46 H 1.47 H Estim Creat Clear Calc 68.6 68.1 Estimated GFR 49 49 Random Glucose 96 125 H Calcium 9.0 9.0 Magnesium 1.8 Total Bilirubin 2.3 H Direct Bilirubin 1.0 H AST 37 D ALT 13 Alkaline Phosphatase 116 Troponin I High Sens B-Natriuretic Peptide Total Protein 7.4 Albumin 3.7 Coronavirus (PCR) Influenza Type A (PCR) Influenza Type B (PCR) RSV RNA Qual (PCR) 03/31/20 04/01/20 04/01/20 19:51 05:29 05:29 WBC 5.7 RBC 5.78 Hgb 14.8 Hct 45.9 MCV 79.4 L MCH 25.6 L MCHC 32.2 RDW 19.6 H Plt Count 193 MPV 10.9 Immature Gran % (Auto) 0.4 Neut % (Auto) 52.1 Lymph % (Auto) 32.7 [place] % (Auto) 11.1 H Eos % (Auto) 3.0 Baso % (Auto) 0.7 Lymph # (Auto) 1.9 [place] # (Auto) 0.6 Eos # (Auto) 0.2 Baso # (Auto) 0.0 Abs Immat Gran (auto) 0.02 Absolute Neuts (auto) 3.0 Absolute Nucleated RBC 0.000 Nucleated RBC % (auto) 0.0 PT INR APTT Sodium 133 L 136 Potassium 4.0 3.8 Chloride 91 L 93 L Carbon Dioxide 32 H 30 H Anion Gap 14 17 BUN 29 H 26 H Creatinine 1.57 H 1.39 Estim Creat Clear Calc 63.8 72.0 Estimated GFR 45 52 Random Glucose 105 106 Calcium 8.9 9.0 Magnesium 1.7 Total Bilirubin Direct Bilirubin AST ALT Alkaline Phosphatase Troponin I High Sens B-Natriuretic Peptide Total Protein Albumin Coronavirus (PCR) Influenza Type A (PCR) Influenza Type B (PCR) RSV RNA Qual (PCR) 04/02/20 04/02/20 04/02/20 05:39 07:10 07:10 WBC RBC Hgb Hct MCV MCH MCHC RDW Plt Count MPV Immature Gran % (Auto) Neut % (Auto) Lymph % (Auto) [place] % (Auto) Eos % (Auto) Baso % (Auto) Lymph # (Auto) [place] # (Auto) Eos # (Auto) Baso # (Auto) Abs Immat Gran (auto) Absolute Neuts (auto) Absolute Nucleated RBC Nucleated RBC % (auto) PT INR APTT Sodium 133 L Potassium 4.2 Chloride 87 L Carbon Dioxide 31 H Anion Gap 19 BUN 36 H Creatinine 1.74 H Estim Creat Clear Calc 57.5 Estimated GFR 40 Random Glucose 83 Calcium 9.1 Magnesium 1.7 Total Bilirubin Direct Bilirubin AST ALT Alkaline Phosphatase Troponin I High Sens B-Natriuretic Peptide 1020 H Total Protein Albumin Coronavirus (PCR) Influenza Type A (PCR) Influenza Type B (PCR) RSV RNA Qual (PCR) Echo: 03/31/20 - The left ventricular systolic function is severely decreased. The visually estimated ejection fraction is <10%. - Severe biatrial enlargement. - There is mild mitral valve regurgitation. - There is severe tricuspid valve regurgitation. - Moderate pulmonary hypertension is present. - The inferior vena cava is dilated and collapses less than 50% with inspiration. CXR 03/28/20 IMPRESSION: Expanded lungs with increased bilateral parahilar markings. Question interstitial pneumonitis. CT chest 03/28/20 IMPRESSION: Small calcified pulmonary nodules probably representing calcified granulomas. Enlarged heart. Small amount of ascites. The liver and gallbladder are not completely imaged but appear prominent. Prominent right lobe of thyroid gland. Severe degenerative changes of the spine and shoulder joints. Recent appearing left posterior 11th rib fracture. Discharge Plan Discharge Anticipated Discharge Date/Time: 04/02/20 12:07 Patient Disposition: Xfer Acute Care Hospital Discharge Diagnosis: heart failure Referrals: Jorge Vee PA-C [Primary Care Provider] - Discharge Medications: Discontinued clonidine HCl 0.2 mg tablet 0.2 mg PO TID 30 Days Qty: 90 RF: 0 furosemide [Lasix] 80 mg tablet 80 mg PO BID Qty: 120 RF: 3 No Action apixaban [Eliquis] 5 mg tablet 5 mg PO BID Qty: 60 RF: 4 alprazolam 1 mg tablet 1 mg PO BEDTIME Qty: 30 RF: 0 gabapentin 800 mg tablet 1,600 mg PO BID Qty: 270 RF: 8 amoxicillin 875 mg tablet 875 mg PO BID 7 Days Qty: 14 RF: 0 oxycodone 10 mg tablet 10 mg PO Q6H PRN (Reason: pain) 30 Days Qty: 120 RF: 0 Discharge Orders: Discharge Order (Routine); Ordered 04/02/20 Ordered By: Chris Salter Diet: advance to usual diet and low salt diet Activity on Discharge: As tolerated Stand Alone Forms: Patient Portal Discharge page Care Plan Goals: Management of advanced heart failure Health Concerns: Heart failure with severely reduced EF Plan of Treatment: To be transfered to [facility] for advanced heart failure managment. Assessment: heart failure Discharge Date/Time: 04/02/20 16:33
--- NOTE | 2020-04-02 12:22 | MHC.INPTTRAN ---
BP low today. 76/60 BP meds held and Bumex gtt stopped. Has been asymptomatic. Able to ambulate without diff. Is on high doses of pain meds and neurontin and xanax. Has chronic pain. at this time has +3 sanjuanita LE edema. Lungs dim in bases. BMP 1020 today. improving from 3959. EF 10%. Last BP 94/65. Grupo diet. Is A@O Thanks.
--- NOTE | 2020-04-02 12:29 | MHC.CM.PN ---
DC today Male 60 dx CHF The pt is being transferred to [facility] via ALS.
== END 2020-04-02 16:33 | disposition short-term general hospital (02) | DRG 292 ==
LOC: HO.ED 16:38 → HO.EDOVER 17:40 → HO.S3 03-29 10:35 → HO.EDOVER 03-29 10:37 → HO.IMC 03-29 11:10
PROVIDERS: Internal Medicine; Nurse Practitioner Acute Care; Nurse Practitioner Primary Care; Physician Assistant Medical; Admitting Provider Internal Medicine; Emergency Provider Emergency Medicine Emergency Medical Services; PCP Physician Assistant; Visit Provider Internal Medicine
DX: I50.23 Acute on chronic systolic (congestive) heart failure (principal); F11.20 Opioid dependence, uncomplicated; N17.9 Acute kidney failure, unspecified; I47.1 Supraventricular tachycardia; I48.19 Other persistent atrial fibrillation; I95.9 Hypotension, unspecified; M96.1 Postlaminectomy syndrome, not elsewhere classified; L73.9 Follicular disorder, unspecified; F17.210 Nicotine dependence, cigarettes, uncomplicated; Z71.6 Tobacco abuse counseling; Z20.822 Contact with and (suspected) exposure to COVID-19; Z79.01 Long term (current) use of anticoagulants; Z79.899 Other long term (current) drug therapy
CPT/HCPCS: 0241U; 36415; 71045; 71250; 80048; 80053; 80076; 83735; 83880; 84484; 85025; 85610; 85730; 93005; 93306; 96374; 99285; J1940

== ENCOUNTER 2020-04-23 17:26 | Outpatient (REF) | payer MEDICARE, SELFPAY ==
[2020-04-23 18:00] LABS: MANUAL DIFF FLAG NO
[2020-04-23 18:01] LABS: Basophils Absolute Auto 0.1 X10*3/uL (0.0-0.2); Basophils Percent Auto 0.8 % (0-2); Eosinophils Absolute Auto 0.2 X10*3/uL (0.0-0.4); Eosinophils Percent Auto 1.8 % (0-4); Hematocrit 46.5 % (42-52); Hemoglobin 14.7 g/dl (14.0-18.0); Imm Gran Abs Auto 0.03 X10*3/uL (0.00-0.03); Imm Gran Pct Auto 0.3 % (0.0-0.4); Lymphocytes Absolute Auto 2.8 X10*3/uL (1.2-4.9); Lymphocytes Percent Auto 32.3 % (20-40); Mean Corpuscular HGB Conc 31.6 g/dl (31.0-36.0); Mean Corpuscular Hemoglobin 25.9 pg (27.0-33.0); Mean Platelet Volume 11.2 fL (9.4-12.4); Monocytes Absolute Auto 0.9 X10*3/uL (0.1-1.2); Monocytes Percent Auto 10.6 % (2-11); Neutrophils Absolute Auto 4.7 X10*3/uL (2.0-8.3); Neutrophils Percent Auto 54.2 % (45-73); Platelet Count 213 X10*3/uL (160-400); Red Blood Count 5.67 X10*6/uL (4.60-5.80); Red Cell Distribution Width 20.6 % (11.0-16.0); White Blood Count 8.7 X10*3/uL (4.8-10.8)
[2020-04-23 18:23] LABS: Alanine Aminotransferase 10 U/L (0-40); Albumin Level 3.7 g/dL (3.5-5.0); Alkaline Phosphatase 141 U/L (39-117); Anion Gap 13 (12-20); Aspartate Amino Transferase 20 U/L (5-37); Bilirubin Total 2.5 mg/dL (0.0-1.0); Blood Urea Nitrogen 16 mg/dL (9-16); Calcium 8.9 mg/dL (8.4-10.2); Carbon Dioxide 27 mmol/L (22-29); Chloride 99 mmol/L (96-108); Estimated Glomerular Filt Rate 49; Glucose Fasting 116 mg/dL (60-99); Sodium 134 mmol/L (135-145); Total Protein 6.8 g/dL (6.5-8.0)
[2020-04-23 18:27] LABS: B Type Natriuretic Peptide 2322 pg/mL (<100)
[2020-04-23 18:42] LABS: Thyroid Stimulating Hormone 7.79 uIU/mL (0.32-4.0)
== END 2020-04-23 17:27 | disposition home or self-care (01) ==
LOC: HO.LAB 17:26
PROVIDERS: Internal Medicine; PCP Physician Assistant; Visit Provider Internal Medicine
DX: R51.9 Headache, unspecified (principal); R53.83 Other fatigue; E03.9 Hypothyroidism, unspecified; I50.9 Heart failure, unspecified
CPT/HCPCS: 36415; 80048; 80053; 83880; 84443; 85025

== ENCOUNTER → 2020-05-08 16:12 | Outpatient (BNVA) | payer MEDICARE, SELFPAY | PROVIDERS: PCP Physician Assistant; Visit Provider Anesthesiology | DX: M47.816 Spondylosis without myelopathy or radiculopathy, lumbar region (principal); M96.1 Postlaminectomy syndrome, not elsewhere classified; R06.02 Shortness of breath; R53.82 Chronic fatigue, unspecified; I42.9 Cardiomyopathy, unspecified; I42.8 Other cardiomyopathies; I48.19 Other persistent atrial fibrillation; I50.32 Chronic diastolic (congestive) heart failure; Z79.899 Other long term (current) drug therapy | CPT/HCPCS: 99212 ==

== ENCOUNTER 2020-05-28 15:28 | Inpatient (IN) | payer MEDICARE, SELFPAY ==
[2020-05-28] VITALS (8 sets, daily range): BP systolic 86–159; BP diastolic 59–77; PULSE 82–106; RESP 18–24; TEMP 36.1–36.4; O2SAT 98–99; BMI 29.2
--- NOTE | 2020-05-28 | ECG_ITS ---
Test Reason : CHEST PAIN Blood Pressure : / mmHG Vent. Rate : 091 BPM Atrial Rate : 288 BPM P-R Int : 000 ms QRS Dur : 120 ms QT Int : 428 ms P-R-T Axes : 000 -38 116 degrees QTc Int : 526 ms Atrial fibrillation with premature ventricular or aberrantly conducted complexes Left axis deviation Cannot rule out Inferior infarct (cited on or before 11-JAN-2020) Anterior infarct (cited on or before 11-JAN-2020) Abnormal ECG When compared with ECG of 28-MAR-2020 13:08, QT has lengthened Referred By: Generic ED Physician Electronically Signed By:TABITHA BIGGS MD
--- NOTE | ~2020-05-28 | XR_ITS ---
EXAMINATION: XR CHEST CLINICAL INFORMATION: Chest pain. COMPARISON: None TECHNIQUE: Frontal view of the chest was obtained. FINDINGS: Heart size is enlarged. Pulmonary vascularity is normal. The lungs are well-expanded and clear. There is moderate spondylosis dorsal spine. No lytic process seen. XR/XR chest 1V IMPRESSION: Moderate cardiomegaly. No acute process seen..
--- NOTE | 2020-05-28 16:38 | ED.CHESTPAIN ---
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 Patient was receiving Lasix at home that in a working Lasix was switched to Bumex and metolazone. Patient presented with chest pain and difficulty breathing for the past 2 days progressively getting worse, mostly exertional, improve with rest, patient admitted of taking his medication at home. Related Data Home Medications Medication Instructions Recorded Confirmed Entresto 1 tab PO BID 03/28/20 03/28/20 Previous Rx's Medication Instructions Recorded gabapentin 800 mg tablet 1,600 mg PO BID #270 tab 12/19/19 alprazolam 1 mg tablet 1 mg PO DAILY 30 Days #30 tab 04/14/20 doxycycline hyclate 100 mg capsule 100 mg PO DAILY 30 Days #30 cap 04/30/20 oxycodone 10 mg tablet 10 mg PO Q6H PRN 30 Days #120 tab 05/08/20 apixaban 5 mg tablet 5 mg PO BID #60 tab 05/13/20 carvedilol 6.25 mg tablet 6.25 mg PO BID 90 Days #180 tab 05/13/20 varenicline 1 mg tablet 1 mg PO BID 28 Days #56 tab 05/26/20 Allergies Allergy/AdvReac Type Severity Reaction Status Date / Time zolpidem [Ambien] AdvReac Intermediate sleep Verified 05/08/20 16:25 walking Review of Systems Review of Systems: All other systems are reviewed and are negative Constitutional: Reports as per HPI and Reports no additional constitutional complaints Eyes: Reports as per HPI and Reports no additional eye complaints Reports system reviewed and no additional complaints, except as documented Cardiovascular: Reports as per HPI and Reports no additional cardiovascular complaints Respiratory: Reports as per HPI and Reports no additional respiratory complaints Gastrointestinal: Reports as per HPI and Reports no additional gastrointestinal complaints Genitourinary: Reports no additional female genitourinary complaints Musculoskeletal: Reports no additional musculoskeletal complaints Skin/Breast: Reports system reviewed and no additional complaints, except as docu Psychiatric: Reports no additional psychiatric complaints Endocrine: Reports no additional endocrine complaints Hematologic/Lymphatic: Reports no additional hematologic/lymphatic complaints Allergic/Immunologic: Reports no additional allergic/immunologic complaints Reports system reviewed and no additional complaints, except as documented and Reports Abnormal speech present [facility] Past Medical History Medical History Atrial fibrillation and flutter Cardiomyopathy CHF (congestive heart failure) Derangement of left shoulder joint Derangement of right shoulder joint Failed back syndrome, cervical Failed back syndrome, lumbar History of cardioversion Left rib fracture Lumbar spondylosis Lumbar spondylosis Persistent atrial fibrillation Surgical History H/O elbow surgery H/O knee surgery History of arteriography History of shoulder surgery History of spinal surgery Family History Family History Father No problems noted. Mother No problems noted. Daughter Breast cancer Social History Social History Household Members: Significant Other Housing: Apartment Alcohol intake: never Smoking Status: Former smoker Tobacco Type: Cigarette Cigarettes Per Day: 10 Second Hand Smoke Exposure: No Advance Directives: No Advance Directives Information Provided: Yes service: Yes Current occupational status: unemployed Physical Exam Vital Signs: Vital Signs: Last Vital Signs Temp 97.6 F 05/28/20 15:40 Pulse 105 H 05/28/20 15:40 Resp 24 H 05/28/20 15:40 BP 86/59 L 05/28/20 15:40 Pulse Ox 99 05/28/20 15:40 Body Mass Index 29.2 Vital signs have been reviewed as appeared to be correct. Blood pressure is low (patient with history of low blood pressure). Heart rate normal. Respiration rate normal. Temperature normal. Oxygen saturation normal. Appearance: Alert. Oriented X3. No acute distress. Head: Normal external exam. Normocephalic. Atraumatic. No Guerrero signs noted. No raccoon eyes noted Eyes: PERRLA. EOMI. Conjunctiva and sclera normal. Eyelids normal. ENT: TM's Normal. Pharynx normal. Uvula midline. Moist mucous membranes. No trismus noted. No drooling noted. No muffled voice noted. Neck: Normal inspection. Neck supple. FROM. No adenopathy. Thyroid Normal. No meningeal signs. No neck mass noted. CVS: Normal heart rate and rhythm. Heart sound normal. No murmurs noted. Pulses normal throughout. Respiratory: No respiratory distress. Painless inspiration. Breath sounds normal. No wheezes/rhonchi noted. Chest nontender. Bilateral basilar rales No accessory muscle usage noted or decreased air movement noted. Abdomen: Soft and nontender. Bowel sounds normal in all 4 quadrants. No distention noted. No organomegaly noted. No visible injury noted. Back: No CVA tenderness. Full range of motion noted. Skin: Skin warm and dry. Normal skin color. Normal skin turgor. No rashes/lesions/lacerations noted. Extremities: +1 pitting lower extremity edema. Extremities exhibit normal range of motion. Extremities nontender. Neuro: Oriented X 3. No motor deficit. No sensory deficit. Reflexes normal. Course Course Course Narrative: Assessment and plan. 60-year-old male with history of congestive heart failure ejection fraction of 10%, presented with exertional dyspnea. Physical exam/chest x-ray is consistent with congestive heart failure patient do not respond well to Lasix was given Bumex in the emergency department. And will admit patient. Chronic hypotension thought to be secondary to low ejection fraction. MDM - Chest Pain Lab Data Attestation: I reviewed the patient's lab results. Result diagrams: 05/28/20 17:02 05/28/20 17:02 Labs: Lab Results 05/28/20 05/28/20 05/28/20 Range/Units 17:02 17:02 17:02 WBC 8.9 (4.8-10.8) X10*3/uL RBC 6.05 H (4.60-5.80) X10*6/uL Hgb 15.8 (14.0-18.0) g/dl Hct 48.8 (42-52) % MCV 80.7 (80-98) fL MCH 26.1 L (27.0-33.0) pg MCHC 32.4 (31.0-36.0) g/dl RDW 20.8 H (11.0-16.0) % Plt Count 200 (160-400) X10*3/uL MPV 10.4 (9.4-12.4) fL Immature Gran % (Auto) 0.6 H (0.0-0.4) % Neut % (Auto) 67.1 (45-73) % Lymph % (Auto) 20.7 (20-40) % Austin % (Auto) 10.6 (2-11) % Eos % (Auto) 0.4 (0-4) % Baso % (Auto) 0.6 (0-2) % Lymph # (Auto) 1.9 (1.2-4.9) X10*3/uL Austin # (Auto) 1.0 (0.1-1.2) X10*3/uL Eos # (Auto) 0.0 (0.0-0.4) X10*3/uL Baso # (Auto) 0.1 (0.0-0.2) X10*3/uL Abs Immat Gran (auto) 0.05 H (0.00-0.03) X10*3/uL Absolute Neuts (auto) 6.0 (2.0-8.3) X10*3/uL Absolute Nucleated RBC 0.000 (0.0-0.012) X10*3/uL Nucleated RBC % (auto) 0.0 (0.0-0.2) /100WBC PT 38.7 H D (10.8-13.0) SEC INR 3.2 H (0.9-1.1) APTT 35.4 (24.1-38.0) SEC Hold Blue Top SEE NOTE Sodium 133 L (135-145) mmol/L Potassium 3.9 D (3.3-5.1) mmol/L Chloride 89 L (96-108) mmol/L Carbon Dioxide 32 H (22-29) mmol/L Anion Gap 16 (12-20) BUN 33 H D (9-16) mg/dL Creatinine 1.43 H (0.5-1.4) mg/dL Estim Creat Clear Calc 75.2 Estimated GFR 51 Random Glucose 129 H D (60-115) mg/dL Calcium 9.4 (8.4-10.2) mg/dL Troponin I High Sens (<3.5-35.0) ng/L B-Natriuretic Peptide (<100) pg/mL 05/28/20 Range/Units 17:02 WBC (4.8-10.8) X10*3/uL RBC (4.60-5.80) X10*6/uL Hgb (14.0-18.0) g/dl Hct (42-52) % MCV (80-98) fL MCH (27.0-33.0) pg MCHC (31.0-36.0) g/dl RDW (11.0-16.0) % Plt Count (160-400) X10*3/uL MPV (9.4-12.4) fL Immature Gran % (Auto) (0.0-0.4) % Neut % (Auto) (45-73) % Lymph % (Auto) (20-40) % Austin % (Auto) (2-11) % Eos % (Auto) (0-4) % Baso % (Auto) (0-2) % Lymph # (Auto) (1.2-4.9) X10*3/uL Austin # (Auto) (0.1-1.2) X10*3/uL Eos # (Auto) (0.0-0.4) X10*3/uL Baso # (Auto) (0.0-0.2) X10*3/uL Abs Immat Gran (auto) (0.00-0.03) X10*3/uL Absolute Neuts (auto) (2.0-8.3) X10*3/uL Absolute Nucleated RBC (0.0-0.012) X10*3/uL Nucleated RBC % (auto) (0.0-0.2) /100WBC PT (10.8-13.0) SEC INR (0.9-1.1) APTT (24.1-38.0) SEC Hold Blue Top Sodium (135-145) mmol/L Potassium (3.3-5.1) mmol/L Chloride (96-108) mmol/L Carbon Dioxide (22-29) mmol/L Anion Gap (12-20) BUN (9-16) mg/dL Creatinine (0.5-1.4) mg/dL Estim Creat Clear Calc Estimated GFR Random Glucose (60-115) mg/dL Calcium (8.4-10.2) mg/dL Troponin I High Sens 21.2 D (<3.5-35.0) ng/L B-Natriuretic Peptide 1854 H (<100) pg/mL Imaging Data Chest x-ray: Radiologist's impression: Moderate cardiomegaly. No acute process seen.. Discharge Plan Discharge Clinical Impression: CHF (congestive heart failure), CHF exacerbation Patient Disposition: Admitted As Inpatient
[2020-05-28 17:08] LABS: MANUAL DIFF FLAG NO
[2020-05-28 17:09] LABS: Basophils Absolute Auto 0.1 X10*3/uL (0.0-0.2); Basophils Percent Auto 0.6 % (0-2); Eosinophils Percent Auto 0.4 % (0-4); Hematocrit 48.8 % (42-52); Hemoglobin 15.8 g/dl (14.0-18.0); Imm Gran Abs Auto 0.05 X10*3/uL (0.00-0.03); Imm Gran Pct Auto 0.6 % (0.0-0.4); Lymphocytes Absolute Auto 1.9 X10*3/uL (1.2-4.9); Lymphocytes Percent Auto 20.7 % (20-40); Mean Corpuscular HGB Conc 32.4 g/dl (31.0-36.0); Mean Corpuscular Hemoglobin 26.1 pg (27.0-33.0); Mean Corpuscular Volume 80.7 fL (80-98); Mean Platelet Volume 10.4 fL (9.4-12.4); Monocytes Percent Auto 10.6 % (2-11); Neutrophils Percent Auto 67.1 % (45-73); Platelet Count 200 X10*3/uL (160-400); Red Blood Count 6.05 X10*6/uL (4.60-5.80); Red Cell Distribution Width 20.8 % (11.0-16.0); White Blood Count 8.9 X10*3/uL (4.8-10.8)
[2020-05-28 17:28] LABS: Anion Gap 16 (12-20); Blood Urea Nitrogen 33 mg/dL (9-16); Calcium 9.4 mg/dL (8.4-10.2); Carbon Dioxide 32 mmol/L (22-29); Chloride 89 mmol/L (96-108); Creatinine Clr Calc Pharmacy 75.2; Estimated Glomerular Filt Rate 51; Glucose Random 129 mg/dL (60-115); INTERNATIONAL NORM RATIO 3.2 (0.9-1.1); Potassium 3.9 mmol/L (3.3-5.1); Prothrombin Time 38.7 SEC (10.8-13.0); Sodium 133 mmol/L (135-145)
[2020-05-28 17:31] LABS: Partial Thromboplastin Time 35.4 SEC (24.1-38.0)
[2020-05-28 17:39] LABS: Troponin-I High Sensitivity 21.2 ng/L (<3.5-35.0)
[2020-05-28 17:44] LABS: B Type Natriuretic Peptide 1854 pg/mL (<100)
--- NOTE | 2020-05-28 19:19 | PC.NURSE ---
vitals updated with dr carson and ok to give the bumex.
[2020-05-28] MEDS: Bumetanide 1 MG/4 ML VIAL IVPUSH (19:21)
--- NOTE | 2020-05-28 20:53 | P.HPHOSP_ITS ---
History of Present Illness Date of Service: 05/28/20 Chief Complaint: SOB Male with past medical history of CHF with ejection fraction less than 10%, AFib on Eliquis, cardiomyopathy, who presents the hospital shortness of breath, orthopnea, PND. And lower extremity edema. Patient reports that his symptoms started about 3 days ago, worsening, associated with chest tightness, chronic palpitations with no changes, no nausea vomiting, no abdominal pain, no diarrhea constipation. Patient has a temp of 97.6?, heart rate of 105, respiratory rate of 24, blood pressure of 86/59 reports this is normal for him and that he usually runs low Labs are significant for WBC count of 8.6, hemoglobin of 14.6, PT of 30.7, INR 3.1, sodium of 133, potassium of 3.9, BUN of 33, creatinine of 1.43, BNP of 18 54, troponin of 21.2 and 17.9 on repeat Chest x-ray shows moderate cardiomegaly with no acute process Review of Systems Review of Systems: Yes all other systems are reviewed and are negative FORMERLY [facility], [facility]1983 Medical History Atrial fibrillation and flutter Cardiomyopathy CHF (congestive heart failure) Derangement of left shoulder joint Derangement of right shoulder joint Failed back syndrome, cervical Failed back syndrome, lumbar History of cardioversion Left rib fracture Lumbar spondylosis Lumbar spondylosis Persistent atrial fibrillation Family History Father No problems noted. Mother No problems noted. Daughter Breast cancer Surgical History H/O elbow surgery H/O knee surgery History of arteriography History of shoulder surgery History of spinal surgery Social History Household Members: None Housing: Apartment Do you presently have visiting nurse or other home services: No Alcohol intake: never Smoking Status: Former smoker Tobacco Type: Cigarette Cigarettes Per Day: 10 Second Hand Smoke Exposure: No Use of substances other than those prescribed or required for medical reasons: No Have you been hit, kicked, punched, or otherwise hurt by someone within the past year? If so, by whom?: No Do you feel safe in your current relationship?: No Current Relationship Spiritual Healthcare Practices: None Sabianist Healthcare Practices: None Cultural Healthcare Practices: None Advance Directives: No Advance Directives Information Provided: Yes Do you have thoughts of harming others: None Do you have a plan to hurt others: No Plan Recently lost weight without trying: No service: Yes Current occupational status: unemployed Meds Allergies Allergy/AdvReac Type Severity Reaction Status Date / Time zolpidem [Ambien] AdvReac Intermediate sleep Verified 05/08/20 16:25 walking Active Medications: Current Medications Generic Name Dose Route Start Last Admin Trade Name Freq PRN Reason Stop Dose Admin Oxycodone HCl 5 mg 05/28/20 20:27 Oxycodone Hcl Immed Release 5 Mg Tablet PO Q6H PRN Pain, Severe (Pain Scale 7-10) Home Medications Medication Instructions Recorded Confirmed Last Taken Type Entresto 1 tab PO BID 03/28/20 05/29/20 05/28/20 08:00 History torsemide 40 mg PO BID 05/28/20 05/29/20 05/28/20 09:00 History alprazolam 1 mg PO BEDTIME 05/29/20 05/29/20 05/28/20 History Physical Exam Vital Signs and Narrative: Vital Signs: Last Vital Signs Temp 97.6 F 05/28/20 15:40 Pulse 82 05/28/20 19:20 Resp 20 05/28/20 19:11 BP 92/62 05/28/20 19:26 Pulse Ox 99 05/28/20 19:20 Body Mass Index 29.2 Const: General: cooperative and no acute distress Orientation/consciousness: patient oriented x3 Eyes: General: appearance normal, both eyes and all related structures Resp: Effort & Inspection: normal respiratory effort and able to speak in complete sentences Cardio: Rate: regular rate Rhythm: regular rhythm GI: Palpation (GI): Soft to palpation Auscultation: normal bowel sounds Skin: General skin exam: no rashes or lesions noted Neuro: General: patient oriented x3 Cognition (Neuro): normal cognition Extrem: General: Yes normal to inspection and Yes no pedal edema Results Labs CBC and Chem 7: 05/29/20 04:43 05/29/20 04:43 Labs: Laboratory Results - last 24 hr 05/28/20 05/28/20 05/28/20 17:02 17:02 17:02 MCV 80.7 MCH 26.1 L MCHC 32.4 RDW 20.8 H Plt Count 200 MPV 10.4 Immature Gran % (Auto) 0.6 H Neut % (Auto) 67.1 Lymph % (Auto) 20.7 Richardson % (Auto) 10.6 Eos % (Auto) 0.4 Baso % (Auto) 0.6 Lymph # (Auto) 1.9 Richardson # (Auto) 1.0 Eos # (Auto) 0.0 Baso # (Auto) 0.1 Abs Immat Gran (auto) 0.05 H Absolute Neuts (auto) 6.0 Absolute Nucleated RBC 0.000 Nucleated RBC % (auto) 0.0 PT 38.7 H D INR 3.2 H APTT 35.4 Hold Blue Top SEE NOTE Anion Gap 16 Estim Creat Clear Calc 75.2 Estimated GFR 51 Random Glucose 129 H D Calcium 9.4 Troponin I High Sens B-Natriuretic Peptide 05/28/20 17:02 MCV MCH MCHC RDW Plt Count MPV Immature Gran % (Auto) Neut % (Auto) Lymph % (Auto) Richardson % (Auto) Eos % (Auto) Baso % (Auto) Lymph # (Auto) Richardson # (Auto) Eos # (Auto) Baso # (Auto) Abs Immat Gran (auto) Absolute Neuts (auto) Absolute Nucleated RBC Nucleated RBC % (auto) PT INR APTT Hold Blue Top Anion Gap Estim Creat Clear Calc Estimated GFR Random Glucose Calcium Troponin I High Sens 21.2 D B-Natriuretic Peptide 1854 H Imaging Radiologist's Impressions: Impressions Chest X-Ray 05/28/20 16:26 IMPRESSION: Moderate cardiomegaly. No acute process seen.. Assessment and Plan (1) CHF exacerbation: Status: Acute (2) Neuropathy: Status: Acute (3) Supratherapeutic INR: Status: Acute This is a 60-year-old male with past medical history of CHF with ejection fraction less than 10% presents to the hospital with orthopnea, PND, shortness of breath # acute CHF exacerbation - last echo done in in March of this year shows ejection fraction of less than 10% - patient reports compliance with his torsemide - elevated BNP, no reported pulmonary congestion on chest x-ray - at this time will start him on Lasix IV b.i.d., strict I&O, low-sodium diet, daily weight - hold off on echocardiogram as he had a recent 1 done in March - cardiology consult # neuropathy - reports chronic neuropathy as a result of his back and neck surgeries - reports pain control with oxycodone does discontinued by his PCP last week - will continue oxycodone while inpatient # AFib - continue Eliquis and carvedilol - has supratherapeutic INR of 3.1 - monitor for actively DVT prophylaxis: Eliquis
[2020-05-28 22:02] LABS: Troponin-I High Sensitivity 17.9 ng/L (<3.5-35.0)
[2020-05-28 22:10] LABS: COVID-19 Test Negative (Negative); IDNOW Serial# 9DD0AD1C
--- NOTE | 2020-05-28 22:12 | MHC.CM.PN ---
Addendum entered by Joann Harris 05/28/20 22:20: O2 sats 98-99% on room air. Original Note: CM met with pt. Pending admission, 999 status. IMM reviewed and signed per protocol. Pt sitting on edge of bed, speaking in sentences. C/O being here too long when CM told pt we were waiting for a room for him. Pt not very engaged in conversation. Lives alone, uses a cane, states has people who can care for him . Denies drugs or ETOH. Has chronic pain and is taking opiates and methadone per pt. Per record review, pt was suspended from opiate program for non-compliance for 3 months. Pt complaining that doctor has cut down is pain medication. Pt hx of being in [employer], but is not vet connected. Has [place] Medicare Part A[place]. Pt states he may need oxygen at home, but does not use it now. Pt may benefit from Resp evaluation prior to discharge. Pt is not on oxygen presently. HCP/daughter, Bushra Amaya ([phone]). D/C plan is home without services. Transportation to be arranged by pt. CM to follow for d/c needs.
--- NOTE | 2020-05-28 23:22 | PC.NURSE ---
pt has been rounded on at least every hour. pt suffers from chronic back pain and the hospital stretcher is discomforting for the pt. pt has been sitting in a chair for comfort. pt has been informed on the steps that it takes to get a pt admitted and then a room. pt has been informed at least every hour on each round to the room. pt is talking on his phone at this time. rn on [facility] [place], [place] has been made aware of the need to give report.
[2020-05-28] MEDS: oxyCODONE HCl Immed Release 5 MG TABLET PO (23:28)
[2020-05-29] VITALS (7 sets, daily range): BP systolic 82–92; BP diastolic 46–78; PULSE 80–106; RESP 16–22; TEMP 36.2–36.9; O2SAT 96–100; BMI 27.6
[2020-05-29] MEDS: 0.9 % Sodium Chloride Flush 3 ML SYRINGE IVFLUSH ×2 (00:18→07:57)
[2020-05-29] MEDS: ALPRAZolam 0.5 MG TABLET 1 MG PO (01:11)
[2020-05-29 04:54] LABS: MANUAL DIFF FLAG NO
[2020-05-29 04:57] LABS: Basophils Absolute Auto 0.1 X10*3/uL (0.0-0.2); Basophils Percent Auto 0.8 % (0-2); Eosinophils Absolute Auto 0.1 X10*3/uL (0.0-0.4); Eosinophils Percent Auto 0.6 % (0-4); Hematocrit 44.6 % (42-52); Hemoglobin 14.6 g/dl (14.0-18.0); Imm Gran Abs Auto 0.05 X10*3/uL (0.00-0.03); Imm Gran Pct Auto 0.6 % (0.0-0.4); Lymphocytes Absolute Auto 2.4 X10*3/uL (1.2-4.9); Lymphocytes Percent Auto 27.8 % (20-40); Mean Corpuscular HGB Conc 32.7 g/dl (31.0-36.0); Mean Corpuscular Hemoglobin 25.8 pg (27.0-33.0); Mean Corpuscular Volume 78.9 fL (80-98); Mean Platelet Volume 10.8 fL (9.4-12.4); Monocytes Percent Auto 11.3 % (2-11); Neutrophils Absolute Auto 5.1 X10*3/uL (2.0-8.3); Neutrophils Percent Auto 58.9 % (45-73); Platelet Count 185 X10*3/uL (160-400); Red Blood Count 5.65 X10*6/uL (4.60-5.80); Red Cell Distribution Width 20.4 % (11.0-16.0); White Blood Count 8.6 X10*3/uL (4.8-10.8)
[2020-05-29] MEDS: oxyCODONE HCl Immed Release 5 MG TABLET PO (05:06)
[2020-05-29 05:21] LABS: Anion Gap 16 (12-20); Blood Urea Nitrogen 36 mg/dL (9-16); Calcium 8.6 mg/dL (8.4-10.2); Carbon Dioxide 27 mmol/L (22-29); Chloride 93 mmol/L (96-108); Creatinine Clr Calc Pharmacy 88.9; Estimated Glomerular Filt Rate > 60; Glucose Random 138 mg/dL (60-115); Potassium 3.1 mmol/L (3.3-5.1); Sodium 133 mmol/L (135-145)
[2020-05-29] MEDS: Potassium Chloride Packet 20 MEQ PACKET 40 MEQ PO ×2 (07:57→11:15)
[2020-05-29] MEDS: Apixaban 5 MG TABLET PO (07:57)
--- NOTE | 2020-05-29 10:31 | PM.CNCAR ---
History of Present Illness History of Present Illness Date of Service: 05/29/20 Requesting physician: Watson Oteor Consult reason: congestive heart failure Chief complaint: CHF excerbation Narrative: We were asked to see David in cardiology consultation today due to decompensated congestive heart failure. He is a 60-year-old man with advanced congestive heart failure with severe cardiomyopathy with LV ejection fraction of less than 10% was in the past referred to [facility] for placement of left ventricular assist device, however given patient's noncompliance and poor understanding of his disease process he did not get left ventricular assist device. He was then discharged home on torsemide. He says he has been taking his torsemide regularly and despite that after 20-23 days he says that torsemide stops working. He then up this torsemide without good response and then he comes to the hospital with progressive shortness of breath, orthopnea, leg edema. Noted to be in decompensated congestive heart failure by elevated BNP as well as elevated fluid status. Today patient noted to have low blood pressure. He says he is not feeling well. He appears drowsy. He also complains of shortness of breath. Continues to have leg edema. Overnight has diuresed about 900 cc. Patient did get his carvedilol and Entresto this morning Review of Systems Constitutional: Constitutional: Reports fatigue, Reports lethargy, Reports malaise and Reports weight gain Cardiovascular: Cardiovascular: Reports Abdominal Distension, Denies chest pain, Reports leg edema, Denies palpitations, Reports dyspnea on exertion and Reports orthopnea Respiratory: Respiratory: Denies cough and Reports dyspnea on exertion Gastrointestinal: Gastrointestinal: Reports no additional gastrointestinal complaints Genitourinary: Genitourinary: Reports no additional male genitourinary complaints Musculoskeletal: Musculoskeletal: Reports no additional musculoskeletal complaints Neurologic: Reports system reviewed and no additional complaints, except as documented Psychiatric: Psychiatric: Reports no additional psychiatric complaints Endocrine: Endocrine: Reports no additional endocrine complaints, Reports fatigue and Denies palpitations Hematologic/Lymphatic: Hematologic/Lymphatic: Reports no additional hematologic/lymphatic complaints Allergic/Immunologic: Allergic/Immunologic: Reports no additional allergic/immunologic complaints [facility] Past Medical History Medical History Atrial fibrillation and flutter Cardiomyopathy CHF (congestive heart failure) Derangement of left shoulder joint Derangement of right shoulder joint Failed back syndrome, cervical Failed back syndrome, lumbar History of cardioversion Left rib fracture Lumbar spondylosis Lumbar spondylosis Persistent atrial fibrillation Family History Family History Father No problems noted. Mother No problems noted. Daughter Breast cancer Surgical History Surgical History H/O elbow surgery H/O knee surgery History of arteriography History of shoulder surgery History of spinal surgery Social History Social History Household Members: None Housing: Apartment Do you presently have visiting nurse or other home services: No Alcohol intake: never Smoking Status: Former smoker Tobacco Type: Cigarette Cigarettes Per Day: 10 Second Hand Smoke Exposure: No Use of substances other than those prescribed or required for medical reasons: No Currently Displaying Signs/Symptoms of Drug Intoxication Withdrawal: No Have you been hit, kicked, punched, or otherwise hurt by someone within the past year? If so, by whom?: No Do you feel safe in your current relationship?: No Current Relationship Spiritual Healthcare Practices: None Denominational Healthcare Practices: None Cultural Healthcare Practices: None Advance Directives: No Advance Directives Information Provided: Yes Do you have thoughts of harming others: None Do you have a plan to hurt others: No Plan Recently lost weight without trying: No service: Yes Current occupational status: unemployed Meds Allergies Allergy/AdvReac Type Severity Reaction Status Date / Time zolpidem [Ambien] AdvReac Intermediate sleep Verified 05/08/20 16:25 walking Active Medications: Current Medications Generic Name Dose Route Start Last Admin Trade Name Nikki PRN Reason Stop Dose Admin Acetaminophen 650 mg 05/28/20 23:41 Acetaminophen 325 Mg Tablet PO Q6H PRN Pain, Mild (Pain Scale 1-3) Alprazolam 1 mg 05/29/20 01:00 05/29/20 01:11 Alprazolam 0.5 Mg Tablet PO 1 mg BEDTIME [facility] Administration Apixaban 5 mg 05/29/20 09:00 05/29/20 07:57 Apixaban 5 Mg Tablet PO 5 mg BID [facility] Administration Carvedilol 6.25 mg 05/29/20 09:00 05/29/20 09:08 Carvedilol 6.25 Mg Tablet PO Not Given BID [facility] Protocol Docusate Sodium 100 mg 05/28/20 23:41 Docusate Sodium 100 Mg Capsule PO DAILY PRN Constipation Furosemide 40 mg 05/29/20 08:00 05/29/20 09:08 Furosemide 20 Mg/2 Ml Vial IVPUSH Not Given BID@0800,1700 [facility] Protocol Gabapentin 1,600 mg 05/29/20 09:00 Gabapentin 400 Mg Capsule PO BID [facility] Non-Formulary Medication 1 mg 05/29/20 09:00 Varenicline [Chantix Continuing Month Box] PO BID [facility] Ondansetron HCl 4 mg 05/28/20 23:41 Ondansetron Hcl 4 Mg/2 Ml Vial IVPUSH Q8H PRN Nausea and Vomiting Oxycodone HCl 5 mg 05/28/20 20:27 05/29/20 05:06 Oxycodone Hcl Immed Release 5 Mg Tablet PO 5 mg Q6H PRN Administration Pain, Severe (Pain Scale 7-10) Polyethylene Glycol 17 gm 05/29/20 09:00 05/29/20 09:09 Polyethylene Glycol 3350 17 Gm Powd.Pack PO Not Given DAILY [facility] Potassium Chloride 40 meq 05/29/20 06:45 05/29/20 07:57 Potassium Chloride Packet 20 Meq Packet PO 05/29/20 10:46 40 meq Q4H [facility] Administration Sacubitril/Valsartan 1 tab 05/29/20 09:00 05/29/20 09:10 Sacubitril/Valsartan 24 1 Tab Tablet PO Not Given BID [facility] Protocol Sodium Chloride 3 ml 05/29/20 00:00 05/29/20 07:57 0.9 % Sodium Chloride Flush 3 Ml Syringe IVFLUSH 3 ml QSHIFT [facility] Administration Home Medications Medication Instructions Recorded Confirmed Last Taken Type Entresto 1 tab PO BID 03/28/20 05/29/20 05/28/20 08:00 History torsemide 40 mg PO BID 05/28/20 05/29/20 05/28/20 09:00 History alprazolam 1 mg PO BEDTIME 05/29/20 05/29/20 05/28/20 History Physical Exam Vital Signs: Vital Signs: Last Vital Signs Temp 97.7 F 05/29/20 07:35 Pulse 80 05/29/20 09:11 Resp 16 05/29/20 07:35 BP 82/66 L 05/29/20 09:11 Pulse Ox 100 05/29/20 09:11 Body Mass Index 27.6 Const: General: cooperative, acute distress mild and respiratory, lethargic and tired appearing Nutritional Appearance: obese Orientation/consciousness: patient oriented x3 and lethargic HENMT: Head: Yes normocephalic and Yes atraumatic Neck: Neck: Yes trachea midline, Yes supple and Yes JVD Resp: Effort & Inspection: normal respiratory effort Auscultation: no rales and diminished lung sounds Cardio: Palpation: abnormal PMI displaced PMI Rhythm: abnormal rhythm irregularly irregular Heart sounds: S1 normal heart sound present and S2 normal heart sound present GI: Inspection: Yes distended Auscultation: normal bowel sounds Skin: General skin exam: no rashes or lesions noted Neuro: General: patient oriented x3 Extrem: General: Yes edema Psych: Appearance: grossly normal Results Labs and Meds Result diagrams: 05/29/20 04:43 05/29/20 04:43 Lab results: Laboratory Results - last 24 hr 05/28/20 05/28/20 05/28/20 17:02 17:02 17:02 WBC 8.9 RBC 6.05 H Hgb 15.8 Hct 48.8 MCV 80.7 MCH 26.1 L MCHC 32.4 RDW 20.8 H Plt Count 200 MPV 10.4 Immature Gran % (Auto) 0.6 H Neut % (Auto) 67.1 Lymph % (Auto) 20.7 [place] % (Auto) 10.6 Eos % (Auto) 0.4 Baso % (Auto) 0.6 Lymph # (Auto) 1.9 [place] # (Auto) 1.0 Eos # (Auto) 0.0 Baso # (Auto) 0.1 Abs Immat Gran (auto) 0.05 H Absolute Neuts (auto) 6.0 Absolute Nucleated RBC 0.000 Nucleated RBC % (auto) 0.0 PT 38.7 H D INR 3.2 H APTT 35.4 Hold Blue Top SEE NOTE Sodium 133 L Potassium 3.9 D Chloride 89 L Carbon Dioxide 32 H Anion Gap 16 BUN 33 H D Creatinine 1.43 H Estim Creat Clear Calc 75.2 Estimated GFR 51 Random Glucose 129 H D Calcium 9.4 Troponin I High Sens B-Natriuretic Peptide COVID-19 ([facility]NU) COVID-19 Clin Com 05/28/20 05/28/20 05/28/20 17:02 21:24 21:45 WBC RBC Hgb Hct MCV MCH MCHC RDW Plt Count MPV Immature Gran % (Auto) Neut % (Auto) Lymph % (Auto) [place] % (Auto) Eos % (Auto) Baso % (Auto) Lymph # (Auto) [place] # (Auto) Eos # (Auto) Baso # (Auto) Abs Immat Gran (auto) Absolute Neuts (auto) Absolute Nucleated RBC Nucleated RBC % (auto) PT INR APTT Hold Blue Top Sodium Potassium Chloride Carbon Dioxide Anion Gap BUN Creatinine Estim Creat Clear Calc Estimated GFR Random Glucose Calcium Troponin I High Sens 21.2 D 17.9 B-Natriuretic Peptide 1854 H COVID-19 (VISHNU) Negative COVID-19 Clin Com See Note 05/29/20 05/29/20 04:43 04:43 WBC 8.6 RBC 5.65 Hgb 14.6 Hct 44.6 MCV 78.9 L MCH 25.8 L MCHC 32.7 RDW 20.4 H Plt Count 185 MPV 10.8 Immature Gran % (Auto) 0.6 H Neut % (Auto) 58.9 Lymph % (Auto) 27.8 [place] % (Auto) 11.3 H Eos % (Auto) 0.6 Baso % (Auto) 0.8 Lymph # (Auto) 2.4 [place] # (Auto) 1.0 Eos # (Auto) 0.1 Baso # (Auto) 0.1 Abs Immat Gran (auto) 0.05 H Absolute Neuts (auto) 5.1 Absolute Nucleated RBC 0.000 Nucleated RBC % (auto) 0.0 PT INR APTT Hold Blue Top Sodium 133 L Potassium 3.1 L D Chloride 93 L Carbon Dioxide 27 Anion Gap 16 BUN 36 H Creatinine 1.21 Estim Creat Clear Calc 88.9 Estimated GFR > 60 Random Glucose 138 H Calcium 8.6 D Troponin I High Sens B-Natriuretic Peptide COVID-19 ([facility]NU) COVID-19 Clin Com Imaging Radiologist's impression: Impressions Chest X-Ray 05/28/20 16:26 IMPRESSION: Moderate cardiomegaly. No acute process seen.. Assessment and Plan (1) Acute on chronic systolic (congestive) heart failure: Status: Acute Patient presents with progressive symptoms of heart failure and not having hypertension with poor mental status suggestive of advanced heart failure with poor cardiac output as well as congestion. He requires more intensive care and I inotropic support. Discussed with Dr. Sanford to transfer him to intensive care unit. Was started on dobutamine drip at 2.5 micrograms/kg per minute and also start him on Bumex drip. Hold off on his neurohormonal modulation which is not tolerating. Had a very detailed discussion with the patient, has lack of understanding probably currently in advanced heart failure and is not understanding his disease process he thinks the defibrillator will help his heart failure syndrome. Discussed with him that this is not the case. He seems a little frustrated. He would benefit from rhythm management, however he has failed this in the past and has not been compliant with follow-up. Given persistent atrial fibrillation with significant left atrial enlargement, not sure that he will maintain rhythm without amiodarone support. He needs close monitoring in the intensive care unit, will follow with him. If his clinical status worsens will need transfer to [facility].
--- NOTE | 2020-05-29 10:47 | PC.NURSE ---
pt's bp low 82/66 p80 o2 sat 99% room air. c/o intermittent chest pressure with sob. c/o extreme weakness. He has been evaluated by Dr abarca and Dr snowden possible trans to icu.
--- NOTE | 2020-05-29 11:59 | P.CDIC_ITS ---
CDI Concurrent Query Service Date: 05/29/20 Documentation Clarification: Please clarify if you are treating a proba ble/suspected/likely or confirmed: Acute on chronic systolic and/or diastolic CHF Chronic systolic and/or diastolic CHF Please specify if known Provider Response: Other Other Diagnosis: see note PLEASE DO NOT DELETE/MODIFY EXISTING CONTENT Additional information is needed in order to code to the highest accuracy and appropriate Severity of Illness (SOI). Please clarify the information noted below in your progress notes and discharge summary. Risk Factors/Clinical Indicators/Treatments PMH CHF BNP 1854 IV lasix History of CHF w low EF 10% Home med: Torsemide 40 mg BID hold off on echo recent one in March CDS: Dee Dee Duffy CCS, CDIS Contact Number: [phone] Please Review the information above and exercise your independent professional judgment in responding to the query. If you concur, pleas document in the PROGRESS NOTES and DISCHARGE SUMMARY. If you do not agree with the query, please document in the query above. THIS QUERY IS PART OF THE PERMANENT MEDICAL RECORD
--- NOTE | 2020-05-29 12:54 | P.DS_ITS ---
DS: Providers Provider Date of Service: 06/01/20 Date of admission: 05/28/20 20:27 Primary care physician: Jorge Vee PA-C Consults: 05/28/20 23:41 Consult to Cardiology Routine Consulting Provider: Felice Paez Reason for consultation: CHF Has provider been notified: No DS: Diagnosis Discharge Diagnosis (1) Acute on chronic systolic (congestive) heart failure: Status: Acute DS: Medications Discharge Medications Home Medications: Home Medications Medication Instructions Recorded Confirmed alprazolam 1 mg PO BEDTIME 05/29/20 05/29/20 Previous Rx's Medication Instructions Recorded gabapentin 800 mg tablet 1,600 mg PO BID #270 tab 12/19/19 oxycodone 10 mg tablet 10 mg PO Q6H PRN 30 Days #120 tab 05/08/20 apixaban 5 mg tablet 5 mg PO BID #60 tab 05/13/20 DS: Summary Hospital Course Hospital Course: History of presenting illness 60 yr old Male with past medical history of CHF with ejection fraction less than 10%, AFib on Eliquis, cardiomyopathy,presents to the hospital with shortness of breath, orthopnea, PND, and lower extremity edema. Patient reports that his symptoms started got worsened about 3 days ago, associated with chest tightness, chronic palpitations with no changes, no nausea vomiting, no abdominal pain, no diarrhea constipation. Patient has a temp of 97.6?, heart rate of 105, respiratory rate of 24, blood pressure of 86/59 reports this is normal for him and that he usually runs low Labs are significant for WBC count of 8.6, hemoglobin of 14.6, PT of 30.7, INR 3.1, sodium of 133, potassium of 3.9, BUN of 33, creatinine of 1.43, BNP of 18 54, troponin of 21.2 and 17.9 on repeat Chest x-ray shows moderate cardiomegaly with no acute process Past medical history Atrial fibrillation and flutter Cardiomyopathy CHF (congestive heart failure) Derangement of left shoulder joint Derangement of right shoulder joint Failed back syndrome, cervical Failed back syndrome, lumbar History of cardioversion Left rib fracture Lumbar spondylosis Lumbar spondylosis Persistent atrial fibrillation Hospital course Acute on chronic systolic congestive heart failure. 60-year-old male with past medical history of CHF with ejection fraction less than 10% presents to the hospital with orthopnea, PND, shortness of breath, as per Cardiology he was referred to [facility] for placement of left ventricular assisted device however due to poor understanding and noncompliance he did not get the procedure done, as per patient he has been using his torsemide regularly initially it worked but in last several days he has noticed decreased urinary output, with progressive shortness of breath, orthopnea and leg edema patient currently appears to be in decompensated congestive heart failure with elevated BNP and hypervolemia since he is not feeling well appears drowsy with persistent shortness of breath and only 900 cc of urinary output since admission despite being on IV Lasix case discussed with Cardiology they recommend patient to be discharged to [facility] for IV dobutamine and IV Bumex will hold Coreg and Entresto. # neuropathy patient has history of chronic neuropathy as a result of back and neck surgeries will continue oxycodone and gabapentin # AFib patient will be continued on Eliquis is INR is 3.1 will hold Coreg, needs to be evaluated by Cardiology for use of amiodarone Time Spent with Patient Time attestation: Total time spent providing and/or coordinating discharge services: Discharge coordination time: Greater than 30 minutes Physical Exam Vital Signs: Vital Signs: Last Vital Signs Temp 97.1 F 05/29/20 11:43 Pulse 82 05/29/20 11:43 Resp 16 05/29/20 11:43 BP 86/70 L 05/29/20 11:43 Pulse Ox 97 05/29/20 11:43 Body Mass Index 27.6 General patient appears tired, frustrated and lethargic Neck posive JVD. CVS irregular rate rhythm, Respiratory clear to auscultation no use of accessory muscles, no respiratory distress, no wheeze, no rhonchi. Gastrointestinal abdomen soft, nontender, bowel sounds audible, no guarding , no rigidity. Extremities bilateral edema. Neuro nonfocal , speech clear. Psych appropriate affect, depressed Skin no rash DS: Data Data Completed and Pending Labs on day of discharge: Laboratory Results - last 24 hr 05/28/20 05/28/20 05/28/20 17:02 17:02 17:02 WBC 8.9 RBC 6.05 H Hgb 15.8 Hct 48.8 MCV 80.7 MCH 26.1 L MCHC 32.4 RDW 20.8 H Plt Count 200 MPV 10.4 Immature Gran % (Auto) 0.6 H Neut % (Auto) 67.1 Lymph % (Auto) 20.7 [place] % (Auto) 10.6 Eos % (Auto) 0.4 Baso % (Auto) 0.6 Lymph # (Auto) 1.9 [place] # (Auto) 1.0 Eos # (Auto) 0.0 Baso # (Auto) 0.1 Abs Immat Gran (auto) 0.05 H Absolute Neuts (auto) 6.0 Absolute Nucleated RBC 0.000 Nucleated RBC % (auto) 0.0 PT 38.7 H D INR 3.2 H APTT 35.4 Hold Blue Top SEE NOTE Sodium 133 L Potassium 3.9 D Chloride 89 L Carbon Dioxide 32 H Anion Gap 16 BUN 33 H D Creatinine 1.43 H Estim Creat Clear Calc 75.2 Estimated GFR 51 Random Glucose 129 H D Calcium 9.4 Troponin I High Sens B-Natriuretic Peptide COVID-19 ([facility]) COVID-19 Tracsis 05/28/20 05/28/20 05/28/20 17:02 21:24 21:45 WBC RBC Hgb Hct MCV MCH MCHC RDW Plt Count MPV Immature Gran % (Auto) Neut % (Auto) Lymph % (Auto) [place] % (Auto) Eos % (Auto) Baso % (Auto) Lymph # (Auto) [place] # (Auto) Eos # (Auto) Baso # (Auto) Abs Immat Gran (auto) Absolute Neuts (auto) Absolute Nucleated RBC Nucleated RBC % (auto) PT INR APTT Hold Blue Top Sodium Potassium Chloride Carbon Dioxide Anion Gap BUN Creatinine Estim Creat Clear Calc Estimated GFR Random Glucose Calcium Troponin I High Sens 21.2 D 17.9 B-Natriuretic Peptide 1854 H COVID-19 ([facility]) Negative COVID-19 Clin Com See Note 05/29/20 05/29/20 04:43 04:43 WBC 8.6 RBC 5.65 Hgb 14.6 Hct 44.6 MCV 78.9 L MCH 25.8 L MCHC 32.7 RDW 20.4 H Plt Count 185 MPV 10.8 Immature Gran % (Auto) 0.6 H Neut % (Auto) 58.9 Lymph % (Auto) 27.8 [place] % (Auto) 11.3 H Eos % (Auto) 0.6 Baso % (Auto) 0.8 Lymph # (Auto) 2.4 [place] # (Auto) 1.0 Eos # (Auto) 0.1 Baso # (Auto) 0.1 Abs Immat Gran (auto) 0.05 H Absolute Neuts (auto) 5.1 Absolute Nucleated RBC 0.000 Nucleated RBC % (auto) 0.0 PT INR APTT Hold Blue Top Sodium 133 L Potassium 3.1 L D Chloride 93 L Carbon Dioxide 27 Anion Gap 16 BUN 36 H Creatinine 1.21 Estim Creat Clear Calc 88.9 Estimated GFR > 60 Random Glucose 138 H Calcium 8.6 D Troponin I High Sens B-Natriuretic Peptide COVID-19 ([facility]) COVID-19 Clin Com Discharge Plan Discharge Patient Disposition: Xfer [facility] Referrals: Jorge Vee PA-C [Primary Care Provider] - Discharge Medications: Continued apixaban [Eliquis] 5 mg tablet 5 mg PO BID Qty: 60 RF: 4 oxycodone 10 mg tablet 10 mg PO Q6H PRN (Reason: pain) 30 Days Qty: 120 RF: 0 Discontinued doxycycline hyclate 100 mg capsule 100 mg PO DAILY 30 Days Qty: 30 RF: 0 carvedilol 6.25 mg tablet 6.25 mg PO BID 90 Days Qty: 180 RF: 1 Chantix Continuing Month Box 1 mg tablet 1 mg PO BID 28 Days Qty: 56 RF: 2 Entresto 24-26 mg tablet 1 tab PO BID RF: 0 torsemide 20 mg tablet 40 mg PO BID RF: 0 No Action alprazolam 1 mg tablet 1 mg PO BEDTIME Qty: 30 RF: 0 gabapentin 800 mg tablet 1,600 mg PO BID Qty: 270 RF: 8 Discharge Orders: Discharge Order (Routine); Ordered 05/29/20 Ordered By: Watson Otero Diet: low fat, low cholesterol and low salt diet Activity on Discharge: bedrest Stand Alone Forms: Patient Portal Discharge page Care Plan Goals: as above Health Concerns: acute on chronic chf/chronic atrial fibrillation Plan of Treatment: to be transferred to [facility] for IV dobutamine and IV Bumex drip, home medication Coreg and Entresto has been held. Assessment: As per discharge plan Discharge Date/Time: 05/29/20 14:32
--- NOTE | 2020-05-29 13:20 | MHC.CM.PN ---
Patient will be transferred to [facility] today via BLS transport.
== END 2020-05-29 14:32 | disposition short-term general hospital (02) | DRG 293 ==
LOC: HO.ED 18:21 → HO.EDOVER 20:36 → HO.IMC 22:15
PROVIDERS: Admitting Provider Internal Medicine; Emergency Provider Emergency Medicine; PCP Physician Assistant; Visit Provider Hospitalist
DX: I50.23 Acute on chronic systolic (congestive) heart failure (principal); F17.210 Nicotine dependence, cigarettes, uncomplicated; Z71.6 Tobacco abuse counseling; I95.89 Other hypotension; Z20.822 Contact with and (suspected) exposure to COVID-19; I48.91 Unspecified atrial fibrillation; G89.4 Chronic pain syndrome; R79.1 Abnormal coagulation profile; G62.9 Polyneuropathy, unspecified; Z91.14 Patient's other noncompliance with medication regimen; Z79.01 Long term (current) use of anticoagulants; Z79.891 Long term (current) use of opiate analgesic; Z79.899 Other long term (current) drug therapy
CPT/HCPCS: 36415; 71045; 80048; 83880; 84484; 85025; 85610; 85730; 87635; 93005; 96374; 99285

== ENCOUNTER → 2020-07-23 12:46 | Outpatient (BNVA) | payer MEDICARE, SELFPAY | PROVIDERS: PCP Physician Assistant; Referring Provider Physician Assistant; Visit Provider Internal Medicine Cardiovascular Disease | DX: I42.8 Other cardiomyopathies (principal); I48.20 Chronic atrial fibrillation, unspecified; I50.9 Heart failure, unspecified | CPT/HCPCS: 93005; 99212 ==

== ENCOUNTER 2021-02-02 17:19 | Inpatient (IN) | payer MEDICARE, SELFPAY ==
--- NOTE | ~2021-02-02 | CT_ITS ---
EXAMINATION: CT CHEST, ABDOMEN AND PELVIS WITHOUT CONTRAST CLINICAL INFORMATION: Worsening shortness of breath and abdominal distention. Question fluid overload. COMPARISON: Most recent chest radiograph dated 05/28/[address] dated 03/28/2020. TECHNIQUE: Contiguous axial thin section helical images of the chest, abdomen and pelvis were performed without IV contrast. The data set was reformatted in the coronal and sagittal planes and reviewed on an independent workstation. This CT examination was performed using dose optimization techniques as appropriate, variously including the following: *Automated exposure control *Adjustment of mA and/or kV according to patient size (this includes techniques or standardized protocols for targeted exams where dose is matched to indication/reason for exam; i.e. extremities or head) *Use of iterative reconstruction technique DLP: 1962 mGy-cm FINDINGS: LUNGS: No new pulmonary nodule, mass, or airspace consolidation. The central airways are patent. There are multiple scattered tiny bilateral calcified granulomas, unchanged. PLEURA: No pleural effusion or pneumothorax. No pleural mass or thickening. MEDIASTINUM: Stable, mild cardiomegaly. No significant pericardial effusion. No thoracic aortic dilatation. Mildly prominent superior mediastinal lymph nodes are unchanged. No new or increasing lymphadenopathy. CHEST WALL/AXILLA: No significant lymphadenopathy. THYROID: Asymmetric prominence of the right thyroid lobe is unchanged. LIVER, GALLBLADDER, AND BILIARY TREE: Normal size, shape, and attenuation. No focal hepatic lesion. No intra or extrahepatic biliary ductal dilatation. Nondistended gallbladder with adjacent ascites. PANCREAS: Predominantly fatty replaced. SPLEEN: Unremarkable. ADRENAL GLANDS: Unremarkable. KIDNEYS AND URETERS: Normal size, shape, and attenuation. No hydronephrosis, hydroureter, or calculi. Bilateral simple-appearing renal cysts. Evaluation significantly limited without IV contrast. There are multiple additional renal hypodensities, too small to characterize. BLADDER: Unremarkable. GASTROINTESTINAL TRACT: There are a few scattered colonic diverticula. No bowel wall thickening or inflammatory change. No small or large bowel obstruction. The appendix is unremarkable. PERITONEAL CAVITY: [id number] simple ascites. No intra-abdominal free air. No organized fluid collection/abscess formation. ABDOMINAL WALL: No significant abdominal wall hernia. Anasarca. LYMPH NODES: No significant lymphadenopathy. VASCULAR: No abdominal aortic dilatation. Scattered atherosclerotic calcifications. The IVC is unremarkable. PELVIC VISCERA: The prostate and seminal vesicles are unremarkable. OSSEOUS STRUCTURES: Multilevel degenerative disc disease. No concerning lytic or blastic osseous lesion. CT/CT abdomen pelvis wo con IMPRESSION: 1. No new pulmonary nodule, mass, or airspace consolidation. No pleural effusion. 2. Posq-rh-[id number] simple-appearing ascites without organized fluid collection or abscess formation. Diffuse anasarca. 3. Stable, mildly prominent superior mediastinal lymph nodes. No new superior mediastinal, hilar, or axillary lymphadenopathy. No significant intra-abdominal or intrapelvic lymphadenopathy. 4. Bilateral simple-appearing renal cysts. Multiple additional bilateral renal hypodensities, too small to characterize. No hydronephrosis or nephrolithiasis. 5. No small or large bowel obstruction. Diverticulosis without evidence of acute diverticulitis. Unremarkable appendix.
[2021-02-02 17:25] VITALS: BP 86/60; BP 96/64; PULSE 74; PULSE 93; RESP 22; TEMP 36.6; O2SAT 100; BMI 33.0
[2021-02-02 17:38] VITALS: BP 85/58; PULSE 90; RESP 20; TEMP 36.6; O2SAT 98
[2021-02-02 18:11] LABS: MANUAL DIFF FLAG NO
--- NOTE | 2021-02-02 18:11 | ED_ITS ---
HPI - SOB/Dyspnea General Chief Complaint: Dyspnea Stated Complaint: sob Time Seen by Provider: 02/02/21 17:28 Source: patient and EMS Mode of arrival: EMS Limitations: no limitations History of Present Illness HPI Narrative: 61-year-old male with a past medical history of CHF with ejection fraction less than 10% currently on 80 mg of Lasix b.i.d. daily per patient, atrial fibrillation/flutter on Eliquis and cardiomyopathy presenting to the ED via EMS with complaints of worsening shortness of breath over the past month and a half with associated shortness of breath/dyspnea on exertion and lower extremity edema. He also reports weight loss of approximately 60 lb, abdominal distension, constipation and pruritus. He reports he is taking his medications as prescribed. He reports he is not vaccinated to COVID. He denies any dizziness, lightheadedness, headaches, neck pain/stiffness, changes in vision, jaw pain, cough, sore throat, nausea/vomiting, chest pain, back pain, diarrhea, black or bloody stools, recent travel or sick contacts, calf tenderness or any other symptoms complaints or concerns at this time. MD elicited complaint: shortness of breath and pain with inspiration Pertinent past history: congestive heart failure, PE and other (Atrial fibrillation) Onset (ago): month(s) (1 month and half) Timing: constant and progressively worsening Severity: severe Exacerbating factors: lying flat, exertion, movement, inspiration, talking and deep breaths Relieving factors: nothing Known history of: congestive heart failure, PE and other (Atrial fibrillation) Associated symptoms: pain with inspiration, orthopnea and other (Abdominal distension/fullness, weight loss approximately 60 lb in 1 month and lower extremity edema) Treatment prior to arrival: none Related Data Home oxygen amount: none Home Medications Medication Instructions Recorded Confirmed torsemide 20 mg tablet 80 mg PO BID 06/23/20 02/02/21 carvedilol 6.25 mg tablet 6.25 mg PO BID 07/23/20 02/02/21 albuterol sulfate 90 mcg/actuation 1 inh INHALATION QID PRN 02/02/21 02/02/21 aerosol inhaler (ProAir HFA) Previous Rx's Medication Instructions Recorded apixaban 5 mg tablet (Eliquis) 5 mg PO BID #60 tab 07/10/20 digoxin 125 mcg (0.125 mg) tablet 125 mcg PO DAILY #90 tab 07/23/20 sacubitril 24 mg-valsartan 26 mg 1 tab PO BID #90 tab 07/23/20 tablet alprazolam 1 mg tablet (Xanax) 1 mg PO BEDTIME 30 Days #30 tab 09/02/20 Allergies Allergy/AdvReac Type Severity Reaction Status Date / Time duloxetine [From Cymbalta] AdvReac Intermediate GI upsets Verified 02/02/21 17:38 zolpidem [Ambien] AdvReac Intermediate sleep Verified 02/02/21 17:38 walking Review of Systems Review of Systems: Constitutional : + weight loss 60 lb in 1 month, No Fever, No Chills, No Night Sweats, No Fatigue, No Malaise ENT/Mouth : No Hearing loss, No Ear Pain, No Nasal Congestion, No Sinus Pain, No Hoarseness, No sore throat, No Rhinorrhea, No Swallowing Difficulty Eyes: No Eye Pain, No Swelling, No Redness, No Foreign Body, No Discharge, No Vision Changes Cardiovascular : No Chest Pain, + SOB, + Dyspnea on Exertion, + Orthopnea, + Edema, No Palpitations Respiratory : No Cough, No Sputum, No Wheezing, No Smoke Exposure, + Dyspnea Gastrointestinal : No Nausea, No Vomiting, No Diarrhea, + Constipation, + abdominal distention/Pain, No Hematochezia, No Melena Genitourinary : no irregular bleeding, No Dysuria, No Urinary Frequency, No Hematuria, No Urinary Incontinence, No Urgency, No Flank Pain, No Urinary Flow Changes, No Hesitancy Musculoskeletal : No joint pain, No Myalgias, No Joint Swelling Skin : No Skin Lesions, No rash Neuro : No Weakness, No Numbness, No Paresthesias, No Loss of Consciousness, No Dizziness, No Headache Psych : No Anxiety/Panic, No Depression, No SI/HI/AH/VH, No Social Issues, Heme/Lymph: No Bruising, No Bleeding,No Lymphadenopathy Endocrine : No Polyuria, No Polydipsia, No Temperature Intolerance Yes all other systems are reviewed and are negative [facility] Past Medical History Attestation statement: The following information was validated with the patient. Medical History Atrial fibrillation and flutter Cardiomyopathy Derangement of left shoulder joint Derangement of right shoulder joint Failed back syndrome, cervical Failed back syndrome, lumbar History of cardioversion Left rib fracture Lumbar spondylosis Lumbar spondylosis Persistent atrial fibrillation Surgical History H/O elbow surgery H/O knee surgery History of arteriography History of shoulder surgery History of spinal surgery Family History Family History Father No problems noted. Mother No problems noted. Daughter Breast cancer Social History Social History Household Members: None Housing: Apartment Do you presently have visiting nurse or other home services: No Alcohol intake: never Patient Tobacco Use Status: Former Tobacco user Quit Date: 07/16/20 Cigarettes Per Day: 10 Second Hand Smoke Exposure: No Advance Directives: No Advance Directives Information Provided: Yes service: Yes Current occupational status: unemployed Physical Exam Vital Signs: Vital Signs: Last Vital Signs Temp 98 F 02/02/21 17:38 Pulse 88 02/02/21 19:36 Resp 22 H 02/02/21 19:36 BP 117/59 L 02/02/21 19:36 Pulse Ox 99 02/02/21 19:36 BMI result Body Mass Index 33.0 vital signs have been reviewed as normal and appeared to be correct. Blood pressure hypotensive at 86/60. Heart rate normal. Respiration rate tachypneic at 22. Temperature normal. Oxygen saturation normal. Appearance: Alert. Oriented X3. No acute distress. Head: Normal external exam. Normocephalic. Atraumatic. Eyes: PERRLA. EOMI. Conjunctiva and sclera normal. Eyelids normal. ENT: Pharynx normal. Uvula midline. Moist mucous membranes. No trismus noted. No drooling noted. No muffled voice noted. Neck: Normal inspection. Neck supple. FROM. No adenopathy. Thyroid Normal. No meningeal signs. No neck mass noted. CVS: Normal heart rate and rhythm. Heart sound normal. Pulses normal throughout. No murmurs/rales/gallops. Positive JVD on exam. Respiratory: No respiratory distress. Painless inspiration. Breath sounds normal. No wheezes/rales/rhonchi noted. Chest nontender. No accessory muscle u matti noted or decreased air movement noted. Abdomen: Soft and nontender although noted to be distended. Bowel sounds normal in all 4 quadrants. Positive hepatomegaly. No splenomegaly. No visible injury noted. Back: No CVA tenderness. Full range of motion noted. No rashes/lesion/induration/fluctuance or signs of infection noted. Skin: Skin warm and dry. Normal skin color. Normal skin turgor. No rashes/lesions/lacerations noted. Extremities: +3 pitting edema to lower extremity. No calf tenderness is noted. Extremities exhibit normal range of motion. Extremities nontender. Neuro: Oriented X 3. No motor deficit. No sensory deficit. Reflexes normal. Normal steady gait. No focal neuro deficits noted. Vascular: + radial pulses/+ 2 distal pedal pulses/+2 dorsalis pedis b/l. Normal cap refill. No cyanosis noted to upper extremity nails and lower extremity toes nails. Course Course Course Narrative: 19:30pm - labs reviewed and BUN 22. Total bilirubin 1.7. AST 40. Alkaline phosphate 193. Troponin 33.6. BNP 2695. Otherwise all other labs are within normal limits. UA within normal limits no evidence of UTI. Patient negative for COVID/RSV/flu. - EKG is atrial fibrillation rate controlled. No acute ischemic changes similar compared to prior. - patient is currently on a 10mg/hr of Lasix drip plan to admit at this time for CHF exacerbation discussed this case with who accepted admission at this time. Patient understands agrees with this plan. Reevaluation(s) Reevaluation #1: - CT scans revealed mild to moderate abdominal ascites and renal cysts otherwise no other acute processes. Therefore at this time patient will be admitted. Time: 20:20 MDM - SOB/Dyspnea MDM Narrative Medical decision making narrative: 17:40pm 61-year-old male with a past medical history of CHF with ejection fraction less than 10% currently on 80 mg of Lasix b.i.d. daily per patient, atrial fibrillation/flutter on Eliquis and cardiomyopathy presenting to the ED via EMS with complaints of worsening shortness of breath over the past month and a half with associated shortness of breath/dyspnea on exertion and lower extremity edema. He also reports weight loss of approximately 60 lb, abdominal distension, constipation and pruritus. He reports he is taking his medications as prescribed. On exam patient mildly hypotensive at 86/60 and tachypneic at 22 although oxygen is 100% on room air and it appears that patient has been hypotensive for a while his last visit here in May 2020 his blood pressure was similar. Otherwise no other signs of distress although I brought in Dr. Hobson in [place] Toney and they did a bedside cardiac ultrasound and patient has a dilated I VC. He is noted to have obvious JVD. Abdominal distension. Therefore at this time will obtain labs, EKG, CT scan of chest without contrast and CT scan abdomen pelvis without contrast recommended by Dr. Toney, blood cultures, lactic acid, UA. Insert a Young catheter then when the patient's labs are back Dr. Toney instructed me to start the patient on Lasix 10 mg an hour IV drip plan is to admit. Will re-evaluate. Differential Diagnosis Differential diagnosis: Likely congestive heart failure, pneumonia, pleural effusion and anemia Medical Records Attestation: I reviewed the patient's medical records. Lab Data Attestation: I reviewed the patient's lab results. Result diagrams: 02/02/21 17:59 02/02/21 17:59 Labs: Lab Results 02/02/21 02/02/21 02/02/21 Range/Units 17:59 17:59 17:59 WBC 6.5 (4.8-10.8) X10*3/uL RBC 5.71 (4.60-5.80) X10*6/uL Hgb 16.1 (14.0-18.0) g/dl Hct 50.8 (42.0-52.0) % MCV 89.0 (80.0-98.0) fL MCH 28.2 (27.0-33.0) pg MCHC 31.7 (31.0-36.0) g/dl RDW 17.5 H (11.0-16.0) % Plt Count 257 (160-400) X10*3/uL MPV 9.7 (9.4-12.4) fL Immature Gran % (Auto) 0.3 (0.0-0.4) % Neut % (Auto) 67.4 (45-73) % Lymph % (Auto) 22.3 (20-40) % [place] % (Auto) 8.6 (2-11) % Eos % (Auto) 1.1 (0-4) % Baso % (Auto) 0.3 (0-2) % Lymph # (Auto) 1.5 (1.2-4.9) X10*3/uL [place] # (Auto) 0.6 (0.1-1.2) X10*3/uL Eos # (Auto) 0.1 (0.0-0.4) X10*3/uL Baso # (Auto) 0.0 (0.0-0.2) X10*3/uL Abs Immat Gran (auto) 0.02 (0.00-0.03) X10*3/uL Absolute Neuts (auto) 4.4 (2.0-8.3) x10*3/uL Absolute Nucleated RBC 0.000 (0.0-0.012) X10*3/uL Nucleated RBC % (auto) 0.0 (0.0-0.2) /100WBC PT 21.3 H (9.9-13.0) SEC INR 1.9 H (0.9-1.1) Sodium 140 (135-145) mmol/L Potassium 3.6 (3.3-5.1) mmol/L Chloride 100 (96-108) mmol/L Carbon Dioxide 28 (22-29) mmol/L Anion Gap 16 (12-20) BUN 22 H (9-16) mg/dL Creatinine 1.18 (0.5-1.4) mg/dL Estim Creat Clear Calc 90.4 Estimated GFR > 60 Random Glucose 78 D (60-115) mg/dL Lactic Acid (0.5-2.0) mmol/L Calcium 8.7 (8.4-10.2) mg/dL Magnesium 1.8 (1.6-2.6) mg/dL Total Bilirubin 1.7 H (0.0-1.0) mg/dL AST 40 H D (5-37) U/L ALT 32 (0-40) U/L Alkaline Phosphatase 193 H D (39-117) U/L Troponin I High Sens (<3.5-35.0) ng/L B-Natriuretic Peptide (<100) pg/mL Total Protein 7.2 (6.5-8.0) g/dL Albumin 3.7 (3.5-5.0) g/dL Urine Color Urine Appearance Urine pH (5.0-8.0) Ur Specific [place] (1.005-1.025) Urine Protein (NEG-TRACE) MG/DL Urine Glucose (UA) (NEG) MG/DL Urine Ketones (NEG) MG/DL Urine Blood (NEG) Urine Nitrite (NEG) Ur Leukocyte Esterase (NEG) Influenza Type A (PCR) (Negative) Influenza Type B (PCR) (Negative) RSV RNA Qual (PCR) (Negative) SARS-CoV-2 RNA (RT-PCR) (Negative) 02/02/21 02/02/21 02/02/21 Range/Units 17:59 17:59 17:59 WBC (4.8-10.8) X10*3/uL RBC (4.60-5.80) X10*6/uL Hgb (14.0-18.0) g/dl Hct (42.0-52.0) % MCV (80.0-98.0) fL MCH (27.0-33.0) pg MCHC (31.0-36.0) g/dl RDW (11.0-16.0) % Plt Count (160-400) X10*3/uL MPV (9.4-12.4) fL Immature Gran % (Auto) (0.0-0.4) % Neut % (Auto) (45-73) % Lymph % (Auto) (20-40) % [place] % (Auto) (2-11) % Eos % (Auto) (0-4) % Baso % (Auto) (0-2) % Lymph # (Auto) (1.2-4.9) X10*3/uL [place] # (Auto) (0.1-1.2) X10*3/uL Eos # (Auto) (0.0-0.4) X10*3/uL Baso # (Auto) (0.0-0.2) X10*3/uL Abs Immat Gran (auto) (0.00-0.03) X10*3/uL Absolute Neuts (auto) (2.0-8.3) x10*3/uL Absolute Nucleated RBC (0.0-0.012) X10*3/uL Nucleated RBC % (auto) (0.0-0.2) /100WBC PT (9.9-13.0) SEC INR (0.9-1.1) Sodium (135-145) mmol/L Potassium (3.3-5.1) mmol/L Chloride (96-108) mmol/L Carbon Dioxide (22-29) mmol/L Anion Gap (12-20) BUN (9-16) mg/dL Creatinine (0.5-1.4) mg/dL Estim Creat Clear Calc Estimated GFR Random Glucose (60-115) mg/dL Lactic Acid 2.0 (0.5-2.0) mmol/L Calcium (8.4-10.2) mg/dL Magnesium (1.6-2.6) mg/dL Total Bilirubin (0.0-1.0) mg/dL AST (5-37) U/L ALT (0-40) U/L Alkaline Phosphatase (39-117) U/L Troponin I High Sens 33.6 (<3.5-35.0) ng/L B-Natriuretic Peptide 2695 H (<100) pg/mL Total Protein (6.5-8.0) g/dL Albumin (3.5-5.0) g/dL Urine Color Urine Appearance Urine pH (5.0-8.0) Ur Specific [place] (1.005-1.025) Urine Protein (NEG-TRACE) MG/DL Urine Glucose (UA) (NEG) MG/DL Urine Ketones (NEG) MG/DL Urine Blood (NEG) Urine Nitrite (NEG) Ur Leukocyte Esterase (NEG) Influenza Type A (PCR) NEGATIVE (Negative) Influenza Type B (PCR) NEGATIVE (Negative) RSV RNA Qual (PCR) NEGATIVE (Negative) SARS-CoV-2 RNA (RT-PCR) NEGATIVE (Negative) 02/02/21 Range/Units 17:59 WBC (4.8-10.8) X10*3/uL RBC (4.60-5.80) X10*6/uL Hgb (14.0-18.0) g/dl Hct (42.0-52.0) % MCV (80.0-98.0) fL MCH (27.0-33.0) pg MCHC (31.0-36.0) g/dl RDW (11.0-16.0) % Plt Count (160-400) X10*3/uL MPV (9.4-12.4) fL Immature Gran % (Auto) (0.0-0.4) % Neut % (Auto) (45-73) % Lymph % (Auto) (20-40) % [place] % (Auto) (2-11) % Eos % (Auto) (0-4) % Baso % (Auto) (0-2) % Lymph # (Auto) (1.2-4.9) X10*3/uL [place] # (Auto) (0.1-1.2) X10*3/uL Eos # (Auto) (0.0-0.4) X10*3/uL Baso # (Auto) (0.0-0.2) X10*3/uL Abs Immat Gran (auto) (0.00-0.03) X10*3/uL Absolute Neuts (auto) (2.0-8.3) x10*3/uL Absolute Nucleated RBC (0.0-0.012) X10*3/uL Nucleated RBC % (auto) (0.0-0.2) /100WBC PT (9.9-13.0) SEC INR (0.9-1.1) Sodium (135-145) mmol/L Potassium (3.3-5.1) mmol/L Chloride (96-108) mmol/L Carbon Dioxide (22-29) mmol/L Anion Gap (12-20) BUN (9-16) mg/dL Creatinine (0.5-1.4) mg/dL Estim Creat Clear Calc Estimated GFR Random Glucose (60-115) mg/dL Lactic Acid (0.5-2.0) mmol/L Calcium (8.4-10.2) mg/dL Magnesium (1.6-2.6) mg/dL Total Bilirubin (0.0-1.0) mg/dL AST (5-37) U/L ALT (0-40) U/L Alkaline Phosphatase (39-117) U/L Troponin I High Sens (<3.5-35.0) ng/L B-Natriuretic Peptide (<100) pg/mL Total Protein (6.5-8.0) g/dL Albumin (3.5-5.0) g/dL Urine Color YELLOW Urine Appearance CLEAR Urine pH 6.0 (5.0-8.0) Ur Specific [place] 1.015 (1.005-1.025) Urine Protein NEG (NEG-TRACE) MG/DL Urine Glucose (UA) NEG (NEG) MG/DL Urine Ketones NEG (NEG) MG/DL Urine Blood NEG (NEG) Urine Nitrite NEG (NEG) Ur Leukocyte Esterase NEG (NEG) Influenza Type A (PCR) (Negative) Influenza Type B (PCR) (Negative) RSV RNA Qual (PCR) (Negative) SARS-CoV-2 RNA (RT-PCR) (Negative) Imaging Data CT scan of chest and abdomen pelvis without contrast: Attestation: I personally reviewed and interpreted this imaging study as follows: Radiologist's impression: FINDINGS: LUNGS: No new pulmonary nodule, mass, or airspace consolidation. The central airways are patent. There are multiple scattered tiny bilateral calcified granulomas, unchanged.? PLEURA: No pleural effusion or pneumothorax. No pleural mass or thickening. MEDIASTINUM: Stable, mild cardiomegaly. No significant pericardial effusion. No thoracic aortic dilatation. Mildly prominent superior mediastinal lymph nodes are unchanged. No new or increasing lymphadenopathy. CHEST WALL/AXILLA: No significant lymphadenopathy.? THYROID: Asymmetric prominence of the right thyroid lobe is unchanged. LIVER, GALLBLADDER, AND BILIARY TREE: Normal size, shape, and attenuation. No focal hepatic lesion. No intra or extrahepatic biliary ductal dilatation. Nondistended gallbladder with adjacent ascites.? PANCREAS: Predominantly fatty replaced.? SPLEEN: Unremarkable.? ADRENAL GLANDS: Unremarkable.? KIDNEYS AND URETERS: Normal size, shape, and attenuation. No hydronephrosis, hydroureter, or calculi. Bilateral simple-appearing renal cysts. Evaluation significantly limited without IV contrast. There are multiple additional renal hypodensities, too small to characterize.? BLADDER: Unremarkable.? GASTROINTESTINAL TRACT: There are a few scattered colonic diverticula. No bowel wall thickening or inflammatory change. No small or large bowel obstruction. The appendix is unremarkable. PERITONEAL CAVITY: [id number] simple ascites. No intra-abdominal free air. No organized fluid collection/abscess formation. ABDOMINAL WALL: No significant abdominal wall hernia. Anasarca.? LYMPH NODES: No significant lymphadenopathy. VASCULAR: No abdominal aortic dilatation. Scattered atherosclerotic calcifications. The IVC is unremarkable. PELVIC VISCERA: The prostate and seminal vesicles are unremarkable. OSSEOUS STRUCTURES: Multilevel degenerative disc disease. No concerning lytic or blastic osseous lesion. CT/CT abdomen pelvis wo con IMPRESSION: 1. No new pulmonary nodule, mass, or airspace consolidation. No pleural effusion. ? 2. [id number] simple-appearing ascites without organized fluid collection or abscess formation. Diffuse anasarca. ? 3. Stable, mildly prominent superior mediastinal lymph nodes. No new superior mediastinal, hilar, or axillary lymphadenopathy. No significant intra-abdominal or intrapelvic lymphadenopathy. ? 4. Bilateral simple-appearing renal cysts. Multiple additional bilateral renal hypodensities, too small to characterize. No hydronephrosis or nephrolithiasis. ? 5. No small or large bowel obstruction. Diverticulosis without evidence of acute diverticulitis. Unremarkable appendix. ECG Data Attestation: I personally reviewed and interpreted this ECG as follows: ECG interpretation date: 02/02/21 ECG interpretation time: 06:20 Interpretation: Atrial fibrillation with a ventricular rate of 85 with minimal voltage criteria for LVH with nonspecific ST abnormalities no acute ischemic change are noted. Similar compared to prior EKG 05/28/2020 Critical Care Time Critical Care Time Critical Care Time: Yes Total Critical Care Time: 60 Attestation: I personally attest to this time spent taking care of the patient Discharge Plan Discharge Clinical Impression: Acute on chronic systolic (congestive) heart failure, Anasarca, Abdominal ascites, Renal cyst Patient Disposition: Admitted As Inpatient
[2021-02-02 18:13] LABS: Basophils Percent Auto 0.3 % (0-2); Eosinophils Absolute Auto 0.1 X10*3/uL (0.0-0.4); Eosinophils Percent Auto 1.1 % (0-4); Hematocrit 50.8 % (42.0-52.0); Hemoglobin 16.1 g/dl (14.0-18.0); Imm Gran Abs Auto 0.02 X10*3/uL (0.00-0.03); Imm Gran Pct Auto 0.3 % (0.0-0.4); Lymphocytes Absolute Auto 1.5 X10*3/uL (1.2-4.9); Lymphocytes Percent Auto 22.3 % (20-40); Mean Corpuscular HGB Conc 31.7 g/dl (31.0-36.0); Mean Corpuscular Hemoglobin 28.2 pg (27.0-33.0); Mean Platelet Volume 9.7 fL (9.4-12.4); Monocytes Absolute Auto 0.6 X10*3/uL (0.1-1.2); Monocytes Percent Auto 8.6 % (2-11); Neutrophils Absolute Auto 4.4 x10*3/uL (2.0-8.3); Neutrophils Percent Auto 67.4 % (45-73); Platelet Count 257 X10*3/uL (160-400); Red Blood Count 5.71 X10*6/uL (4.60-5.80); Red Cell Distribution Width 17.5 % (11.0-16.0); White Blood Count 6.5 X10*3/uL (4.8-10.8)
--- NOTE | 2021-02-02 18:18 | ECG_ITS ---
Test Reason : CHEST PAINM Blood Pressure : / mmHG Vent. Rate : 085 BPM Atrial Rate : 000 BPM P-R Int : 000 ms QRS Dur : 112 ms QT Int : 414 ms P-R-T Axes : 000 -28 139 degrees QTc Int : 492 ms Atrial fibrillation Minimal voltage criteria for LVH, may be normal variant ( [place] product ) Anterolateral infarct , age undetermined Abnormal ECG No previous ECGs available Referred By: Eun Robles Electronically Signed By:TABITHA BIGGS MD
[2021-02-02 18:19] LABS: Appearance Urine CLEAR; Color Urine YELLOW; Glucose Urine UA NEG (NEG); INTERNATIONAL NORM RATIO 1.9 (0.9-1.1); Leukocyte Esterase Urine NEG (NEG); Nitrite Urine NEG (NEG); Prothrombin Time 21.3 SEC (9.9-13.0); Specific Gravity - Urine 1.015 (1.005-1.025); Urine Blood NEG (NEG); Urine Ketones NEG (NEG); Urine Protein NEG (NEG-TRACE)
[2021-02-02 18:27] LABS: Alanine Aminotransferase 32 U/L (0-40); Albumin Level 3.7 g/dL (3.5-5.0); Alkaline Phosphatase 193 U/L (39-117); Anion Gap 16 (12-20); Aspartate Amino Transferase 40 U/L (5-37); Bilirubin Total 1.7 mg/dL (0.0-1.0); Blood Urea Nitrogen 22 mg/dL (9-16); Calcium 8.7 mg/dL (8.4-10.2); Carbon Dioxide 28 mmol/L (22-29); Chloride 100 mmol/L (96-108); Creatinine Clr Calc Pharmacy 90.4; Estimated Glomerular Filt Rate > 60; Glucose Random 78 mg/dL (60-115); Magnesium 1.8 mg/dL (1.6-2.6); Potassium 3.6 mmol/L (3.3-5.1); Sodium 140 mmol/L (135-145); Total Protein 7.2 g/dL (6.5-8.0)
[2021-02-02 18:32] LABS: B Type Natriuretic Peptide 2695 pg/mL (<100); Troponin-I High Sensitivity 33.6 ng/L (<3.5-35.0)
[2021-02-02 18:56] LABS: Influenza A PCR NEGATIVE (Negative); Influenza B PCR NEGATIVE (Negative); Resp Syncy Virus RNA Qual PCR NEGATIVE (Negative); SARS COV2 PCR INHOUSE NEGATIVE (Negative)
--- NOTE | 2021-02-02 18:56 | W.PM.CCCN ---
History of Present Illness Data of Consult Service Date: 02/02/21 Requesting physician: Brandan Hobson Primary Care Provider: Unknown Physician HPI Reason for consult: CHF 61-year-old with known atrial fibrillation and history of congestive heart failure presents with a marked increase in exertional dyspnea as well as increasing abdominal girth and peripheral edema and noted to have a blood pressure of 84 which I said with this level of function is probably chronic and we did document on outpatient records his last systolic pressure was 87 so it is the same ballpark currently recumbent and not in respiratory distress but has marked neck vein distension and poor bilateral carotid upstrokes consistent with congestive cardiomyopathy probable biventricular but predominant right heart failure bedside echo to rule out concomitant pericardial disease demonstrates markedly dilated left ventricle with severe diffuse hypokinesis and 20% ejection fraction with a somewhat smaller but relatively hyperdynamic right ventricle with significant biatrial enlargement and no evidence of pericardial effusion but probably has significant pleural effusions 4+ bilateral weeping peripheral edema no evidence of cellulitis although he has stasis dermatitis and currently of course is in atrial fibrillation with controlled rate in the 80s and frequent PVCs stable renal function numbers with creatinine of 1.18 and no metabolic issues so my recommendation here is to avoid sympathomimetics because we risk bringing his heart rate up and compromising stroke volume that way but I would recommend a Lasix drip so that we can decompress the left heart and reduce what looks to be in internal tamponade and I would guess that his stroke volume will increase his GFR will probably increase and along with the diuresis will probably get improvement in his biventricular function and I doubt if were going to compromise at his level of filling pressure his but his blood pressure Review of Systems Review of Systems: Yes all other systems are reviewed and are negative [facility] Past Medical History Medical History Atrial fibrillation and flutter Cardiomyopathy Derangement of left shoulder joint Derangement of right shoulder joint Failed back syndrome, cervical Failed back syndrome, lumbar History of cardioversion Left rib fracture Lumbar spondylosis Lumbar spondylosis Persistent atrial fibrillation Family History Family History Father No problems noted. Mother No problems noted. Daughter Breast cancer Surgical History Surgical History H/O elbow surgery H/O knee surgery History of arteriography History of shoulder surgery History of spinal surgery Social History Social History Household Members: None Housing: Apartment Do you presently have visiting nurse or other home services: No Alcohol intake: never Patient Tobacco Use Status: Former Tobacco user Quit Date: 07/16/20 Cigarettes Per Day: 10 Second Hand Smoke Exposure: No Advance Directives: No Advance Directives Information Provided: Yes service: Yes Current occupational status: unemployed Meds Allergies Allergy/AdvReac Type Severity Reaction Status Date / Time duloxetine [From Cymbalta] AdvReac Intermediate GI upsets Verified 02/02/21 17:38 zolpidem [Ambien] AdvReac Intermediate sleep Verified 02/02/21 17:38 walking Active Medications: Current Medications Furosemide 200 mg/ Sodium (Chloride) 100 mls @ 5 mls/hr IVCONT .Q20H [facility] Pharmacy Consult (Consult Rx Perform Med Rec) 1 each MISCELLANE ONCE PRN PRN Reason: Consult order Home Medications Medication Instructions Recorded Confirmed Last Taken Type torsemide 20 mg tablet 80 mg PO BID 06/23/20 02/02/21 02/02/21 History carvedilol 6.25 mg tablet 6.25 mg PO BID 07/23/20 02/02/21 02/02/21 History albuterol sulfate 90 mcg/actuation 1 inh INHALATION QID PRN 02/02/21 02/02/21 Unknown History aerosol inhaler (ProAir HFA) Physical Exam Vital Signs: Vital Signs: Last Vital Signs Temp 98 F 02/02/21 17:38 Pulse 90 02/02/21 17:38 Resp 20 02/02/21 17:38 BP 85/58 L 02/02/21 17:38 Pulse Ox 98 02/02/21 17:38 BMI result Body Mass Index 33.0 On exam in the supine position minimally tachypneic no accessory muscle or diaphragmatic effort awaken oriented and nonfocal neurologically marked neck vein distension and somewhat diminished bilateral carotid upstrokes and and along with 4+ bilateral pretibial edema and indicating in all probability predominant right heart failure atrial fibrillation with controlled ventricular response with frequent PVCs and bedside echo demonstrating marked dilatation and severe diffuse hypokinesis of left ventricle with completely akinetic anteroseptal distribution which is a possibly a row a reflection of an infarct of undated age but no primary valve or pericardial disease and ejection fraction probably 15-20% abdomen soft with no organomegaly no adventitious sounds in the lungs Results Labs CBC & Chem 7: 02/02/21 17:59 02/02/21 17:59 Labs: Short CBC 02/02/21 Range/Units 17:59 WBC 6.5 (4.8-10.8) X10*3/uL Hgb 16.1 (14.0-18.0) g/dl Hct 50.8 (42.0-52.0) % Plt Count 257 (160-400) X10*3/uL BMP 02/02/21 17:59 Sodium 140 Potassium 3.6 Chloride 100 Carbon Dioxide 28 BUN 22 H Creatinine 1.18 Calcium 8.7 Liver Function 02/02/21 Range/Units 17:59 Total Bilirubin 1.7 H (0.0-1.0) mg/dL AST 40 H D (5-37) U/L ALT 32 (0-40) U/L Alkaline Phosphatase 193 H D (39-117) U/L Albumin 3.7 (3.5-5.0) g/dL Urine 02/02/21 Range/Units 17:59 Urine Color YELLOW Urine Appearance CLEAR Urine pH 6.0 (5.0-8.0) Ur Specific [place] 1.015 (1.005-1.025) Urine Protein NEG (NEG-TRACE) MG/DL Urine Glucose (UA) NEG (NEG) MG/DL Assessment and Plan (1) Foot ulcer: Status: Acute (2) Acute exacerbation of CHF (congestive heart failure): Status: Acute (3) Anasarca: Status: Acute (4) Abdominal ascites: Status: Acute (5) RLS (restless legs syndrome): Status: Acute (6) Chronic heart failure: Status: Acute (7) Chronic atrial fibrillation: Status: Acute (8) Neuropathy: Status: Acute (9) Supratherapeutic INR: Status: Acute (10) Neuropathy: Status: Acute (11) NICM (nonischemic cardiomyopathy): Status: Acute (12) Acute on chronic systolic (congestive) heart failure: Status: Acute (13) CHF exacerbation: Status: Acute the the plan was for for him to receive IV Lasix drip and because the sympathomimetic to support his heart muscle were probably elevate his heart rate the diuresis will decompress the left ventricle which is the main source of his internal tamponade and that should improve item with improved stroke volume which will then improve his blood pressure and his GFR and I think that is the mainstay of his therapy is the Lasix drip with a careful watching of his potassium and magnesium levels
[2021-02-02] MEDS: Furosemide 200 MG in 0.9 % Sodium Chloride 80 ML IVCONT (19:31)
[2021-02-02 19:33] VITALS: BP 95/63; PULSE 87; RESP 20; O2SAT 99
[2021-02-02 19:36] VITALS: BP 117/59; PULSE 88; RESP 22; O2SAT 99
--- NOTE | 2021-02-02 20:02 | PHA.MEDREC ---
Pharmacy Consult ? Medication Reconciliation Pharmacy has completed the medication reconciliation. Spoke with patient in ED. Patient was familiar with his medications. He states he is no longer taking Duloxetine, Gabapentin and Pregabalin because they do not work. He claims to be using a gold inhaler and that he fills this inhaler at [facility] but the only inhaler they have filled is albuterol. He says he is on torsemide 80 mg BID ( filled at pharmacy as 40 mg bid).
--- NOTE | 2021-02-02 20:37 | PC.NURSE ---
Ontiveros catheter attempted by Anton and RN, pt stated 10/10 pain and unable to insert catheter. Pt refusing ontiveros catheter at this time, MD Dupree aware and stated hold ontiveros catheter for now. Pt able to urinate in urinal without diificulties and states he would rather use urinal.
[2021-02-02 20:38] VITALS: BP 92/68; PULSE 90; RESP 15; O2SAT 100
--- NOTE | 2021-02-02 21:25 | PM.IMHP ---
History of Present Illness Date of Service: 02/02/21 Chief Complaint: SOB, leg swelling this is a 61-year-old male with a past medical history of CHF with ejection fraction less than 10%, AFib on Eliquis, cardiomyopathy,? who presents to the hospital with complaints of leg swelling as well as shortness of breath for the past 1 month. Patient reports compliance with his torsemide which is 80 mg b.i.d., at this time he is evicted from his home and lives in a motel with his [employer] OPER[employer] but is very miserable and not happy, he reports orthopnea and PND. He denies having any chest pain, no cough, no palpitations,no abdominal pain, nausea or vomiting, no diarrhea constipation, he has no urinary symptoms . No weakness numbness or tingling, he has a sore on the base of his right foot that he reports was taking doxycycline, he reports that improved but it reoccurred about a month ago on arrival to the ED patient has a temp of 98, heart rate of 93, respiratory rate of 21, blood pressure of 86/60, satting 100% on room air, labs are significant for WBC count of 6.5, PT of 21, INR 1.9, BUN of 22, BNP of 2695, UA negative, COVID-19 influenza and RSV negative chest CT, pelvic and abdomen CT showed no new pulmonary nodule mass or airspace consolidation, no pleural effusion, mild to moderate simple appearing ascites without organized fluid collection or abscess formation in the abdomen given his hypotension as well as treatment need for heart failure patient was evaluated by environmental health safety engineer, patient was started on Lasix drip at 10 milligrams/hour, he apparently has a history of hypotension, patient is at this time asymptomatic patient will be admitted for further management Review of Systems Review of Systems: Yes all other systems are reviewed and are negative [facility] Medical History Atrial fibrillation and flutter Cardiomyopathy Derangement of left shoulder joint Derangement of right shoulder joint Failed back syndrome, cervical Failed back syndrome, lumbar History of cardioversion Left rib fracture Lumbar spondylosis Lumbar spondylosis Persistent atrial fibrillation Family History Father No problems noted. Mother No problems noted. Daughter Breast cancer Surgical History H/O elbow surgery H/O knee surgery History of arteriography History of shoulder surgery History of spinal surgery Social History Household Members: None Housing: Apartment Do you presently have visiting nurse or other home services: No Alcohol intake: never Patient Tobacco Use Status: Former Tobacco user Quit Date: 07/16/20 Cigarettes Per Day: 10 Second Hand Smoke Exposure: No Advance Directives: No Advance Directives Information Provided: Yes service: Yes Current occupational status: unemployed Meds Allergies Allergy/AdvReac Type Severity Reaction Status Date / Time duloxetine [From Cymbalta] AdvReac Intermediate GI upsets Verified 02/02/21 17:38 zolpidem [Ambien] AdvReac Intermediate sleep Verified 02/02/21 17:38 walking Active Medications: Current Medications Furosemide 200 mg/ Sodium (Chloride) 100 mls @ 5 mls/hr IVCONT .Q20H [facility] Last Admin: 02/02/21 19:31 Dose: 10 mg/hr, 5 mls/hr Documented by: Pharmacy Consult (Consult Rx Perform Med Rec) 1 each MISCELLANE ONCE PRN PRN Reason: Consult order Home Medications Medication Instructions Recorded Confirmed Last Taken Type torsemide 20 mg tablet 80 mg PO BID 06/23/20 02/02/21 02/02/21 History carvedilol 6.25 mg tablet 6.25 mg PO BID 07/23/20 02/02/21 02/02/21 History albuterol sulfate 90 mcg/actuation 1 inh INHALATION QID PRN 02/02/21 02/02/21 Unknown History aerosol inhaler (ProAir HFA) Physical Exam Vital Signs and Narrative: Vital Signs: Last Vital Signs Temp 98 F 02/02/21 17:38 Pulse 90 02/02/21 20:38 Resp 15 02/02/21 20:38 BP 92/68 02/02/21 20:38 Pulse Ox 100 02/02/21 20:38 BMI result Body Mass Index 33.0 Const: General: cooperative and no acute distress Orientation/consciousness: patient oriented x3 Eyes: General: appearance normal, both eyes and all related structures Pupils: Equal, round and reactive pupils present Resp: Effort & Inspection: normal respiratory effort Auscultation: clear to auscultation bilaterally Cardio: Rate: regular rate Rhythm: regular rhythm GI: Palpation (GI): Soft to palpation Auscultation: normal bowel sounds Skin: General skin exam: no rashes or lesions noted Neuro: General: patient oriented x3 Cranial nerves: Yes Equal, round and reactive pupils present Cognition (Neuro): normal cognition Extrem: Other: 2+ pedal edema has a small non draining open wound in the base of his right big toe General: Yes normal to inspection Results Labs CBC and Chem 7: 02/02/21 17:59 02/02/21 17:59 Labs: Laboratory Results - last 24 hr 02/02/21 02/02/21 02/02/21 17:59 17:59 17:59 MCV 89.0 MCH 28.2 MCHC 31.7 RDW 17.5 H Plt Count 257 MPV 9.7 Immature Gran % (Auto) 0.3 Neut % (Auto) 67.4 Lymph % (Auto) 22.3 [place] % (Auto) 8.6 Eos % (Auto) 1.1 Baso % (Auto) 0.3 Lymph # (Auto) 1.5 [place] # (Auto) 0.6 Eos # (Auto) 0.1 Baso # (Auto) 0.0 Abs Immat Gran (auto) 0.02 Absolute Neuts (auto) 4.4 Absolute Nucleated RBC 0.000 Nucleated RBC % (auto) 0.0 PT 21.3 H INR 1.9 H Anion Gap 16 Estim Creat Clear Calc 90.4 Estimated GFR > 60 Random Glucose 78 D Lactic Acid Calcium 8.7 Magnesium 1.8 Total Bilirubin 1.7 H AST 40 H D ALT 32 Alkaline Phosphatase 193 H D Troponin I High Sens B-Natriuretic Peptide Total Protein 7.2 Albumin 3.7 Urine Color Urine Appearance Urine pH Ur Specific [place] Urine Protein Urine Glucose (UA) Urine Ketones Urine Blood Urine Nitrite Ur Leukocyte Esterase Influenza Type A (PCR) Influenza Type B (PCR) RSV RNA Qual (PCR) SARS-CoV-2 RNA (RT-PCR) 02/02/21 02/02/21 02/02/21 17:59 17:59 17:59 MCV MCH MCHC RDW Plt Count MPV Immature Gran % (Auto) Neut % (Auto) Lymph % (Auto) [place] % (Auto) Eos % (Auto) Baso % (Auto) Lymph # (Auto) [place] # (Auto) Eos # (Auto) Baso # (Auto) Abs Immat Gran (auto) Absolute Neuts (auto) Absolute Nucleated RBC Nucleated RBC % (auto) PT INR Anion Gap Estim Creat Clear Calc Estimated GFR Random Glucose Lactic Acid 2.0 Calcium Magnesium Total Bilirubin AST ALT Alkaline Phosphatase Troponin I High Sens 33.6 B-Natriuretic Peptide 2695 H Total Protein Albumin Urine Color Urine Appearance Urine pH Ur Specific [place] Urine Protein Urine Glucose (UA) Urine Ketones Urine Blood Urine Nitrite Ur Leukocyte Esterase Influenza Type A (PCR) NEGATIVE Influenza Type B (PCR) NEGATIVE RSV RNA Qual (PCR) NEGATIVE SARS-CoV-2 RNA (RT-PCR) NEGATIVE 02/02/21 17:59 MCV MCH MCHC RDW Plt Count MPV Immature Gran % (Auto) Neut % (Auto) Lymph % (Auto) [place] % (Auto) Eos % (Auto) Baso % (Auto) Lymph # (Auto) [place] # (Auto) Eos # (Auto) Baso # (Auto) Abs Immat Gran (auto) Absolute Neuts (auto) Absolute Nucleated RBC Nucleated RBC % (auto) PT INR Anion Gap Estim Creat Clear Calc Estimated GFR Random Glucose Lactic Acid Calcium Magnesium Total Bilirubin AST ALT Alkaline Phosphatase Troponin I High Sens B-Natriuretic Peptide Total Protein Albumin Urine Color YELLOW Urine Appearance CLEAR Urine pH 6.0 Ur Specific [place] 1.015 Urine Protein NEG Urine Glucose (UA) NEG Urine Ketones NEG Urine Blood NEG Urine Nitrite NEG Ur Leukocyte Esterase NEG Influenza Type A (PCR) Influenza Type B (PCR) RSV RNA Qual (PCR) SARS-CoV-2 RNA (RT-PCR) Imaging Radiologist's Impressions: Impressions Abdomen/Pelvis CT 02/02/21 18:46 IMPRESSION: 1. No new pulmonary nodule, mass, or airspace consolidation. No pleural effusion. 2. [id number] simple-appearing ascites without organized fluid collection or abscess formation. Diffuse anasarca. 3. Stable, mildly prominent superior mediastinal lymph nodes. No new superior mediastinal, hilar, or axillary lymphadenopathy. No significant intra-abdominal or intrapelvic lymphadenopathy. 4. Bilateral simple-appearing renal cysts. Multiple additional bilateral renal hypodensities, too small to characterize. No hydronephrosis or nephrolithiasis. 5. No small or large bowel obstruction. Diverticulosis without evidence of acute diverticulitis. Unremarkable appendix. Chest CT 02/02/21 18:46 IMPRESSION: 1. No new pulmonary nodule, mass, or airspace consolidation. No pleural effusion. 2. [id number] simple-appearing ascites without organized fluid collection or abscess formation. Diffuse anasarca. 3. Stable, mildly prominent superior mediastinal lymph nodes. No new superior mediastinal, hilar, or axillary lymphadenopathy. No significant intra-abdominal or intrapelvic lymphadenopathy. 4. Bilateral simple-appearing renal cysts. Multiple additional bilateral renal hypodensities, too small to characterize. No hydronephrosis or nephrolithiasis. 5. No small or large bowel obstruction. Diverticulosis without evidence of acute diverticulitis. Unremarkable appendix. Assessment and Plan (1) Acute exacerbation of CHF (congestive heart failure): Status: Acute (2) Foot ulcer: Status: Acute This is a 60-year-old male with past medical history of CHF with ejection fraction less than 10% presents to the hospital with orthopnea, PND, shortness of breath # acute CHF exacerbation - last echo done in in March of this year shows ejection fraction of less than 10% - patient reports compliance with his torsemide 80 mg b.i.d. - elevated BNP, no reported pulmonary congestion on chest x-ray - patient was started on Lasix 10 mg/hr by ED physician as well as with consultation of the environmental health safety engineer, will continue - low-sodium diet, strict I&O, daily weight - cardiology consult # foot ulcer - does not appear infected - afebrile, no leukocytosis - ESR and CRP are negative - at this time will consult wound care - monitor - reports chronic neuropathy as a result of his back and neck surgeries # AFib - continue Eliquis and carvedilol DVT prophylaxis:? Eliquis Quality Stroke Does the patient have a stroke diagnosis?: No VTE Prior VTE?: No VTE Risk Level:: Medical - moderate - high VTE Device Contraindication: Treatment Not Indicated VTE Drug Contraindication: N/A - Med Ordered
[2021-02-02 21:43] LABS: Troponin-I High Sensitivity 27.2 ng/L (<3.5-35.0)
[2021-02-02 21:51] LABS: C Reactive Protein 2.41 mg/dL (< or = 0.50)
[2021-02-02 22:31] LABS: Erythrocyte Sedimentation Rate 1 MM/HR (0-15)
[2021-02-02] MEDS: Apixaban 5 MG TABLET PO (22:37)
[2021-02-02] MEDS: ALPRAZolam 0.5 MG TABLET 1 MG PO (22:37)
[2021-02-02 22:39] VITALS: BP 108/77; PULSE 93; RESP 16; O2SAT 98
[2021-02-03] VITALS (9 sets, daily range): BP systolic 95–107; BP diastolic 62–78; PULSE 80–103; RESP 18–88; TEMP 36.4–36.5; O2SAT 98–100
--- NOTE | 2021-02-03 03:08 | PC.NURSE ---
REPORT TAKEN FROM JACOB RN, FIRST CONTACT WITH PT. SITTING UP IN BED, A&Ox4, SKIN PWD RESPIRATIONS EVEN UNLABORED. LASIX DRIP INFUSING WITHOUT DIFFICULTY. awaiting bed assignment for admission. aware of plan of care.
[2021-02-03 06:59] LABS: MANUAL DIFF FLAG NO
[2021-02-03 07:05] LABS: Basophils Percent Auto 0.5 % (0-2); Eosinophils Absolute Auto 0.1 X10*3/uL (0.0-0.4); Eosinophils Percent Auto 1.3 % (0-4); Hematocrit 43.7 % (42.0-52.0); Hemoglobin 14.2 g/dl (14.0-18.0); Imm Gran Abs Auto 0.02 X10*3/uL (0.00-0.03); Imm Gran Pct Auto 0.3 % (0.0-0.4); Lymphocytes Absolute Auto 1.4 X10*3/uL (1.2-4.9); Lymphocytes Percent Auto 21.6 % (20-40); Mean Corpuscular HGB Conc 32.5 g/dl (31.0-36.0); Mean Corpuscular Hemoglobin 28.5 pg (27.0-33.0); Mean Corpuscular Volume 87.6 fL (80.0-98.0); Mean Platelet Volume 9.9 fL (9.4-12.4); Monocytes Absolute Auto 0.8 X10*3/uL (0.1-1.2); Monocytes Percent Auto 12.3 % (2-11); Neutrophils Absolute Auto 4.1 x10*3/uL (2.0-8.3); Platelet Count 214 X10*3/uL (160-400); Red Blood Count 4.99 X10*6/uL (4.60-5.80); Red Cell Distribution Width 16.6 % (11.0-16.0); White Blood Count 6.4 X10*3/uL (4.8-10.8)
[2021-02-03 07:29] LABS: Anion Gap 11 (12-20); Blood Urea Nitrogen 18 mg/dL (9-16); Calcium 8.1 mg/dL (8.4-10.2); Carbon Dioxide 29 mmol/L (22-29); Chloride 102 mmol/L (96-108); Estimated Glomerular Filt Rate > 60; Glucose Random 121 mg/dL (60-115); Potassium 3.1 mmol/L (3.3-5.1); Sodium 139 mmol/L (135-145)
--- NOTE | 2021-02-03 08:32 | PC.NURSE ---
unlabored resp at rest. pitting edema to thighs. c/o leg pain from all the water states he's able to stand and void. awaits bed on floor axox3. skin p-wd.
[2021-02-03] MEDS: Apixaban 5 MG TABLET PO ×2 (09:02→21:56)
[2021-02-03] MEDS: Digoxin 0.125 MG TABLET PO (09:02)
[2021-02-03] MEDS: Potassium Chloride Packet 20 MEQ PACKET 40 MEQ PO ×2 (09:02→21:43)
[2021-02-03 09:58] LABS: Magnesium 1.4 mg/dL (1.6-2.6)
--- NOTE | 2021-02-03 10:01 | PM.CNCAR ---
History of Present Illness History of Present Illness Date of Service: 02/03/21 Requesting physician: Jeovany Krishnan Consult reason: congestive heart failure Chief complaint: CHF Exacerbation Narrative: I was requested to see David in cardiology consultation today for decompensated congestive heart failure. He has prior history of severe nonischemic cardiomyopathy and chronic atrial fibrillation. Was last admitted in May and was discharged to [facility] for advanced heart failure management. Subsequently seen by Dr. Choe in cardiology clinic in July and no follow-up since then. Patient said he was doing well and felt like he would need to follow-up. He said he has been taking his medications religiously however there is been a change in his living situation, he was evicted from his apartment and was living in a motel and there was no control on his diet and was eating outside food. He said about a month ago he started noticing increased leg swelling, increase abdominal distension, increase shortness of breath as well as orthopnea. He did not have any lightheadedness, palpitations, syncope. He did not have any chest pain. He yesterday because of progressive symptoms not getting better a decided come to the emergency room. He was noted in decompensated congestive heart failure. Has been started on Lasix drip at 10 mg an hour with good diuresis. He feels that his abdominal distention is much improved. He was seen by ICU due to initial low blood pressure. Echocardiogram was done at bedside, no images for review. Patient says he is feeling better but still quite fluid overloaded. His carvedilol was withheld for some reason. His blood pressure is better. He is currently on digoxin, Eliquis, Entresto and Lasix drip. Review of Systems Constitutional: Constitutional: Reports fatigue, Reports lethargy and Reports weight gain Eyes: Eyes: Reports no additional eye complaints Cardiovascular: Cardiovascular: Reports Abdominal Distension, Denies chest pain, Reports leg edema, Denies lightheadedness, Denies Loss of Consciousness, Denies palpitations, Reports dyspnea on exertion and Reports orthopnea Respiratory: Respiratory: Reports no additional respiratory complaints and Reports dyspnea on exertion Gastrointestinal: Gastrointestinal: Reports no additional gastrointestinal complaints Genitourinary: Genitourinary: Reports no additional male genitourinary complaints Integumentary/Breasts: Skin/Breast: Reports system reviewed and no additional complaints, except as docu Neurologic: Reports system reviewed and no additional complaints, except as documented Psychiatric: Psychiatric: Reports no additional psychiatric complaints Endocrine: Endocrine: Reports no additional endocrine complaints, Reports fatigue and Denies palpitations Hematologic/Lymphatic: Hematologic/Lymphatic: Reports no additional hematologic/lymphatic complaints [facility] Past Medical History Medical History Atrial fibrillation and flutter Cardiomyopathy Derangement of left shoulder joint Derangement of right shoulder joint Failed back syndrome, cervical Failed back syndrome, lumbar History of cardioversion Left rib fracture Lumbar spondylosis Lumbar spondylosis Persistent atrial fibrillation Family History Family History Father No problems noted. Mother No problems noted. Daughter Breast cancer Surgical History Surgical History H/O elbow surgery H/O knee surgery History of arteriography History of shoulder surgery History of spinal surgery Social History Social History Household Members: None Housing: Apartment Do you presently have visiting nurse or other home services: No Alcohol intake: never Patient Tobacco Use Status: Former Tobacco user Quit Date: 07/16/20 Cigarettes Per Day: 10 Second Hand Smoke Exposure: No Advance Directives: No Advance Directives Information Provided: Yes service: Yes Current occupational status: unemployed Meds Allergies Allergy/AdvReac Type Severity Reaction Status Date / Time duloxetine [From Cymbalta] AdvReac Intermediate GI upsets Verified 02/02/21 17:38 zolpidem [Ambien] AdvReac Intermediate sleep Verified 02/02/21 17:38 walking Active Medications: Current Medications Acetaminophen (Acetaminophen 325 Mg Tablet) 650 mg PO Q6H PRN PRN Reason: Pain, Mild (Pain Scale 1-3) Albuterol Sulfate (Albuterol Sulfate 90 Mcg 8 Gm Inhaler) 1 puff INHALE QID PRN PRN Reason: Shortness Of Breath Alprazolam (Alprazolam 0.5 Mg Tablet) 1 mg PO BEDTIME [facility] Last Admin: 02/02/21 22:37 Dose: 1 mg Documented by: Apixaban (Apixaban 5 Mg Tablet) 5 mg PO BID [facility] Last Admin: 02/03/21 09:02 Dose: 5 mg Documented by: Carvedilol (Carvedilol 6.25 Mg Tablet) 6.25 mg PO BID [facility]; Protocol Digoxin (Digoxin 0.125 Mg Tablet) 0.125 mg PO DAILY [facility] Last Admin: 02/03/21 09:02 Dose: 0.125 mg Documented by: Docusate Sodium (Docusate Sodium 100 Mg Capsule) 100 mg PO DAILY PRN PRN Reason: Constipation Furosemide 200 mg/ Sodium (Chloride) 100 mls @ 5 mls/hr IVCONT .Q20H [facility] Last Admin: 02/02/21 19:31 Dose: 10 mg/hr, 5 mls/hr Documented by: Ondansetron HCl (Ondansetron Hcl 4 Mg/2 Ml Vial) 4 mg IVPUSH Q8H PRN PRN Reason: Nausea and Vomiting Pharmacy Consult (Consult Rx Perform Med Rec) 1 each MISCELLANE ONCE PRN PRN Reason: Consult order Potassium Chloride (Potassium Chloride Packet 20 Meq Packet) 40 meq PO BID [facility] Last Admin: 02/03/21 09:02 Dose: 40 meq Documented by: Sacubitril/Valsartan (Sacubitril/Valsartan 1 Tab Tablet) 1 tab PO BID [facility]; Protocol Sodium Chloride (0.9 % Sodium Chloride Flush 3 Ml Syringe) 3 ml IVFLUSH QSHIFT [facility] Last Admin: 02/03/21 09:03 Dose: Not Given Documented by: Home Medications Medication Instructions Recorded Confirmed Last Taken Type torsemide 20 mg tablet 80 mg PO BID 06/23/20 02/02/21 02/02/21 History carvedilol 6.25 mg tablet 6.25 mg PO BID 07/23/20 02/02/21 02/02/21 History albuterol sulfate 90 mcg/actuation 1 inh INHALATION QID PRN 02/02/21 02/02/21 Unknown History aerosol inhaler (ProAir HFA) Physical Exam Vital Signs: Vital Signs: Last Vital Signs Temp 97.7 F 02/03/21 07:56 Pulse 94 02/03/21 08:31 Resp 18 02/03/21 08:31 BP 107/78 02/03/21 08:31 Pulse Ox 98 02/03/21 08:31 BMI result Body Mass Index 33.0 Const: General: cooperative, comfortable, no acute distress, alert and awake Nutritional Appearance: overweight Orientation/consciousness: patient oriented x3 HENMT: Head: Yes normocephalic and Yes atraumatic Neck: Neck: Yes trachea midline, Yes supple and Yes JVD Resp: Effort & Inspection: normal respiratory effort Auscultation: clear to auscultation bilaterally Cardio: Jugular venous distension: JVD Palpation: abnormal PMI displaced PMI Rhythm: abnormal rhythm irregularly irregular Heart sounds: S1 normal heart sound present, S2 normal heart sound present, no click, no gallops, no murmurs and no rubs GI: Inspection: Yes distended and Yes obesity Auscultation: normal bowel sounds Skin: General skin exam: no rashes or lesions noted Neuro: General: patient oriented x3 and no focal motor deficits Extrem: General: No clubbing, No cyanosis and Yes edema Psych: Appearance: grossly normal Objective Labs and Meds Result diagrams: 02/03/21 06:50 02/03/21 06:50 Lab results: Laboratory Results - last 24 hr 02/02/21 02/02/21 02/02/21 17:59 17:59 17:59 WBC 6.5 RBC 5.71 Hgb 16.1 Hct 50.8 MCV 89.0 MCH 28.2 MCHC 31.7 RDW 17.5 H Plt Count 257 MPV 9.7 Immature Gran % (Auto) 0.3 Neut % (Auto) 67.4 Lymph % (Auto) 22.3 Gem % (Auto) 8.6 Eos % (Auto) 1.1 Baso % (Auto) 0.3 Lymph # (Auto) 1.5 Gem # (Auto) 0.6 Eos # (Auto) 0.1 Baso # (Auto) 0.0 Abs Immat Gran (auto) 0.02 Absolute Neuts (auto) 4.4 Absolute Nucleated RBC 0.000 Nucleated RBC % (auto) 0.0 ESR PT 21.3 H INR 1.9 H Sodium 140 Potassium 3.6 Chloride 100 Carbon Dioxide 28 Anion Gap 16 BUN 22 H Creatinine 1.18 Estim Creat Clear Calc 90.4 Estimated GFR > 60 Random Glucose 78 D Lactic Acid Calcium 8.7 Magnesium 1.8 Total Bilirubin 1.7 H AST 40 H D ALT 32 Alkaline Phosphatase 193 H D Troponin I High Sens C-Reactive Protein 2.41 H B-Natriuretic Peptide Total Protein 7.2 Albumin 3.7 Urine Color Urine Appearance Urine pH Ur Specific [place] Urine Protein Urine Glucose (UA) Urine Ketones Urine Blood Urine Nitrite Ur Leukocyte Esterase Influenza Type A (PCR) Influenza Type B (PCR) RSV RNA Qual (PCR) SARS-CoV-2 RNA (RT-PCR) 02/02/21 02/02/21 02/02/21 17:59 17:59 17:59 WBC RBC Hgb Hct MCV MCH MCHC RDW Plt Count MPV Immature Gran % (Auto) Neut % (Auto) Lymph % (Auto) [place] % (Auto) Eos % (Auto) Baso % (Auto) Lymph # (Auto) [place] # (Auto) Eos # (Auto) Baso # (Auto) Abs Immat Gran (auto) Absolute Neuts (auto) Absolute Nucleated RBC Nucleated RBC % (auto) ESR PT INR Sodium Potassium Chloride Carbon Dioxide Anion Gap BUN Creatinine Estim Creat Clear Calc Estimated GFR Random Glucose Lactic Acid 2.0 Calcium Magnesium Total Bilirubin AST ALT Alkaline Phosphatase Troponin I High Sens 33.6 C-Reactive Protein B-Natriuretic Peptide 2695 H Total Protein Albumin Urine Color Urine Appearance Urine pH Ur Specific [place] Urine Protein Urine Glucose (UA) Urine Ketones Urine Blood Urine Nitrite Ur Leukocyte Esterase Influenza Type A (PCR) NEGATIVE Influenza Type B (PCR) NEGATIVE RSV RNA Qual (PCR) NEGATIVE SARS-CoV-2 RNA (RT-PCR) NEGATIVE 02/02/21 02/02/21 02/02/21 17:59 17:59 21:17 WBC RBC Hgb Hct MCV MCH MCHC RDW Plt Count MPV Immature Gran % (Auto) Neut % (Auto) Lymph % (Auto) Gem % (Auto) Eos % (Auto) Baso % (Auto) Lymph # (Auto) Gem # (Auto) Eos # (Auto) Baso # (Auto) Abs Immat Gran (auto) Absolute Neuts (auto) Absolute Nucleated RBC Nucleated RBC % (auto) ESR 1 PT INR Sodium Potassium Chloride Carbon Dioxide Anion Gap BUN Creatinine Estim Creat Clear Calc Estimated GFR Random Glucose Lactic Acid Calcium Magnesium Total Bilirubin AST ALT Alkaline Phosphatase Troponin I High Sens 27.2 C-Reactive Protein B-Natriuretic Peptide Total Protein Albumin Urine Color YELLOW Urine Appearance CLEAR Urine pH 6.0 Ur Specific [place] 1.015 Urine Protein NEG Urine Glucose (UA) NEG Urine Ketones NEG Urine Blood NEG Urine Nitrite NEG Ur Leukocyte Esterase NEG Influenza Type A (PCR) Influenza Type B (PCR) RSV RNA Qual (PCR) SARS-CoV-2 RNA (RT-PCR) 02/03/21 02/03/21 06:50 06:50 WBC 6.4 RBC 4.99 Hgb 14.2 Hct 43.7 MCV 87.6 MCH 28.5 MCHC 32.5 RDW 16.6 H Plt Count 214 MPV 9.9 Immature Gran % (Auto) 0.3 Neut % (Auto) 64.0 Lymph % (Auto) 21.6 Gem % (Auto) 12.3 H Eos % (Auto) 1.3 Baso % (Auto) 0.5 Lymph # (Auto) 1.4 Gem # (Auto) 0.8 Eos # (Auto) 0.1 Baso # (Auto) 0.0 Abs Immat Gran (auto) 0.02 Absolute Neuts (auto) 4.1 Absolute Nucleated RBC 0.000 Nucleated RBC % (auto) 0.0 ESR PT INR Sodium 139 Potassium 3.1 L Chloride 102 Carbon Dioxide 29 Anion Gap 11 L BUN 18 H Creatinine 1.10 Estim Creat Clear Calc 97.0 Estimated GFR > 60 Random Glucose 121 H D Lactic Acid Calcium 8.1 L D Magnesium 1.4 L* Total Bilirubin AST ALT Alkaline Phosphatase Troponin I High Sens C-Reactive Protein B-Natriuretic Peptide Total Protein Albumin Urine Color Urine Appearance Urine pH Ur Specific [place] Urine Protein Urine Glucose (UA) Urine Ketones Urine Blood Urine Nitrite Ur Leukocyte Esterase Influenza Type A (PCR) Influenza Type B (PCR) RSV RNA Qual (PCR) SARS-CoV-2 RNA (RT-PCR) Imaging Radiologist's impression: Impressions Abdomen/Pelvis CT 02/02/21 18:46 IMPRESSION: 1. No new pulmonary nodule, mass, or airspace consolidation. No pleural effusion. 2. [id number] simple-appearing ascites without organized fluid collection or abscess formation. Diffuse anasarca. 3. Stable, mildly prominent superior mediastinal lymph nodes. No new superior mediastinal, hilar, or axillary lymphadenopathy. No significant intra-abdominal or intrapelvic lymphadenopathy. 4. Bilateral simple-appearing renal cysts. Multiple additional bilateral renal hypodensities, too small to characterize. No hydronephrosis or nephrolithiasis. 5. No small or large bowel obstruction. Diverticulosis without evidence of acute diverticulitis. Unremarkable appendix. Chest CT 02/02/21 18:46 IMPRESSION: 1. No new pulmonary nodule, mass, or airspace consolidation. No pleural effusion. 2. [id number] simple-appearing ascites without organized fluid collection or abscess formation. Diffuse anasarca. 3. Stable, mildly prominent superior mediastinal lymph nodes. No new superior mediastinal, hilar, or axillary lymphadenopathy. No significant intra-abdominal or intrapelvic lymphadenopathy. 4. Bilateral simple-appearing renal cysts. Multiple additional bilateral renal hypodensities, too small to characterize. No hydronephrosis or nephrolithiasis. 5. No small or large bowel obstruction. Diverticulosis without evidence of acute diverticulitis. Unremarkable appendix. Assessment and Plan (1) Acute exacerbation of CHF (congestive heart failure): Status: Acute Patient presents with decompensated congestive heart failure, 8 months since last admission, was doing well till his living situation change in his dietary pattern change. Most likely salt retention due to the same. Clinically still appears to be fluid overloaded in knees diuresis. Continue Lasix drip. Please resume carvedilol therapy on him. Continue Entresto and digoxin. Strict intake and output chart needs to be pursued. Continue to replace electrolytes aggressively given that he has low potassium and follow them regularly. Follow renal function regularly. If his blood pressure is adequate after adding carvedilol, tomorrow will consider adding Aldactone to his regimen. May also consider given recent data addition of Jardiance to his regimen. Overall prognosis is guarded. Currently I do not think he needs inotropic support. In the long run will need to discuss about his arrhythmic risk if his ejection fraction is not improved. Repeat echocardiogram, limited to evaluate for LV systolic function. Will continue to follow with you. (2) Chronic atrial fibrillation: Status: Acute Chronic atrial fibrillation, on rate control with carvedilol and digoxin. Has failed rhythm control approach in the past. Will continue to pursue rate control with it. Maximize carvedilol therapy. Continue full oral anticoagulation, currently on Eliquis 5 mg b.i.d.. Will follow with you thank you for allowing us to partake in his care Procedures Date of Service Date of Service: 02/03/21
--- NOTE | 2021-02-03 10:55 | PC.NURSE ---
hospitalist consulted re: BP trending lower.
--- NOTE | 2021-02-03 11:08 | PC.NURSE ---
repositioned in bed. pt's bed mobility is poor. no skin breakdown noted. crackles in [place] bases. pt reports feeling tired
[2021-02-03] MEDS: Sacubitril/Valsartan 24/26 1 TAB TABLET PO ×2 (11:33→21:56)
[2021-02-03] MEDS: carvediloL 6.25 MG TABLET PO ×2 (11:34→21:43)
[2021-02-03] MEDS: Furosemide 200 MG in 0.9 % Sodium Chloride 80 ML IVCONT (14:57)
--- NOTE | 2021-02-03 15:54 | PC.NURSE ---
rn to rn with Yessica.
--- NOTE | 2021-02-03 16:46 | P.PNIM_ITS ---
Subjective Subjective Date of Service: 02/03/21 Interval History: Markedly improved on insulin drip. Diuresing well. Some cramping noted Review of Systems Denies chest pain Denies shortness of breath Denies nausea vomiting diarrhea Physical Exam Vital Signs: Vital Signs: Last Vital Signs Temp 97.7 F 02/03/21 07:56 Pulse 86 02/03/21 15:05 Resp 88 H 02/03/21 15:05 BP 100/70 02/03/21 15:05 Pulse Ox 100 02/03/21 15:05 BMI result Body Mass Index 33.0 Objective Data Active Medications Acetaminophen (Acetaminophen 325 Mg Tablet) 650 mg PO Q6H PRN PRN Reason: Pain, Mild (Pain Scale 1-3) Albuterol Sulfate (Albuterol Sulfate 90 Mcg 8 Gm Inhaler) 1 puff INHALE QID PRN PRN Reason: Shortness Of Breath Alprazolam (Alprazolam 0.5 Mg Tablet) 1 mg PO BEDTIME [facility] Last Admin: 02/02/21 22:37 Dose: 1 mg Documented by: BRENNEN Apixaban (Apixaban 5 Mg Tablet) 5 mg PO BID [facility] Last Admin: 02/03/21 09:02 Dose: 5 mg Documented by: JACQUELINE Carvedilol (Carvedilol 6.25 Mg Tablet) 6.25 mg PO BID [facility]; Protocol Last Admin: 02/03/21 11:34 Dose: 6.25 mg Documented by: JACQUELINE Digoxin (Digoxin 0.125 Mg Tablet) 0.125 mg PO DAILY [facility] Last Admin: 02/03/21 09:02 Dose: 0.125 mg Documented by: JACQUELINE Docusate Sodium (Docusate Sodium 100 Mg Capsule) 100 mg PO DAILY PRN PRN Reason: Constipation Furosemide 200 mg/ Sodium (Chloride) 100 mls @ 5 mls/hr IVCONT .Q20H [facility] Last Admin: 02/03/21 14:57 Dose: 10 mg/hr, 5 mls/hr Documented by: JACQUELINE Ondansetron HCl (Ondansetron Hcl 4 Mg/2 Ml Vial) 4 mg IVPUSH Q8H PRN PRN Reason: Nausea and Vomiting Pharmacy Consult (Consult Rx Perform Med Rec) 1 each MISCELLANE ONCE PRN PRN Reason: Consult order Potassium Chloride (Potassium Chloride Packet 20 Meq Packet) 40 meq PO BID [facility] Last Admin: 02/03/21 09:02 Dose: 40 meq Documented by: JACQUELINE Sacubitril/Valsartan (Sacubitril/Valsartan 1 Tab Tablet) 1 tab PO BID [facility]; Protocol Last Admin: 02/03/21 11:33 Dose: 1 tab Documented by: JACQUELINE Sodium Chloride (0.9 % Sodium Chloride Flush 3 Ml Syringe) 3 ml IVFLUSH QSHIFT [facility] Last Admin: 02/03/21 15:05 Dose: Not Given Documented by: JACQUELINE Non-Admin Reason: Med Not Available Labs CBC & Chem 7: 02/03/21 06:50 02/03/21 06:50 Labs: Laboratory Results - last 24 hr 02/02/21 02/02/21 02/02/21 17:59 17:59 17:59 MCV 89.0 MCH 28.2 MCHC 31.7 RDW 17.5 H Plt Count 257 MPV 9.7 Immature Gran % (Auto) 0.3 Neut % (Auto) 67.4 Lymph % (Auto) 22.3 [place] % (Auto) 8.6 Eos % (Auto) 1.1 Baso % (Auto) 0.3 Lymph # (Auto) 1.5 [place] # (Auto) 0.6 Eos # (Auto) 0.1 Baso # (Auto) 0.0 Abs Immat Gran (auto) 0.02 Absolute Neuts (auto) 4.4 Absolute Nucleated RBC 0.000 Nucleated RBC % (auto) 0.0 ESR PT 21.3 H INR 1.9 H Anion Gap 16 Estim Creat Clear Calc 90.4 Estimated GFR > 60 Random Glucose 78 D Lactic Acid Calcium 8.7 Magnesium 1.8 Total Bilirubin 1.7 H AST 40 H D ALT 32 Alkaline Phosphatase 193 H D Troponin I High Sens C-Reactive Protein 2.41 H B-Natriuretic Peptide Total Protein 7.2 Albumin 3.7 Urine Color Urine Appearance Urine pH Ur Specific [place] Urine Protein Urine Glucose (UA) Urine Ketones Urine Blood Urine Nitrite Ur Leukocyte Esterase Influenza Type A (PCR) Influenza Type B (PCR) RSV RNA Qual (PCR) SARS-CoV-2 RNA (RT-PCR) 02/02/21 02/02/21 02/02/21 17:59 17:59 17:59 MCV MCH MCHC RDW Plt Count MPV Immature Gran % (Auto) Neut % (Auto) Lymph % (Auto) [place] % (Auto) Eos % (Auto) Baso % (Auto) Lymph # (Auto) [place] # (Auto) Eos # (Auto) Baso # (Auto) Abs Immat Gran (auto) Absolute Neuts (auto) Absolute Nucleated RBC Nucleated RBC % (auto) ESR PT INR Anion Gap Estim Creat Clear Calc Estimated GFR Random Glucose Lactic Acid 2.0 Calcium Magnesium Total Bilirubin AST ALT Alkaline Phosphatase Troponin I High Sens 33.6 C-Reactive Protein B-Natriuretic Peptide 2695 H Total Protein Albumin Urine Color Urine Appearance Urine pH Ur Specific [place] Urine Protein Urine Glucose (UA) Urine Ketones Urine Blood Urine Nitrite Ur Leukocyte Esterase Influenza Type A (PCR) NEGATIVE Influenza Type B (PCR) NEGATIVE RSV RNA Qual (PCR) NEGATIVE SARS-CoV-2 RNA (RT-PCR) NEGATIVE 02/02/21 02/02/21 02/02/21 17:59 17:59 21:17 MCV MCH MCHC RDW Plt Count MPV Immature Gran % (Auto) Neut % (Auto) Lymph % (Auto) [place] % (Auto) Eos % (Auto) Baso % (Auto) Lymph # (Auto) [place] # (Auto) Eos # (Auto) Baso # (Auto) Abs Immat Gran (auto) Absolute Neuts (auto) Absolute Nucleated RBC Nucleated RBC % (auto) ESR 1 PT INR Anion Gap Estim Creat Clear Calc Estimated GFR Random Glucose Lactic Acid Calcium Magnesium Total Bilirubin AST ALT Alkaline Phosphatase Troponin I High Sens 27.2 C-Reactive Protein B-Natriuretic Peptide Total Protein Albumin Urine Color YELLOW Urine Appearance CLEAR Urine pH 6.0 Ur Specific [place] 1.015 Urine Protein NEG Urine Glucose (UA) NEG Urine Ketones NEG Urine Blood NEG Urine Nitrite NEG Ur Leukocyte Esterase NEG Influenza Type A (PCR) Influenza Type B (PCR) RSV RNA Qual (PCR) SARS-CoV-2 RNA (RT-PCR) 02/03/21 02/03/21 06:50 06:50 MCV 87.6 MCH 28.5 MCHC 32.5 RDW 16.6 H Plt Count 214 MPV 9.9 Immature Gran % (Auto) 0.3 Neut % (Auto) 64.0 Lymph % (Auto) 21.6 [place] % (Auto) 12.3 H Eos % (Auto) 1.3 Baso % (Auto) 0.5 Lymph # (Auto) 1.4 [place] # (Auto) 0.8 Eos # (Auto) 0.1 Baso # (Auto) 0.0 Abs Immat Gran (auto) 0.02 Absolute Neuts (auto) 4.1 Absolute Nucleated RBC 0.000 Nucleated RBC % (auto) 0.0 ESR PT INR Anion Gap 11 L Estim Creat Clear Calc 97.0 Estimated GFR > 60 Random Glucose 121 H D Lactic Acid Calcium 8.1 L D Magnesium 1.4 L* Total Bilirubin AST ALT Alkaline Phosphatase Troponin I High Sens C-Reactive Protein B-Natriuretic Peptide Total Protein Albumin Urine Color Urine Appearance Urine pH Ur Specific [place] Urine Protein Urine Glucose (UA) Urine Ketones Urine Blood Urine Nitrite Ur Leukocyte Esterase Influenza Type A (PCR) Influenza Type B (PCR) RSV RNA Qual (PCR) SARS-CoV-2 RNA (RT-PCR) Assessment and Plan (1) Acute exacerbation of CHF (congestive heart failure): Status: Acute (2) Chronic atrial fibrillation: Status: Acute Assessment and Plan: This is a 60-year-old male with past medical history of CHF with ejection fraction less than 10% presents to the hospital with orthopnea, PND, shortness of breath... Improving on insulin drip 1.Acute Systolic CHF exacerbation Ejection fraction of less than 10% Continue Lasix gtt as ordered Follow divalents and replete as indicated 2. Chronic AFib...rate controled Eliquis and carvedilol DVT prophylaxis:? Eliquis Quality Stroke Does the patient have a stroke diagnosis?: No VTE Prior VTE?: No VTE Risk Level:: Medical - moderate - high VTE Device Contraindication: Treatment Not Indicated VTE Drug Contraindication: N/A - Med Ordered
--- NOTE | 2021-02-03 18:09 | PC.NURSE ---
Pt sitting on side of bed, A&Ox3, Lungs with crackles in the bases, pt offers no complaint of pain,states he is just tired at this time. Vs as charted. NSR in the 80's with occasional PVC's on the monitor. Call cifuentes and urinals within reach, will contiue to monitor.
[2021-02-03] MEDS: Magnesium Sulfate/H2O 2 GM/50 ML PIGGYBACK IV (21:43)
[2021-02-03] MEDS: ALPRAZolam 0.5 MG TABLET 1 MG PO (21:58)
[2021-02-04] VITALS (10 sets, daily range): BP systolic 91–154; BP diastolic 47–79; PULSE 78–98; RESP 16–20; O2SAT 94–100
[2021-02-04] MEDS: Gabapentin 100 MG CAPSULE PO (00:41)
--- NOTE | 2021-02-04 06:26 | PC.NURSE ---
full set of vitals deferred to promote sleep hygiene, pt remains attached to manager cardiac cath, even and non-labored resps noted
[2021-02-04 07:00] LABS: MANUAL DIFF FLAG NO
[2021-02-04 07:06] LABS: Basophils Absolute Auto 0.1 X10*3/uL (0.0-0.2); Basophils Percent Auto 0.9 % (0-2); Eosinophils Absolute Auto 0.1 X10*3/uL (0.0-0.4); Eosinophils Percent Auto 1.7 % (0-4); Hematocrit 47.5 % (42.0-52.0); Hemoglobin 15.2 g/dl (14.0-18.0); Imm Gran Abs Auto 0.01 X10*3/uL (0.00-0.03); Imm Gran Pct Auto 0.2 % (0.0-0.4); Lymphocytes Absolute Auto 1.9 X10*3/uL (1.2-4.9); Lymphocytes Percent Auto 32.4 % (20-40); Mean Corpuscular Hemoglobin 28.1 pg (27.0-33.0); Mean Platelet Volume 9.8 fL (9.4-12.4); Monocytes Absolute Auto 0.7 X10*3/uL (0.1-1.2); Monocytes Percent Auto 12.1 % (2-11); Neutrophils Absolute Auto 3.1 x10*3/uL (2.0-8.3); Neutrophils Percent Auto 52.7 % (45-73); Platelet Count 237 X10*3/uL (160-400); Red Cell Distribution Width 17.1 % (11.0-16.0); White Blood Count 5.9 X10*3/uL (4.8-10.8)
[2021-02-04 07:26] LABS: Alanine Aminotransferase 24 U/L (0-40); Albumin Level 3.3 g/dL (3.5-5.0); Alkaline Phosphatase 159 U/L (39-117); Anion Gap 12 (12-20); Aspartate Amino Transferase 32 U/L (5-37); Bilirubin Total 1.4 mg/dL (0.0-1.0); Blood Urea Nitrogen 14 mg/dL (9-16); Calcium 8.2 mg/dL (8.4-10.2); Carbon Dioxide 32 mmol/L (22-29); Chloride 99 mmol/L (96-108); Creatinine Clr Calc Pharmacy 112.3; Estimated Glomerular Filt Rate > 60; Glucose Fasting 96 mg/dL (60-99); Magnesium 1.5 mg/dL (1.6-2.6); Potassium 3.5 mmol/L (3.3-5.1); Sodium 139 mmol/L (135-145); Total Protein 6.4 g/dL (6.5-8.0)
[2021-02-04] MEDS: Furosemide 200 MG in 0.9 % Sodium Chloride 80 ML IVCONT ×2 (09:11→11:00)
[2021-02-04] MEDS: Magnesium Sulfate/H2O 2 GM/50 ML PIGGYBACK IV (09:11)
[2021-02-04] MEDS: Potassium Chloride Packet 20 MEQ PACKET 40 MEQ PO ×2 (09:32→21:53)
[2021-02-04] MEDS: Apixaban 5 MG TABLET PO ×2 (09:32→21:50)
[2021-02-04] MEDS: Digoxin 0.125 MG TABLET PO (09:33)
[2021-02-04] MEDS: carvediloL 6.25 MG TABLET PO ×2 (09:50→22:59)
--- NOTE | 2021-02-04 09:52 | PC.NURSE ---
MD Rosario made aware of pt's morning vitals and BP 93/47. Verbal order received to give one ordered BP medication and hold the other for 1 additional hour. As per pt is at baseline. RN will continnue to monitor.
--- NOTE | 2021-02-04 10:13 | P.PNCA_ITS ---
Subjective Subjective Date of Service: 02/04/21 Principal diagnosis: Congestive heart failure Interval history: Patient breathing better has diuresed overall-7.5 L. still has leg edema. Still some shortness of breath. Remains in bed. Remains in atrial fibrillation. Currently getting magnesium through the IV and complaining of pain at the IV site. Review of Systems Constitutional: Reports fatigue Cardiovascular: Denies rapid heart rate, Denies lightheadedness and Reports d yspnea on exertion Respiratory: Reports no additional respiratory complaints and Reports dyspnea on exertion Gastrointestinal: Reports no additional gastrointestinal complaints Genitourinary: Reports no additional male genitourinary complaints Skin/Breast: Reports system reviewed and no additional complaints, except as docu Reports system reviewed and no additional complaints, except as documented Endocrine: Reports fatigue Physical Exam Vital Signs: Last Vital Signs Temp 97.6 F 02/03/21 18:33 Pulse 78 02/04/21 09:33 Resp 16 02/04/21 09:01 BP 93/47 L 02/04/21 09:01 Pulse Ox 97 02/04/21 06:33 BMI result Body Mass Index 33.0 Objective Labs and Meds Result diagrams: 02/04/21 06:50 02/04/21 06:50 Lab results: Laboratory Results - last 24 hr 02/04/21 02/04/21 06:50 06:50 WBC 5.9 RBC 5.40 Hgb 15.2 Hct 47.5 MCV 88.0 MCH 28.1 MCHC 32.0 RDW 17.1 H Plt Count 237 MPV 9.8 Immature Gran % (Auto) 0.2 Neut % (Auto) 52.7 Lymph % (Auto) 32.4 Lucas % (Auto) 12.1 H Eos % (Auto) 1.7 Baso % (Auto) 0.9 Lymph # (Auto) 1.9 Lucas # (Auto) 0.7 Eos # (Auto) 0.1 Baso # (Auto) 0.1 Abs Immat Gran (auto) 0.01 Absolute Neuts (auto) 3.1 Absolute Nucleated RBC 0.000 Nucleated RBC % (auto) 0.0 Sodium 139 Potassium 3.5 Chloride 99 Carbon Dioxide 32 H Anion Gap 12 BUN 14 Creatinine 0.95 Estim Creat Clear Calc 112.3 Estimated GFR > 60 Fasting Glucose 96 Calcium 8.2 L Magnesium 1.5 L Total Bilirubin 1.4 H AST 32 ALT 24 Alkaline Phosphatase 159 H Total Protein 6.4 L Albumin 3.3 L Progress Note: A&P Assessment and plan (1) Acute exacerbation of CHF (congestive heart failure): Status: Acute Assessment and Plan: Patient is been diuresing significantly over the last 2 days. Reduce diuretic rate of Lasix to 5 mg an hour. Continue strict intake and output chart. He is responding well therapy. Blood pressure is on the lower side. Continue carvedilol, Entresto, digoxin. Will hold off on adding spironolactone due to low blood pressure. If his blood pressure is better tomorrow will consider adding low-dose Aldactone to his regimen for both neurohormonal modulation as well as heart failure management. Heart of bed to chair. CHF education needs to be provided. Social work consult for living situation needs to be pursued as well. (2) Chronic atrial fibrillation: Status: Acute Assessment and Plan: Chronic atrial fibrillation has failed rhythm control in the past. Continue rate control with carvedilol and digoxin. Continue full oral anticoagulation with Eliquis. Will continue to follow with you Fall Risk Details Current Medications: Current Medications Acetaminophen (Acetaminophen 325 Mg Tablet) 650 mg PO Q6H PRN PRN Reason: Pain, Mild (Pain Scale 1-3) Albuterol Sulfate (Albuterol Sulfate 90 Mcg 8 Gm Inhaler) 1 puff INHALE QID PRN PRN Reason: Shortness Of Breath Alprazolam (Alprazolam 0.5 Mg Tablet) 1 mg PO BEDTIME [facility] Last Admin: 02/03/21 21:58 Dose: 1 mg Documented by: Apixaban (Apixaban 5 Mg Tablet) 5 mg PO BID [facility] Last Admin: 02/04/21 09:32 Dose: 5 mg Documented by: Carvedilol (Carvedilol 6.25 Mg Tablet) 6.25 mg PO BID [facility]; Protocol Last Admin: 02/04/21 09:50 Dose: 6.25 mg Documented by: Digoxin (Digoxin 0.125 Mg Tablet) 0.125 mg PO DAILY [facility] Last Admin: 02/04/21 09:33 Dose: 0.125 mg Documented by: Docusate Sodium (Docusate Sodium 100 Mg Capsule) 100 mg PO DAILY PRN PRN Reason: Constipation Magnesium Sulfate (Magnesium Sulfate/H2o) 2 gm in 50 mls @ 25 mls/hr IV ONCE ONE Stop: 02/04/21 10:37 Last Admin: 02/04/21 09:11 Dose: 25 mls/hr Documented by: Furosemide 200 mg/ Sodium (Chloride) 100 mls @ 2.5 mls/hr IVCONT .Q24H [facility] Ondansetron HCl (Ondansetron Hcl 4 Mg/2 Ml Vial) 4 mg IVPUSH Q8H PRN PRN Reason: Nausea and Vomiting Pharmacy Consult (Consult Rx Perform Med Rec) 1 each MISCELLANE ONCE PRN PRN Reason: Consult order Potassium Chloride (Potassium Chloride Packet 20 Meq Packet) 40 meq PO BID [facility] Last Admin: 02/04/21 09:32 Dose: 40 meq Documented by: Sacubitril/Valsartan (Sacubitril/Valsartan 1 Tab Tablet) 1 tab PO BID [facility]; Protocol Last Admin: 02/03/21 21:56 Dose: 1 tab Documented by: Sodium Chloride (0.9 % Sodium Chloride Flush 3 Ml Syringe) 3 ml IVFLUSH QSHIFT [facility] Last Admin: 02/04/21 09:03 Dose: Not Given Documented by: Time Spent With Patient Time: Total time spent is greater than 50% in coordination of care (as documented) at patient's floor/unit and/or counseling patient: Time with patient: 15 - 24 minutes Progress Note: Quality Stroke Does the patient have a stroke diagnosis?: No Procedures Date of Service Date of Service: 02/04/21
--- NOTE | 2021-02-04 11:14 | PC.NURSE ---
Pt received this morning from night manager: Pt AOX4 in no noted actute distress. Controlled A.Fib on monitor. Lungs noted to have mild to moderte rales. B/L LE 2-3+ pitted edema. Pt abd round and non-tender.
[2021-02-04] MEDS: Sacubitril/Valsartan 24/26 1 TAB TABLET PO ×2 (11:45→22:59)
--- NOTE | 2021-02-04 15:33 | P.PNIM_ITS ---
Subjective Subjective Date of Service: 02/04/21 Interval History: Feels much improved. Continues to diurese well. ..-7.5 L overall Review of Systems Denies chest pain Denies shortness of breath Denies nausea vomiting diarrhea Physical Exam Vital Signs: Vital Signs: Last Vital Signs Temp 97.6 F 02/03/21 18:33 Pulse 96 02/04/21 14:42 Resp 19 02/04/21 14:42 BP 94/60 02/04/21 14:42 Pulse Ox 97 02/04/21 14:42 BMI result Body Mass Index 33.0 Const: Other: No acute distress. Lying flat speaking full sentences Resp: Other: Clear to auscultation bilaterally no rales rhonchi wheezes Cardio: Other: No S4 ; positive S1-S2; no S3 murmurs rubs or gallops Extrem: Other: Difficulty opening edema bilaterally Objective Data Active Medications Acetaminophen (Acetaminophen 325 Mg Tablet) 650 mg PO Q6H PRN PRN Reason: Pain, Mild (Pain Scale 1-3) Albuterol Sulfate (Albuterol Sulfate 90 Mcg 8 Gm Inhaler) 1 puff INHALE QID PRN PRN Reason: Shortness Of Breath Alprazolam (Alprazolam 0.5 Mg Tablet) 1 mg PO BEDTIME [facility] Last Admin: 02/03/21 21:58 Dose: 1 mg Documented by: CHRISTAL Apixaban (Apixaban 5 Mg Tablet) 5 mg PO BID [facility] Last Admin: 02/04/21 09:32 Dose: 5 mg Documented by: CRISSY Carvedilol (Carvedilol 6.25 Mg Tablet) 6.25 mg PO BID [facility]; Protocol Last Admin: 02/04/21 09:50 Dose: 6.25 mg Documented by: CRISSY Digoxin (Digoxin 0.125 Mg Tablet) 0.125 mg PO DAILY [facility] Last Admin: 02/04/21 09:33 Dose: 0.125 mg Documented by: CRISSY Docusate Sodium (Docusate Sodium 100 Mg Capsule) 100 mg PO DAILY PRN PRN Reason: Constipation Furosemide 200 mg/ Sodium (Chloride) 100 mls @ 2.5 mls/hr IVCONT .Q24H [facility] Last Admin: 02/04/21 11:00 Dose: 5 mg/hr, 2.5 mls/hr Documented by: CRISSY Ondansetron HCl (Ondansetron Hcl 4 Mg/2 Ml Vial) 4 mg IVPUSH Q8H PRN PRN Reason: Nausea and Vomiting Pharmacy Consult (Consult Rx Perform Med Rec) 1 each MISCELLANE ONCE PRN PRN Reason: Consult order Potassium Chloride (Potassium Chloride Packet 20 Meq Packet) 40 meq PO BID [facility] Last Admin: 02/04/21 09:32 Dose: 40 meq Documented by: CRISSY Sacubitril/Valsartan (Sacubitril/Valsartan 1 Tab Tablet) 1 tab PO BID [facility]; Protocol Last Admin: 02/04/21 11:45 Dose: 1 tab Documented by: CRISSY Sodium Chloride (0.9 % Sodium Chloride Flush 3 Ml Syringe) 3 ml IVFLUSH QSHIFT [facility] Last Admin: 02/04/21 09:03 Dose: Not Given Documented by: CRISSY Non-Admin Reason: Med Not Available Labs CBC & Chem 7: 02/04/21 06:50 02/04/21 06:50 Labs: Laboratory Results - last 24 hr 02/04/21 02/04/21 06:50 06:50 MCV 88.0 MCH 28.1 MCHC 32.0 RDW 17.1 H Plt Count 237 MPV 9.8 Immature Gran % (Auto) 0.2 Neut % (Auto) 52.7 Lymph % (Auto) 32.4 [place] % (Auto) 12.1 H Eos % (Auto) 1.7 Baso % (Auto) 0.9 Lymph # (Auto) 1.9 [place] # (Auto) 0.7 Eos # (Auto) 0.1 Baso # (Auto) 0.1 Abs Immat Gran (auto) 0.01 Absolute Neuts (auto) 3.1 Absolute Nucleated RBC 0.000 Nucleated RBC % (auto) 0.0 Anion Gap 12 Estim Creat Clear Calc 112.3 Estimated GFR > 60 Fasting Glucose 96 Calcium 8.2 L Magnesium 1.5 L Total Bilirubin 1.4 H AST 32 ALT 24 Alkaline Phosphatase 159 H Total Protein 6.4 L Albumin 3.3 L Microbiology Microbiology Results: Microbiology 02/02/21 17:59 Blood Culture - Preliminary Blood - Venous No growth after 24 hours. 12/13/21 17:59 Blood Culture - Preliminary Blood - Venous No growth after 24 hours. Assessment and Plan (1) Acute exacerbation of CHF (congestive heart failure): Status: Acute (2) Chronic atrial fibrillation: Status: Acute Assessment and Plan: This is a 60-year-old male with past medical history of CHF with ejection fraction less than 10% presents to the hospital with orthopnea, PND, shortness of breath... Improving on insulin drip 1.Acute Systolic CHF exacerbation Ejection fraction of less than 10% Lasix drip decreased to 5 mg an hour Follow divalents and replete as indicated 2. Chronic AFib...rate controled Eliquis and carvedilol DVT prophylaxis:? Eliquis Quality Stroke Does the patient have a stroke diagnosis?: No VTE Prior VTE?: No VTE Risk Level:: Medical - moderate - high VTE Device Contraindication: Treatment Not Indicated VTE Drug Contraindication: N/A - Med Ordered
--- NOTE | 2021-02-04 19:30 | PC.NURSE ---
Assumed care of pt from ADITYA Ortiz Pt sitting on side of bed after shower Pt eating dinner Pt requesting for a second dinner tray Pt given extra pudding Will continue to monitor
--- NOTE | 2021-02-04 21:00 | PC.NURSE ---
Pt BP 91/[address] Krishnan paged to hold pt's coreg and valsartan. Awaiting reply
[2021-02-04] MEDS: ALPRAZolam 0.5 MG TABLET 1 MG PO (21:51)
--- NOTE | 2021-02-04 23:00 | PC.NURSE ---
Pt medicated per APR BP tolerating A. fib on monitor with HR 90s
[2021-02-05] VITALS (11 sets, daily range): BP systolic 74–103; BP diastolic 41–74; PULSE 81–105; RESP 15–22; TEMP 36.2–36.6; O2SAT 93–100
--- NOTE | 2021-02-05 00:34 | PC.NURSE ---
Pt had a run of VTach on monitor Pt resting with eyes closed. Pt aroused and denies any chest pain. Pt states I just feel tired. I don't feel good. Pt back on A fib, rate controlled at HR 90s. Dr. Redman made aware EKG being obtained currently
--- NOTE | 2021-02-05 00:43 | ECG_ITS ---
Test Reason : VTACH Blood Pressure : / mmHG Vent. Rate : 095 BPM Atrial Rate : 000 BPM P-R Int : 000 ms QRS Dur : 108 ms QT Int : 326 ms P-R-T Axes : 000 -24 119 degrees QTc Int : 409 ms Atrial fibrillation Anterolateral infarct (cited on or before 11-JAN-2020) Abnormal ECG When compared with ECG of 02-FEB-2021 18:20, T wave inversion less evident in Lateral leads QT has shortened Referred By: Eun Robles Electronically Signed By:TABITHA BIGGS MD
[2021-02-05] MEDS: diphenhydrAMINE HCL 50 MG/ML VIAL 25 MG IVPUSH (01:13)
[2021-02-05 01:44] LABS: Anion Gap 11 (12-20); Blood Urea Nitrogen 20 mg/dL (9-16); Calcium 8.1 mg/dL (8.4-10.2); Carbon Dioxide 29 mmol/L (22-29); Chloride 102 mmol/L (96-108); Creatinine Clr Calc Pharmacy 88.2; Estimated Glomerular Filt Rate > 60; Glucose Random 141 mg/dL (60-115); Magnesium 1.6 mg/dL (1.6-2.6); Sodium 138 mmol/L (135-145)
--- NOTE | 2021-02-05 02:31 | PC.NURSE ---
Pt had another run of Vtach on monitor Pt was asleep Pt arousable Denies any chest pain or SOB. Pt states I'm tired. Dr. Krishnan made aware. Per Dr. Krishnan, no need for EKG and just monitor patient. Pt back on A fib, rate controleld with HR 90s
--- NOTE | 2021-02-05 04:41 | PC.NURSE ---
Pt had a nother 7 beat run of Vtach followed. Pt resting on stretcher on his side Pt arousable No pain or shortness of breath Pt back on a.fib with HR 80s - 90s Dr. Krishnan made aware
[2021-02-05] MEDS: Gabapentin 100 MG CAPSULE 200 MG PO (04:59)
--- NOTE | 2021-02-05 05:12 | PC.NURSE ---
Pt had another 8 beat run of Vtach, per ADITYA Farr Pt was awake Pt denies any palpitations or chest pain or shortness of breath. Per pt, I just have the spasms on my leg. Dr. Krishnan made aware.
--- NOTE | 2021-02-05 06:01 | PM.EVENT ---
Event Note Date of Service: 02/05/21 Event Note: pt had mucltiple episodes of v-tach throuhgout the night. ranging between 5s-10s. Pt was asymptomatic through these episodes. labs checked showed normal levels of K and Mag
[2021-02-05 06:27] LABS: MANUAL DIFF FLAG NO
[2021-02-05 06:29] LABS: Basophils Percent Auto 0.7 % (0-2); Eosinophils Absolute Auto 0.1 X10*3/uL (0.0-0.4); Eosinophils Percent Auto 1.4 % (0-4); Hematocrit 45.1 % (42.0-52.0); Hemoglobin 14.4 g/dl (14.0-18.0); Imm Gran Abs Auto 0.02 X10*3/uL (0.00-0.03); Imm Gran Pct Auto 0.3 % (0.0-0.4); Lymphocytes Absolute Auto 1.7 X10*3/uL (1.2-4.9); Lymphocytes Percent Auto 28.1 % (20-40); Mean Corpuscular HGB Conc 31.9 g/dl (31.0-36.0); Mean Corpuscular Hemoglobin 27.8 pg (27.0-33.0); Mean Corpuscular Volume 87.1 fL (80.0-98.0); Mean Platelet Volume 9.7 fL (9.4-12.4); Monocytes Absolute Auto 0.8 X10*3/uL (0.1-1.2); Monocytes Percent Auto 13.7 % (2-11); Neutrophils Absolute Auto 3.3 x10*3/uL (2.0-8.3); Neutrophils Percent Auto 55.8 % (45-73); Platelet Count 218 X10*3/uL (160-400); Red Blood Count 5.18 X10*6/uL (4.60-5.80); Red Cell Distribution Width 16.9 % (11.0-16.0); White Blood Count 5.9 X10*3/uL (4.8-10.8)
[2021-02-05 06:47] LABS: Alanine Aminotransferase 22 U/L (0-40); Albumin Level 3.1 g/dL (3.5-5.0); Alkaline Phosphatase 144 U/L (39-117); Anion Gap 12 (12-20); Aspartate Amino Transferase 29 U/L (5-37); Bilirubin Total 1.3 mg/dL (0.0-1.0); Blood Urea Nitrogen 22 mg/dL (9-16); Calcium 8.3 mg/dL (8.4-10.2); Carbon Dioxide 28 mmol/L (22-29); Chloride 103 mmol/L (96-108); Estimated Glomerular Filt Rate > 60; Glucose Fasting 95 mg/dL (60-99); Magnesium 1.6 mg/dL (1.6-2.6); Potassium 4.1 mmol/L (3.3-5.1); Sodium 139 mmol/L (135-145); Total Protein 5.9 g/dL (6.5-8.0)
[2021-02-05 06:48] LABS: B Type Natriuretic Peptide 2534 pg/mL (<100)
[2021-02-05] MEDS: carvediloL 6.25 MG TABLET PO (09:05)
[2021-02-05] MEDS: Apixaban 5 MG TABLET PO ×2 (09:06→21:39)
[2021-02-05] MEDS: Potassium Chloride Packet 20 MEQ PACKET 40 MEQ PO ×2 (09:06→21:37)
[2021-02-05] MEDS: Digoxin 0.125 MG TABLET PO (09:06)
--- NOTE | 2021-02-05 10:15 | P.PNCA_ITS ---
Subjective Subjective Date of Service: 02/05/21 Principal diagnosis: Congestive heart failure Interval history: Patient complains of feeling tired. Says has not slept over few days. Drifting off to sleep, not interested in talking. Says his shortness of breath or. Has diuresed overall 8 L. Blood pressure borderline on the lower side. Also noted to have nonsustained VT last night, monomorphic few runs. No symptoms related to it. Review of Systems Constitutional: Reports fatigue and Reports malaise Cardiovascular: Reports no additional cardiovascular complaints Respiratory: Reports no additional respiratory complaints Gastrointestinal: Reports no additional gastrointestinal complaints Genitourinary: Reports no additional male genitourinary complaints Musculoskeletal: Reports no additional musculoskeletal complaints Skin/Breast: Reports system reviewed and no additional complaints, except as docu Reports system reviewed and no additional complaints, except as documented Psychiatric: Reports no additional psychiatric complaints Endocrine: Reports no additional endocrine complaints and Reports fatigue Physical Exam Vital Signs: Last Vital Signs Temp 97.2 F 02/05/21 08:52 Pulse 93 02/05/21 09:06 Resp 18 02/05/21 08:52 BP 95/70 02/05/21 09:05 Pulse Ox 97 02/05/21 08:52 BMI result Body Mass Index 33.0 Const General: no acute distress, alert, awake, lethargic and tired appearing Nutritional Appearance: overweight Orientation/consciousness: lethargic Neck Neck: Yes trachea midline, Yes supple and Yes no JVD Resp Effort & Inspection: normal respiratory effort Auscultation: clear to auscultation bilaterally Cardio Jugular venous distension: JVD Palpation: abnormal PMI displaced PMI Rate: regular rate Rhythm: abnormal rhythm irregularly irregular Heart sounds: S1 normal heart sound present, S2 normal heart sound present, no click, no gallops and no murmurs GI Auscultation: normal bowel sounds Skin General skin exam: no rashes or lesions noted and ecchymosis Neuro General: no focal motor deficits Extrem General: No clubbing, No cyanosis and Yes edema Objective Labs and Meds Result diagrams: 02/05/21 06:10 02/05/21 06:10 Lab results: Laboratory Results - last 24 hr 02/05/21 02/05/21 02/05/21 01:21 06:10 06:10 WBC RBC Hgb Hct MCV MCH MCHC RDW Plt Count MPV Immature Gran % (Auto) Neut % (Auto) Lymph % (Auto) [place] % (Auto) Eos % (Auto) Baso % (Auto) Lymph # (Auto) [place] # (Auto) Eos # (Auto) Baso # (Auto) Abs Immat Gran (auto) Absolute Neuts (auto) Absolute Nucleated RBC Nucleated RBC % (auto) Sodium 138 139 Potassium 4.0 4.1 Chloride 102 103 Carbon Dioxide 29 28 Anion Gap 11 L 12 BUN 20 H 22 H Creatinine 1.21 1.10 Estim Creat Clear Calc 88.2 97.0 Estimated GFR > 60 > 60 Random Glucose 141 H Fasting Glucose 95 Calcium 8.1 L 8.3 L Magnesium 1.6 1.6 Total Bilirubin 1.3 H AST 29 ALT 22 Alkaline Phosphatase 144 H B-Natriuretic Peptide 2534 H Total Protein 5.9 L Albumin 3.1 L 02/05/21 06:10 WBC 5.9 RBC 5.18 Hgb 14.4 Hct 45.1 MCV 87.1 MCH 27.8 MCHC 31.9 RDW 16.9 H Plt Count 218 MPV 9.7 Immature Gran % (Auto) 0.3 Neut % (Auto) 55.8 Lymph % (Auto) 28.1 [place] % (Auto) 13.7 H Eos % (Auto) 1.4 Baso % (Auto) 0.7 Lymph # (Auto) 1.7 [place] # (Auto) 0.8 Eos # (Auto) 0.1 Baso # (Auto) 0.0 Abs Immat Gran (auto) 0.02 Absolute Neuts (auto) 3.3 Absolute Nucleated RBC 0.000 Nucleated RBC % (auto) 0.0 Sodium Potassium Chloride Carbon Dioxide Anion Gap BUN Creatinine Estim Creat Clear Calc Estimated GFR Random Glucose Fasting Glucose Calcium Magnesium Total Bilirubin AST ALT Alkaline Phosphatase B-Natriuretic Peptide Total Protein Albumin Progress Note: A&P Assessment and plan (1) Acute exacerbation of CHF (congestive heart failure): Status: Acute Assessment and Plan: Decompensated congestive heart failure, improving. Overall 8 L of negative balance since admission. Patient blood pressure is on the lower side. Cannot further maximize his neurohormonal modulation. Continue Lasix drip for 1 more day. Will also hold off on adding Aldactone given his lower blood pressure. Please continue to give him is Coreg and Entresto. Out of bed to chair and ambulate as tolerated. Case management consult for living situation. CHF education needs to be provided. Obtain BNP tomorrow for planning purposes and if he is doing better can be discharged home hopefully tomorrow. (2) Nonsustained ventricular tachycardia: Status: Acute Assessment and Plan: Noted nonsustained ventricular tachycardia on monitoring. Please check electrolytes and make sure there replace with magnesium above 2 and potassium above 4. Given his significant cardiomyopathy, as likely to have nonsustained ventricular tachycardia on a higher risk for arrhythmic sudden cardiac that. Will set him up for external vest defibrillator. Will require internal defibrillator, after echocardiogram, can be done as outpatient. (3) Chronic atrial fibrillation: Status: Acute Assessment and Plan: Chronic atrial fibrillation, borderline rate control. Continue carvedilol and digoxin therapy. Continue full oral anticoagulation, currently on Eliquis 5 mg b.i.d.. Will continue to follow with you Fall Risk Details Current Medications: Current Medications Acetaminophen (Acetaminophen 325 Mg Tablet) 650 mg PO Q6H PRN PRN Reason: Pain, Mild (Pain Scale 1-3) Albuterol Sulfate (Albuterol Sulfate 90 Mcg 8 Gm Inhaler) 1 puff INHALE QID PRN PRN Reason: Shortness Of Breath Alprazolam (Alprazolam 0.5 Mg Tablet) 1 mg PO BEDTIME [facility] Last Admin: 02/04/21 21:51 Dose: 1 mg Documented by: Apixaban (Apixaban 5 Mg Tablet) 5 mg PO BID [facility] Last Admin: 02/05/21 09:06 Dose: 5 mg Documented by: Carvedilol (Carvedilol 6.25 Mg Tablet) 6.25 mg PO BID [facility]; Protocol Last Admin: 02/05/21 09:05 Dose: 6.25 mg Documented by: Digoxin (Digoxin 0.125 Mg Tablet) 0.125 mg PO DAILY [facility] Last Admin: 02/05/21 09:06 Dose: 0.125 mg Documented by: Docusate Sodium (Docusate Sodium 100 Mg Capsule) 100 mg PO DAILY PRN PRN Reason: Constipation Furosemide 200 mg/ Sodium (Chloride) 100 mls @ 2.5 mls/hr IVCONT .Q24H [facility] Last Admin: 02/04/21 11:00 Dose: 5 mg/hr, 2.5 mls/hr Documented by: Ondansetron HCl (Ondansetron Hcl 4 Mg/2 Ml Vial) 4 mg IVPUSH Q8H PRN PRN Reason: Nausea and Vomiting Pharmacy Consult (Consult Rx Perform Med Rec) 1 each MISCELLANE ONCE PRN PRN Reason: Consult order Potassium Chloride (Potassium Chloride Packet 20 Meq Packet) 40 meq PO BID [facility] Last Admin: 02/05/21 09:06 Dose: 40 meq Documented by: Sacubitril/Valsartan (Sacubitril/Valsartan 1 Tab Tablet) 1 tab PO BID [facility]; Protocol Last Admin: 02/04/21 22:59 Dose: 1 tab Documented by: Sodium Chloride (0.9 % Sodium Chloride Flush 3 Ml Syringe) 3 ml IVFLUSH QSHIFT [facility] Last Admin: 02/05/21 08:10 Dose: Not Given Documented by: Time Spent With Patient Time: Total time spent is greater than 50% in coordination of care (as documented) at patient's floor/unit and/or counseling patient: Time with patient: 15 - 24 minutes Progress Note: Quality Stroke Does the patient have a stroke diagnosis?: No Procedures Date of Service Date of Service: 02/05/21
--- NOTE | 2021-02-05 11:07 | HO.PM.IMPN ---
Subjective Subjective Date of Service: 02/05/21 Interval History: Feels much improved. Continues to diurese well. ..-7.5 L Review of Systems Denies chest pain Denies shortness of breath Denies nausea vomiting diarrhea pain in the feet Physical Exam Vital Signs: Vital Signs: Last Vital Signs Temp 97.2 F 02/05/21 08:52 Pulse 93 02/05/21 09:06 Resp 18 02/05/21 08:52 BP 95/70 02/05/21 09:05 Pulse Ox 97 02/05/21 08:52 BMI result Body Mass Index 33.0 Const: Other: No acute distress. Lying flat speaking full sentences Objective Data Active Medications Acetaminophen (Acetaminophen 325 Mg Tablet) 650 mg PO Q6H PRN PRN Reason: Pain, Mild (Pain Scale 1-3) Albuterol Sulfate (Albuterol Sulfate 90 Mcg 8 Gm Inhaler) 1 puff INHALE QID PRN PRN Reason: Shortness Of Breath Alprazolam (Alprazolam 0.5 Mg Tablet) 1 mg PO BEDTIME [facility] Last Admin: 02/04/21 21:51 Dose: 1 mg Documented by: DAVID Apixaban (Apixaban 5 Mg Tablet) 5 mg PO BID [facility] Last Admin: 02/05/21 09:06 Dose: 5 mg Documented by: CRISSY Carvedilol (Carvedilol 6.25 Mg Tablet) 6.25 mg PO BID [facility]; Protocol Last Admin: 02/05/21 09:05 Dose: 6.25 mg Documented by: CRISSY Digoxin (Digoxin 0.125 Mg Tablet) 0.125 mg PO DAILY [facility] Last Admin: 02/05/21 09:06 Dose: 0.125 mg Documented by: CRISSY Docusate Sodium (Docusate Sodium 100 Mg Capsule) 100 mg PO DAILY PRN PRN Reason: Constipation Furosemide 200 mg/ Sodium (Chloride) 100 mls @ 2.5 mls/hr IVCONT .Q24H [facility] Last Admin: 02/04/21 11:00 Dose: 5 mg/hr, 2.5 mls/hr Documented by: CRISSY Ondansetron HCl (Ondansetron Hcl 4 Mg/2 Ml Vial) 4 mg IVPUSH Q8H PRN PRN Reason: Nausea and Vomiting Pharmacy Consult (Consult Rx Perform Med Rec) 1 each MISCELLANE ONCE PRN PRN Reason: Consult order Potassium Chloride (Potassium Chloride Packet 20 Meq Packet) 40 meq PO BID [facility] Last Admin: 02/05/21 09:06 Dose: 40 meq Documented by: CRISSY Sacubitril/Valsartan (Sacubitril/Valsartan 1 Tab Tablet) 1 tab PO BID [facility]; Protocol Last Admin: 02/04/21 22:59 Dose: 1 tab Documented by: DAVID Sodium Chloride (0.9 % Sodium Chloride Flush 3 Ml Syringe) 3 ml IVFLUSH QSHIFT [facility] Last Admin: 02/05/21 08:10 Dose: Not Given Documented by: CRISSY Non-Admin Reason: Med Not Available Labs CBC & Chem 7: 02/05/21 06:10 02/05/21 06:10 Labs: Laboratory Results - last 24 hr 02/05/21 02/05/21 02/05/21 01:21 06:10 06:10 MCV MCH MCHC RDW Plt Count MPV Immature Gran % (Auto) Neut % (Auto) Lymph % (Auto) [place] % (Auto) Eos % (Auto) Baso % (Auto) Lymph # (Auto) [place] # (Auto) Eos # (Auto) Baso # (Auto) Abs Immat Gran (auto) Absolute Neuts (auto) Absolute Nucleated RBC Nucleated RBC % (auto) Anion Gap 11 L 12 Estim Creat Clear Calc 88.2 97.0 Estimated GFR > 60 > 60 Random Glucose 141 H Fasting Glucose 95 Calcium 8.1 L 8.3 L Magnesium 1.6 1.6 Total Bilirubin 1.3 H AST 29 ALT 22 Alkaline Phosphatase 144 H B-Natriuretic Peptide 2534 H Total Protein 5.9 L Albumin 3.1 L 02/05/21 06:10 MCV 87.1 MCH 27.8 MCHC 31.9 RDW 16.9 H Plt Count 218 MPV 9.7 Immature Gran % (Auto) 0.3 Neut % (Auto) 55.8 Lymph % (Auto) 28.1 [place] % (Auto) 13.7 H Eos % (Auto) 1.4 Baso % (Auto) 0.7 Lymph # (Auto) 1.7 [place] # (Auto) 0.8 Eos # (Auto) 0.1 Baso # (Auto) 0.0 Abs Immat Gran (auto) 0.02 Absolute Neuts (auto) 3.3 Absolute Nucleated RBC 0.000 Nucleated RBC % (auto) 0.0 Anion Gap Estim Creat Clear Calc Estimated GFR Random Glucose Fasting Glucose Calcium Magnesium Total Bilirubin AST ALT Alkaline Phosphatase B-Natriuretic Peptide Total Protein Albumin Microbiology Microbiology Results: Microbiology 02/02/21 17:59 Blood Culture - Preliminary Blood - Venous No growth after 48 hours. 02/02/21 17:59 Blood Culture - Preliminary Blood - Venous No growth after 48 hours. Assessment and Plan (1) Acute exacerbation of CHF (congestive heart failure): Status: Acute (2) Chronic atrial fibrillation: Status: Acute Assessment and Plan: This is a 60-year-old male with past medical history severe cardiomyopathy/ CHF with ejection fraction less than 10%, chronic Hypotension with baseline systolic around 90 here with decompensated heart failure with marked fluid overload 1.Acute on chronic Systolic CHF exacerbation -presently on IV Lasix drip, negative 8 L thus far Ejection fraction of less than 10% -to continue Entresto, Coreg if BP allows 2. Chronic AFib...rate controled Eliquis and carvedilol 3. Ventricular arrythmias d/t cardiomyopathy, low EF --Correct Mag keep up to 2, K above 4 3. Hypotension--Hold Lasix and Entresto DVT prophylaxis:? Eliquis Quality Stroke Does the patient have a stroke diagnosis?: No VTE Prior VTE?: No VTE Risk Level:: Medical - moderate - high VTE Device Contraindication: Treatment Not Indicated VTE Drug Contraindication: N/A - Med Ordered
--- NOTE | 2021-02-05 11:18 | PC.NURSE ---
Pt rechecked for vitals after morning medications and noted to have BP 74/41 supine. Pt offers no complaints at this time besdies B/L feet pain. MD Li made aware and asked for manual BP reading--- completed and noted be 80/46. MD questioned and asked for any further orders. MD arrived at bedside and repeat BP done to be 80/59 supine and pt continues to offer no complaints. Orders received to stop Lasix drip and hold on his scheduled Entresto. Pt during this entire event continues to ask if he can walk to the BR. repeatedly told pt that he cannot get up as his he is hypotensive and if he does he runs the risk of syncope and other risks. Pt refused to listen to both providers advise and proceeded to walk to the BR. Repeat vitals will be conducted. RN will continue to monitor.
--- NOTE | 2021-02-05 13:34 | MHC.CM.PN ---
pt is temporarily living at the [facility] in [place], [place] d/t being evicted from his apt. he lives c his director of trauma who he reports is there 13/09 and is through [employer]. the patient drives a car and it is in the [facility] parking lot so he will be transporting himself back to the [facility] [place]. pt does not use any home o2 and denies the need for vna at [place]. he does tell me that he uses a walker as needed but will be able to make it to his car at [place]. he says he has 2 children that live in the area and parents, but they are not able to help him. dc plan is for patient to return to the [facility] in [place] c his director of trauma. cm to cont. to follow.
--- NOTE | 2021-02-05 13:41 | MHC.CM.PN ---
pt is temporarily living at the [facility] in [place], [place] d/t being evicted from his apt. he lives c his database programmer who he reports is there 13/09 and is through [employer]. evidently he also has a case management social worker from [facility] that is working c him to find appropriate housing. the patient drives a car and it is in the [facility] parking lot so he will be transporting himself [place] the [facility] [place]. pt does not use any home o2 and denies the need for vna at [place]. he does tell me that he uses a walker as needed but will be able to make it to his car [place]. he says he has 2 children that live in the area and parents, but they are not able to help him. dc plan is for patient to return to the [facility] in [place] c his database programmer. cm to cont. to follow.
[2021-02-05] MEDS: Magnesium Sulfate/H2O 2 GM/50 ML PIGGYBACK IV ×2 (15:04→17:04)
[2021-02-05] MEDS: ALPRAZolam 0.5 MG TABLET 1 MG PO (21:39)
[2021-02-05] MEDS: Acetaminophen 325 MG TABLET 650 MG PO (21:39)
[2021-02-05] MEDS: Gabapentin 100 MG CAPSULE PO (21:41)
[2021-02-06] VITALS (13 sets, daily range): BP systolic 90–167; BP diastolic 55–88; PULSE 66–116; RESP 17–25; TEMP 36.4–36.6; O2SAT 92–99; BMI 32.2
[2021-02-06] MEDS: 0.9 % Sodium Chloride Flush 3 ML SYRINGE IVFLUSH ×3 (00:20→17:21)
[2021-02-06] MEDS: Morphine Sulfate 4 MG/ML CARTRIDGE IVPUSH (01:04)
--- NOTE | 2021-02-06 01:04 | PC.NURSE ---
2100; Patient admitted from ED to Room 461. Blood pressure 92/70, hr 96, rr 18, 99% on room air. Patient has scheduled bedtime coreg 6.25mg and entresto 24/26 mg; Dr. Krishnan made aware. Hold both medications due to decreased blood pressure per hospitalist. Patient also reporting 10/10 lower leg pain, describing as bees stinging , only has prn tylenol available, patient is asking for stronger medications. Hospitalist notified.
[2021-02-06 06:42] LABS: MANUAL DIFF FLAG NO
[2021-02-06 06:52] LABS: Basophils Absolute Auto 0.1 X10*3/uL (0.0-0.2); Basophils Percent Auto 1.1 % (0-2); Eosinophils Absolute Auto 0.1 X10*3/uL (0.0-0.4); Eosinophils Percent Auto 1.5 % (0-4); Hematocrit 50.1 % (42.0-52.0); Hemoglobin 15.9 g/dl (14.0-18.0); Imm Gran Abs Auto 0.02 X10*3/uL (0.00-0.03); Imm Gran Pct Auto 0.3 % (0.0-0.4); Lymphocytes Absolute Auto 2.4 X10*3/uL (1.2-4.9); Lymphocytes Percent Auto 31.7 % (20-40); Mean Corpuscular HGB Conc 31.7 g/dl (31.0-36.0); Mean Corpuscular Hemoglobin 28.4 pg (27.0-33.0); Mean Corpuscular Volume 89.5 fL (80.0-98.0); Mean Platelet Volume 10.3 fL (9.4-12.4); Monocytes Absolute Auto 0.9 X10*3/uL (0.1-1.2); Monocytes Percent Auto 12.3 % (2-11); Neutrophils Percent Auto 53.1 % (45-73); Platelet Count 244 X10*3/uL (160-400); Red Cell Distribution Width 17.4 % (11.0-16.0); White Blood Count 7.4 X10*3/uL (4.8-10.8)
[2021-02-06 07:14] LABS: Alanine Aminotransferase 27 U/L (0-40); Albumin Level 3.6 g/dL (3.5-5.0); Alkaline Phosphatase 160 U/L (39-117); Anion Gap 13 (12-20); Aspartate Amino Transferase 35 U/L (5-37); Bilirubin Total 1.9 mg/dL (0.0-1.0); Blood Urea Nitrogen 28 mg/dL (9-16); Calcium 8.8 mg/dL (8.4-10.2); Carbon Dioxide 28 mmol/L (22-29); Chloride 99 mmol/L (96-108); Creatinine Clr Calc Pharmacy 75.7; Estimated Glomerular Filt Rate 51; Glucose Fasting 96 mg/dL (60-99); Magnesium 1.9 mg/dL (1.6-2.6); Potassium 4.3 mmol/L (3.3-5.1); Sodium 136 mmol/L (135-145); Total Protein 7.1 g/dL (6.5-8.0)
[2021-02-06] MEDS: Sacubitril/Valsartan 24/26 1 TAB TABLET PO (09:47)
[2021-02-06] MEDS: Digoxin 0.125 MG TABLET PO ×2 (09:48→14:03)
[2021-02-06] MEDS: Apixaban 5 MG TABLET PO ×2 (09:48→22:41)
[2021-02-06] MEDS: Potassium Chloride Packet 20 MEQ PACKET 40 MEQ PO (09:49)
[2021-02-06] MEDS: Acetaminophen 325 MG TABLET 650 MG PO ×2 (09:49→22:40)
[2021-02-06] MEDS: carvediloL 6.25 MG TABLET PO (09:51)
--- NOTE | 2021-02-06 09:52 | HO.PM.IMPN ---
Subjective Subjective Date of Service: 02/06/21 Interval History: f/u CHF exacerbation, notes improve in lower extremity swelling, was off IV lasix for the most part yesterday d/t hypotension, BP is better today Review of Systems Denies chest pain Denies shortness of breath Denies nausea vomiting diarrhea pain in the feet Physical Exam Vital Signs: Vital Signs: Last Vital Signs Temp 97.8 F 02/06/21 07:42 Pulse 66 02/06/21 09:51 Resp 20 02/06/21 07:42 BP 107/55 L 02/06/21 09:51 Pulse Ox 94 02/06/21 07:42 BMI result Body Mass Index 33.0 Const: Other: General: AO X 3, no acute distress Resp: CTA bilateral CVS: iregular,, 3+ pedal edema GI: +BS, NT, no distention Skin: No rash Neuro: motor grossly intact Psych: appropriate affect Objective Data Active Medications Acetaminophen (Acetaminophen 325 Mg Tablet) 650 mg PO Q6H PRN PRN Reason: Pain, Mild (Pain Scale 1-3) Last Admin: 02/06/21 09:49 Dose: 650 mg Documented by: KATARZYNA Albuterol Sulfate (Albuterol Sulfate 90 Mcg 8 Gm Inhaler) 1 puff INHALE QID PRN PRN Reason: Shortness Of Breath Alprazolam (Alprazolam 0.5 Mg Tablet) 1 mg PO BEDTIME [facility] Last Admin: 02/05/21 21:39 Dose: 1 mg Documented by: JACINTA Apixaban (Apixaban 5 Mg Tablet) 5 mg PO BID [facility] Last Admin: 02/06/21 09:48 Dose: 5 mg Documented by: KATARZYNA Carvedilol (Carvedilol 6.25 Mg Tablet) 6.25 mg PO BID [facility]; Protocol Last Admin: 02/06/21 09:51 Dose: 6.25 mg Documented by: KATARZYNA Digoxin (Digoxin 0.125 Mg Tablet) 0.125 mg PO DAILY [facility] Last Admin: 02/06/21 09:48 Dose: 0.125 mg Documented by: KATARZYNA Docusate Sodium (Docusate Sodium 100 Mg Capsule) 100 mg PO DAILY PRN PRN Reason: Constipation Furosemide 200 mg/ Sodium (Chloride) 100 mls @ 2.5 mls/hr IVCONT .Q24H [facility] Last Admin: 02/05/21 11:14 Dose: Not Given Documented by: CRISSY Non-Admin Reason: See Note Ondansetron HCl (Ondansetron Hcl 4 Mg/2 Ml Vial) 4 mg IVPUSH Q8H PRN PRN Reason: Nausea and Vomiting Pharmacy Consult (Consult Rx Perform Med Rec) 1 each MISCELLANE ONCE PRN PRN Reason: Consult order Potassium Chloride (Potassium Chloride Packet 20 Meq Packet) 40 meq PO BID [facility] Last Admin: 02/06/21 09:49 Dose: 40 meq Documented by: KATARZYNA Sacubitril/Valsartan (Sacubitril/Valsartan 1 Tab Tablet) 1 tab PO BID [facility]; Protocol Last Admin: 02/06/21 09:47 Dose: 1 tab Documented by: KATARZYNA Sodium Chloride (0.9 % Sodium Chloride Flush 3 Ml Syringe) 3 ml IVFLUSH QSHIFT [facility] Last Admin: 02/06/21 09:49 Dose: 3 ml Documented by: KATARZYNA Labs CBC & Chem 7: 02/06/21 06:13 02/06/21 06:13 Labs: Laboratory Results - last 24 hr 02/06/21 02/06/21 06:13 06:13 MCV 89.5 MCH 28.4 MCHC 31.7 RDW 17.4 H Plt Count 244 MPV 10.3 Immature Gran % (Auto) 0.3 Neut % (Auto) 53.1 Lymph % (Auto) 31.7 [place] % (Auto) 12.3 H Eos % (Auto) 1.5 Baso % (Auto) 1.1 Lymph # (Auto) 2.4 [place] # (Auto) 0.9 Eos # (Auto) 0.1 Baso # (Auto) 0.1 Abs Immat Gran (auto) 0.02 Absolute Neuts (auto) 4.0 Absolute Nucleated RBC 0.000 Nucleated RBC % (auto) 0.0 Anion Gap 13 Estim Creat Clear Calc 75.7 Estimated GFR 51 Fasting Glucose 96 Calcium 8.8 D Magnesium 1.9 Total Bilirubin 1.9 H AST 35 ALT 27 Alkaline Phosphatase 160 H Total Protein 7.1 D Albumin 3.6 Assessment and Plan (1) Acute exacerbation of CHF (congestive heart failure): Status: Acute (2) Chronic atrial fibrillation: Status: Acute Assessment and Plan: 60-year-old male with past medical history severe cardiomyopathy/ CHF with ejection fraction less than 10%, chronic Hypotension with baseline systolic around 90 here with decompensated heart failure with marked fluid overload 1.Acute on chronic Systolic CHF exacerbation -presently on IV Lasix drip, negative 8 L thus far Ejection fraction of less than 10% -to continue Entresto, Coreg if BP allows 2. Chronic AFib...rate controled Eliquis and carvedilol 3. Ventricular arrythmias d/t cardiomyopathy, low EF --Correct Mag keep up to 2, K above 4 3. Hypotension--SBP > 100, baseline 90 DVT prophylaxis:? Eliquis Quality Stroke Does the patient have a stroke diagnosis?: No VTE Prior VTE?: No VTE Risk Level:: Medical - moderate - high VTE Device Contraindication: Treatment Not Indicated VTE Drug Contraindication: N/A - Med Ordered
[2021-02-06] MEDS: Magnesium Sulfate/H2O 2 GM/50 ML PIGGYBACK IV (10:49)
--- NOTE | 2021-02-06 10:50 | P.DS_ITS ---
DS: Providers Provider Date of Service: 02/06/21 Date of admission: 02/02/21 21:24 Primary care physician: Unknown Physician Consults: 02/02/21 21:33 Consult to Cardiology Routine Consulting Provider: Felice Paez Reason for consultation: CHF Has provider been notified: No DS: Diagnosis Discharge Diagnosis (1) Acute exacerbation of CHF (congestive heart failure): Status: Acute (2) Chronic atrial fibrillation: Status: Acute DS: Summary Hospital Course Hospital Course: Chief Complaint: SOB, leg swelling ?this is a 61-year-old male? with a past medical history of CHF with ejection fraction less than 10%, AFib on Eliquis, cardiomyopathy,? who presents to the hospital with complaints of leg swelling as well as shortness of breath for the past 1 month.? ? Patient reports compliance with his torsemide which is 80 mg b.i.d., at this time he is evicted from his home and lives in a motel with his [employer] but is very miserable and not happy, he reports orthopnea and PND.? He denies having any chest pain,? no cough,? no palpitations,no abdominal pain, nausea or vomiting, no diarrhea constipation, he has no urinary symptoms .? No weakness numbness or tingling, he has a sore on the base of his right foot that he reports was taking doxycycline, he reports that improved but it reoccurred about a month ago ?on arrival to the ED patient has a temp of 98, heart rate of 93, respiratory rate of 21, blood pressure of 86/60, satting 100% on room air,?labs are significant for WBC count of? 6.5, PT of 21, INR 1.9, BUN of 22, BNP of 2695, UA negative, COVID-19 influenza and RSV negative chest CT, pelvic and abdomen CT? showed no new pulmonary nodule mass or airspace consolidation, no pleural effusion, mild to moderate simple appearing ascites without organized fluid collection or abscess formation in the abdomen ?given his hypotension as well as treatment need for heart failure patient was evaluated by? control operator, patient was started on Lasix drip at 10 milligrams/hour, he apparently has a history of? hypotension, patient is at this time asymptomatic, patient will be admitted for further management. Hospial course: This patient with advanced heart failure with EF of 10 recurrent admission, chronic low BP with baseline systolic BP just around 90 presented with acute exacerbation of heart failure with marked leg edema, and dyspnea. He has been diuressed with IV lasix drip with negative 8 liters fluid balance but is now developping low BP, also has been having non-sustained Vtach and so we are keeping Mag around 2 and potassium above 4. He is still signficantly fluid overloaded and cardiology think he should be transfered to [facility] heart failure program for agresive management to include right heart cath (we are not able to do this here). Additional medical management include Coreg and Entresto when BP allows. Ultimately he will also need AICD AFIB--rate controlled on coreg and Eliquis for anticoagulation Time Spent with Patient Time attestation: Total time spent providing and/or coordinating discharge services: Discharge coordination time: Greater than 30 minutes Quality: Stroke Does the patient have a stroke diagnosis?: No Physical Exam Verdana 4l Vital Signs: Verdana 4d Verdana 4d Vital Signs: Verdana 4d Verdana 4Bd Last Vital Signs Verdana 4d Manager Bilingual New 4d Manager Bilingual New 4d Temp 97.8 F 02/06/21 07:42 Manager Bilingual New 4d Pulse 66 02/06/21 09:51 Manager Bilingual NewNew 4d Resp 20 02/06/21 07:42 BP 107/55 L 02/06/21 09:51 Pulse Ox 94 02/06/21 07:42 BMI result Body Mass Index 33.0 DS: Data Data Completed and Pending Labs on day of discharge: Laboratory Results - last 24 hr 02/06/21 02/06/21 06:13 06:13 WBC 7.4 RBC 5.60 Hgb 15.9 Hct 50.1 MCV 89.5 MCH 28.4 MCHC 31.7 RDW 17.4 H Plt Count 244 MPV 10.3 Immature Gran % (Auto) 0.3 Neut % (Auto) 53.1 Lymph % (Auto) 31.7 [place] % (Auto) 12.3 H Eos % (Auto) 1.5 Baso % (Auto) 1.1 Lymph # (Auto) 2.4 [place] # (Auto) 0.9 Eos # (Auto) 0.1 Baso # (Auto) 0.1 Abs Immat Gran (auto) 0.02 Absolute Neuts (auto) 4.0 Absolute Nucleated RBC 0.000 Nucleated RBC % (auto) 0.0 Sodium 136 Potassium 4.3 Chloride 99 Carbon Dioxide 28 Anion Gap 13 BUN 28 H Creatinine 1.41 H Estim Creat Clear Calc 75.7 Estimated GFR 51 Fasting Glucose 96 Calcium 8.8 D Magnesium 1.9 Total Bilirubin 1.9 H AST 35 ALT 27 Alkaline Phosphatase 160 H Total Protein 7.1 D Albumin 3.6 Preliminary micro results at discharge 02/02/21 17:59 Blood Culture - Preliminary Blood - Venous No growth after 48 hours. 02/02/21 17:59 Blood Culture - Preliminary Blood - Venous No growth after 48 hours. Discharge Plan Discharge Anticipated Discharge Date/Time: 02/06/21 10:52 Patient Disposition: Xfer Acute Care Hospital Discharge Diagnosis: Acute on chronic systolic heart failure Referrals: Physician,Unknown J [Primary Care Provider] - 1 Week Discharge Medications: Continued Eliquis 5 mg tablet 5 mg PO BID Qty: 60 RF: 4 alprazolam [Xanax] 1 mg tablet 1 mg PO BEDTIME 30 Days Qty: 30 RF: 2 albuterol sulfate [ProAir HFA] 90 mcg/actuation HFA aerosol inhaler 1 inh inhalation QID PRN (Reason: Shortness Of Breath) RF: 0 torsemide 20 mg tablet 80 mg PO BID RF: 0 carvedilol 6.25 mg tablet 6.25 mg PO BID RF: 0 sacubitril-valsartan 24-26 mg tablet 1 tab PO BID Qty: 90 RF: 3 digoxin 125 mcg (0.125 mg) tablet 125 mcg PO DAILY Qty: 90 RF: 3 Diet: advance to usual diet and low salt diet Activity on Discharge: As tolerated Stand Alone Forms: Patient Portal Discharge page Care Plan Goals: Management of heart failure Health Concerns: Severe cardiomyopathy and advanced heart failure Plan of Treatment: Medical management with diuretics and hormonal therapy and transfered to [facility] for right heart cath and more agresive management. Assessment: as above
--- NOTE | 2021-02-06 11:17 | MHC.CM.PN ---
Per ROUNDS discussion, goal is for Patient to transfer to [facility] for Cardiac Cath. CM will follow.
--- NOTE | 2021-02-06 11:20 | P.PNCA_ITS ---
Subjective Subjective Date of Service: 02/06/21 <GERDA Campa - Last Filed: 02/06/21 11:53> 02/06/21 <Felice Paez MD - Last Filed: 02/06/21 12:49> Principal diagnosis: Congestive heart failure <GERDA Campa - Last Filed: 02/06/21 11:53> Interval history: Cardiology follow up for CHF, nonischemic CMP. Seen at 0820. Today he reports not feeling well with back pains, lower abdominal pains and feet pains. His breathing is comfortable at rest and short with activity. No chest discomfort. Did feel heart palpitations this am, no dizziness. Tele did show a 17 beat NSVT early this am. Did not sleep well. Spent most of night in recliner due to back pain. <GERDA Campa - Last Filed: 02/06/21 11:53> Review of Systems Review of Systems as above <GERDA Campa - Last Filed: 02/06/21 11:53> Yes all other systems are reviewed and are negative <GERDA Campa - Last Filed: 02/06/21 11:53> Physical Exam Vital Signs: Last Vital Signs Temp 97.8 F 02/06/21 07:42 Pulse 111 H 02/06/21 11:12 Resp 20 02/06/21 07:42 BP 104/88 02/06/21 11:12 Pulse Ox 94 02/06/21 07:42 BMI result Body Mass Index 33.0 <GERDA Campa - Last Filed: 02/06/21 11:53> Const General: cooperative, no acute distress, alert and awake <GERDA Campa - Last Filed: 02/06/21 11:53> Orientation/consciousness: patient oriented x3 <GERDA Campa - Last Filed: 02/06/21 11:53> Neck Neck: Yes JVD <GERDA Campa - Last Filed: 02/06/21 11:53> Resp Effort & Inspection: normal respiratory effort and able to speak in complete sentences <GERDA Campa - Last Filed: 02/06/21 11:53> Auscultation: clear to auscultation bilaterally, no rales, no rhonchi and no wheezes <Molly HillVANI - Last Filed: 02/06/21 11:53> Cardio Rate: regular rate <Molly SergioDELROY - Last Filed: 02/06/21 11:53> Rhythm: abnormal rhythm irregularly irregular <[facility] SergioDELROY - Last Filed: 02/06/21 11:53> Heart sounds: S1 normal heart sound present and S2 normal heart sound present <[facility] SergioDELROY - Last Filed: 02/06/21 11:53> GI Other: rounded, soft, tenderness to lower abdomen which he relates to a hernia that he has <Molly DELROY Hill - Last Filed: 02/06/21 11:53> Skin General skin exam: no rashes or lesions noted <[facility] DELROY Hill - Last Filed: 02/06/21 11:53> Neuro General: patient oriented x3 <Molly DELROY Hill - Last Filed: 02/06/21 11:53> Extrem Other: Gross pitting edema to posterior thighs, above knee. pillow top feet <Molly M DELROY Hill - Last Filed: 02/06/21 11:53> Objective Labs and Meds Result diagrams: : 02/06/21 06:13 02/06/21 06:13 <Molly DELROY Hill - Last Filed: 02/06/21 11:53> Lab results: Laboratory Results - last 24 hr 02/06/21 02/06/21 06:13 06:13 WBC 7.4 RBC 5.60 Hgb 15.9 Hct 50.1 MCV 89.5 MCH 28.4 MCHC 31.7 RDW 17.4 H Plt Count 244 MPV 10.3 Immature Gran % (Auto) 0.3 Neut % (Auto) 53.1 Lymph % (Auto) 31.7 Bandera % (Auto) 12.3 H Eos % (Auto) 1.5 Baso % (Auto) 1.1 Lymph # (Auto) 2.4 Bandera # (Auto) 0.9 Eos # (Auto) 0.1 Baso # (Auto) 0.1 Abs Immat Gran (auto) 0.02 Absolute Neuts (auto) 4.0 Absolute Nucleated RBC 0.000 Nucleated RBC % (auto) 0.0 Sodium 136 Potassium 4.3 Chloride 99 Carbon Dioxide 28 Anion Gap 13 BUN 28 H Creatinine 1.41 H Estim Creat Clear Calc 75.7 Estimated GFR 51 Fasting Glucose 96 Calcium 8.8 D Magnesium 1.9 Total Bilirubin 1.9 H AST 35 ALT 27 Alkaline Phosphatase 160 H Total Protein 7.1 D Albumin 3.6 <VANI CampaC - Last Filed: 02/06/21 11:53> Progress Note: A&P Assessment and plan (1) Acute exacerbation of CHF (congestive heart failure): Status: Acute <GERDA Campa - Last Filed: 02/06/21 11:53> Assessment and Plan: Hx of severe nonischemic CMP with prior EF < 10% 03/28/20. Admit on 02/02 with increasing sob, edema, orthopnea. BNP 2695. CT chest/ abdomen showed no pleural effusions, mild to moderate ascites, diffuse anasarca. Bedside echo done by chemical mixer this admit showed EF 20%. He was diuresed using Lasix drip for total negative balance 8 liters. Diureses and titration of neurohormonal modulation has been complicated by hypotension with SBP in to the 70s. At present Lasix drip is off, however he remains significant fluid overloaded. Doses of his Entresto and Carvedilol are being held by nursing due to low BPs. He would benefit from advanced heart failure management that can be provided by [place] [facility] Will call Dr Yoan Drake and work on arranging [facility] [place]. Pt agreeable to plan. <Molly Hill, DELROY-C - Last Filed: 02/06/21 11:53> Hx of severe nonischemic CMP with prior EF < 10% 03/28/20. Admit on 02/02 with increasing sob, edema, orthopnea. BNP 2695. CT chest/ abdomen showed no pleural effusions, mild to moderate ascites, diffuse anasarca. Bedside echo done by chemical mixer this admit showed EF 20%. He was diuresed using Lasix drip for total negative balance 8 liters. Diureses and titration of neurohormonal modulation has been complicated by hypotension with SBP in to the 70s. At present Lasix drip is off, however he remains significant fluid overloaded. Doses of his Entresto and Carvedilol are being held by nursing due to low BPs. He would benefit from advanced heart failure management that can be provided by HF team at [facility]. Will call Dr Yoan Drake and work on arranging [facility] [place]. Pt agreeable to plan. Patient seen and examined. Remained short of breath. Also fluid overloaded. Blood pressure is on the lower side. Advanced heart failure difficult to manage. Having runs of nonsustained VT. Plan was to transfer to [facility], however advanced heart failure team said they and no beds at [facility] to except him. Recommend to transfer him to the ICU setting for dobutamine infusion for inotropics support. Given his atrial fibrillation as well as his nonsustained VT will also start him on amiodarone 400 mg b.i.d. press is ventricular arrhythmias. As per recommendations also increase his DH to 0.25 mg daily. Discontinue Coreg and Entresto for now. Will start him on dobutamine 2.5 micrograms/kg per minute and uptitrate based on his response. Overall prognosis is guarded. <Felice Paez MD - Last Filed: 02/06/21 12:49> (2) Nonsustained ventricular tachycardia: Status: Acute <GERDA Campa - Last Filed: 02/06/21 11:53> Assessment and Plan: Tele monitoring shows short runs of NSVT. This am there was a 17 beat run NSVT. Pt does report feeling heart palpitations around that time. No dizziness reported. Has known CMP. We are working on Life Vest application for when he is discharged to home. Keep Mg at 2, K at 4. Mg 1.9 this am, recieved supplement. K 4.3. Ongoing tele monitoring. <GERDA Campa - Last Filed: 02/06/21 11:53> (3) NICM (nonischemic cardiomyopathy): Status: Acute <GERDA Campa - Last Filed: 02/06/21 11:53> Assessment and Plan: Severe nonischemic CMP. Cardiac cath 03/30/19 showed normal coronary a rteries. Unable to optimize medical management, due to hypotension. <Molly Cris Sergio, DELROY-C - Last Filed: 02/06/21 11:53> (4) Abdominal ascites: Status: Acute <Molly Lynch DELROY Hill-C - Last Filed: 02/06/21 11:53> Assessment and Plan: Pt reports abdomen is down from the time of his admission, however remains with distention. <Molly Hill NP-C - Last Filed: 02/06/21 11:53> (5) Anasarca: Status: Acute <Molly Hill NP-C - Last Filed: 02/06/21 11:53> Assessment and Plan: Gross LE edema <Molly Hill NP-C - Last Filed: 02/06/21 11:53> (6) Chronic atrial fibrillation: Status: Acute <Molly Hill, DELROY-C - Last Filed: 02/06/21 11:53> Assessment and Plan: Hx chronic afib. He has failed rhythm control in the past. On Carvedilol and Digoxin for rate control. On Eliquis for anticoagulation. Tele shows afib, rates low 100s this am. <Molly Hill NP-C - Last Filed: 02/06/21 11:53> Fall Risk Details Current Medications: Current Medications Acetaminophen (Acetaminophen 325 Mg Tablet) 650 mg PO Q6H PRN PRN Reason: Pain, Mild (Pain Scale 1-3) Last Admin: 02/06/21 09:49 Dose: 650 mg Documented by: Albuterol Sulfate (Albuterol Sulfate 90 Mcg 8 Gm Inhaler) 1 puff INHALE QID PRN PRN Reason: Shortness Of Breath Alprazolam (Alprazolam 0.5 Mg Tablet) 1 mg PO BEDTIME [facility] Last Admin: 02/05/21 21:39 Dose: 1 mg Documented by: Apixaban (Apixaban 5 Mg Tablet) 5 mg PO BID [facility] Last Admin: 02/06/21 09:48 Dose: 5 mg Documented by: Carvedilol (Carvedilol 6.25 Mg Tablet) 6.25 mg PO BID [facility]; Protocol Last Admin: 02/06/21 09:51 Dose: 6.25 mg Documented by: Digoxin (Digoxin 0.125 Mg Tablet) 0.125 mg PO DAILY [facility] Last Admin: 02/06/21 09:48 Dose: 0.125 mg Documented by: Docusate Sodium (Docusate Sodium 100 Mg Capsule) 100 mg PO DAILY PRN PRN Reason: Constipation Furosemide 200 mg/ Sodium (Chloride) 100 mls @ 2.5 mls/hr IVCONT .Q24H [facility] Last Admin: 02/05/21 11:14 Dose: Not Given Documented by: Magnesium Sulfate (Magnesium Sulfate/H2o) 2 gm in 50 mls @ 25 mls/hr IV ONCE ONE Stop: 02/06/21 11:56 Last Admin: 02/06/21 10:49 Dose: 25 mls/hr Documented by: Ondansetron HCl (Ondansetron Hcl 4 Mg/2 Ml Vial) 4 mg IVPUSH Q8H PRN PRN Reason: Nausea and Vomiting Pharmacy Consult (Consult Rx Perform Med Rec) 1 each MISCELLANE ONCE PRN PRN Reason: Consult order Potassium Chloride (Potassium Chloride Packet 20 Meq Packet) 40 meq PO BID [facility] Last Admin: 02/06/21 09:49 Dose: 40 meq Documented by: Sacubitril/Valsartan (Sacubitril/Valsartan 1 Tab Tablet) 1 tab PO BID [facility]; Protocol Last Admin: 02/06/21 09:47 Dose: 1 tab Documented by: Sodium Chloride (0.9 % Sodium Chloride Flush 3 Ml Syringe) 3 ml IVFLUSH QSHIFT [facility] Last Admin: 02/06/21 09:49 Dose: 3 ml Documented by: <GERDA Campa - Last Filed: 02/06/21 11:53> Time Spent With Patient Time: Total time spent is greater than 50% in coordination of care (as documented) at patient's floor/unit and/or counseling patient: 30 <GERDA Campa - Last Filed: 02/06/21 11:53> Time with patient: 25 - 35 minutes <GERDA Campa - Last Filed: 02/06/21 11:53> Progress Note: Quality Stroke Does the patient have a stroke diagnosis?: No <GERDA Campa - Last Filed: 02/06/21 11:53> Procedures Date of Service Date of Service: 02/06/21 <GERDA Campa - Last Filed: 02/06/21 11:53>
[2021-02-06] MEDS: Furosemide 200 MG in 0.9 % Sodium Chloride 80 ML IVCONT (11:51)
[2021-02-06] MEDS: Amiodarone HCL 200 MG TABLET 400 MG PO ×2 (14:03→22:41)
--- NOTE | 2021-02-06 16:28 | W.PM.CCCN ---
History of Present Illness Data of Consult Service Date: 02/06/21 Requesting physician: Felice Paez Primary Care Provider: HANS Giang Reason for consult: Weakness/persistent ascites and peripheral edema 61-year-old male in persistent and controlled atrial fibrillation EKG demonstrating nonspecific IVCD with diffuse nonspecific ST-T changes and poor R-wave progression across the precordium all consistent with his underlying cardiomyopathy echo confirming dilated severely diffusely hypokinetic left ventricle with 10% ejection fraction consistent with very advanced end-stage congestive cardiomyopathy biventricular failure and and came in with marked fluid overload and congested had IV Lasix with an 8 L diuresis to the point where BUN and creatinine were beginning to increase creatinine louisa from a baseline of about 1-1.4 BUN was up to 28 and still had manifestations of right heart failure 3rd space fluid with ascites and peripheral edema and came in for a dobutamine drip which we were going to empirically do a 2.5 micrograms/kilogram per minute watching his heart rate carefully Clearly weak looking but very difficult personality asking people to leave clearly was not interested being treated any further it did not chris well for his ability to comply ultimately he did leave AMA but by exam he had very poor bilateral carotid upstrokes still had persistent neck vein distension even in the upright position lungs were clear both by adeno CT scan and no adventitious sounds abdomen was benign there was no palpable fluid wave no organomegaly but significant peripheral edema No livedo no acrocyanosis No fever he did not appear to be infected Review of Systems Review of Systems: Yes all other systems are reviewed and are negative [facility] Past Medical History Medical History (Updated 02/07/21 @ 07:01 by Purnima Toney MD) Atrial fibrillation and flutter Biventricular CHF (congestive heart failure) Cardiomyopathy Derangement of left shoulder joint Derangement of right shoulder joint Failed back syndrome, cervical Failed back syndrome, lumbar History of cardioversion Left rib fracture Lumbar spondylosis Lumbar spondylosis Persistent atrial fibrillation Family History Family History Father No problems noted. Mother No problems noted. Daughter Breast cancer Surgical History Surgical History H/O elbow surgery H/O knee surgery History of arteriography History of shoulder surgery History of spinal surgery Social History Social History Household Members: Friend(s) Household Members Other:: friend lives with pt and is the logging engineer Housing: Homeless Housing Other:: currently living in a motel Do you presently have visiting nurse or other home services: No Alcohol intake: never Patient Tobacco Use Status: Former Tobacco user Quit Date: 07/16/20 Cigarettes Per Day: 10 Second Hand Smoke Exposure: No service: No Current occupational status: unemployed Meds Allergies Allergy/AdvReac Type Severity Reaction Status Date / Time duloxetine [From Cymbalta] AdvReac Intermediate GI upsets Verified 02/02/21 17:38 zolpidem [Ambien] AdvReac Intermediate sleep Verified 02/02/21 17:38 walking Active Medications: Current Medications Acetaminophen (Acetaminophen 325 Mg Tablet) 650 mg PO Q6H PRN PRN Reason: Pain, Mild (Pain Scale 1-3) Last Admin: 02/06/21 09:49 Dose: 650 mg Documented by: Albuterol Sulfate (Albuterol Sulfate 90 Mcg 8 Gm Inhaler) 1 puff INHALE QID PRN PRN Reason: Shortness Of Breath Alprazolam (Alprazolam 0.5 Mg Tablet) 1 mg PO BEDTIME [facility] Last Admin: 02/05/21 21:39 Dose: 1 mg Documented by: Amiodarone HCl (Amiodarone Hcl 200 Mg Tablet) 400 mg PO BID [facility] Last Admin: 02/06/21 14:03 Dose: 400 mg Documented by: Apixaban (Apixaban 5 Mg Tablet) 5 mg PO BID [facility] Last Admin: 02/06/21 09:48 Dose: 5 mg Documented by: Digoxin (Digoxin 0.25 Mg Tablet) 0.25 mg PO DAILY [facility] Docusate Sodium (Docusate Sodium 100 Mg Capsule) 100 mg PO DAILY PRN PRN Reason: Constipation Furosemide 200 mg/ Sodium (Chloride) 100 mls @ 2.5 mls/hr IVCONT .Q24H [facility] Last Admin: 02/06/21 11:51 Dose: 5 mg/hr, 2.5 mls/hr Documented by: Ondansetron HCl (Ondansetron Hcl 4 Mg/2 Ml Vial) 4 mg IVPUSH Q8H PRN PRN Reason: Nausea and Vomiting Pharmacy Consult (Consult Rx Perform Med Rec) 1 each MISCELLANE ONCE PRN PRN Reason: Consult order Potassium Chloride (Potassium Chloride Packet 20 Meq Packet) 40 meq PO BID [facility] Last Admin: 02/06/21 09:49 Dose: 40 meq Documented by: Sodium Chloride (0.9 % Sodium Chloride Flush 3 Ml Syringe) 3 ml IVFLUSH QSHIFT [facility] Last Admin: 02/06/21 09:49 Dose: 3 ml Documented by: Home Medications Medication Instructions Recorded Confirmed Last Taken Type torsemide 20 mg tablet 80 mg PO BID 06/23/20 02/02/21 02/02/21 History carvedilol 6.25 mg tablet 6.25 mg PO BID 07/23/20 02/02/21 02/02/21 History albuterol sulfate 90 mcg/actuation 1 inh INHALATION QID PRN 02/02/21 02/02/21 Unknown History aerosol inhaler (ProAir HFA) Physical Exam Vital Signs: Vital Signs: Last Vital Signs Temp 97.8 F 02/06/21 15:40 Pulse 88 02/06/21 15:37 Resp 17 02/06/21 15:37 BP 105/69 02/06/21 15:37 Pulse Ox 95 02/06/21 15:37 BMI result Body Mass Index 33.0 Again afebrile blood pressure in the 90 systolic range with persistent but controlled atrial fibrillation average heart rate of about 90 Nonfocal neurologically Abdomen benign Significant peripheral edema Lungs clear no adventitious sounds Cardiac exam with poor bilateral carotid upstrokes commensurate with poor stroke work reserve but positive neck vein distension Results Labs CBC & Chem 7: 02/06/21 06:13 02/06/21 06:13 Labs: Short CBC 02/06/21 Range/Units 06:13 WBC 7.4 (4.8-10.8) X10*3/uL Hgb 15.9 (14.0-18.0) g/dl Hct 50.1 (42.0-52.0) % Plt Count 244 (160-400) X10*3/uL BMP 02/06/21 06:13 Sodium 136 Potassium 4.3 Chloride 99 Carbon Dioxide 28 BUN 28 H Creatinine 1.41 H Calcium 8.8 D Liver Function 02/06/21 Range/Units 06:13 Total Bilirubin 1.9 H (0.0-1.0) mg/dL AST 35 (5-37) U/L ALT 27 (0-40) U/L Alkaline Phosphatase 160 H (39-117) U/L Albumin 3.6 (3.5-5.0) g/dL Microbiology Microbiology Results: Microbiology 02/02/21 17:59 Blood - Venous Blood Culture - Preliminary No growth after 48 hours. 02/02/21 17:59 Blood - Venous Blood Culture - Preliminary No growth after 48 hours. Assessment and Plan (1) Nonsustained ventricular tachycardia: Status: Acute (2) Foot ulcer: Status: Acute (3) Biventricular CHF (congestive heart failure): Status: Acute (4) Acute exacerbation of CHF (congestive heart failure): Status: Acute (5) Anasarca: Status: Acute (6) Abdominal ascites: Status: Acute (7) RLS (restless legs syndrome): Status: Acute (8) Chronic atrial fibrillation: Status: Acute (9) Neuropathy: Status: Acute (10) NICM (nonischemic cardiomyopathy): Status: Acute (11) SOB (shortness of breath): Status: Acute (12) Acute on chronic systolic (congestive) heart failure: Status: Acute (13) Acute kidney insufficiency: Status: Acute The plan as discussed with Cardiology was to discontinue the Lasix drip in the face of rising BUN and creatinine and try to without and increasing heart rate start low-dose dobutamine to eliminate some of the 3rd spaced fluid reservoir and possibly restore normal kidney function number baseline and hopefully in a give him at least adeno persistent be benefit in the face of an ejection fraction of 10% to enable discharge And ultimately he had no desire to comply and signed out against medical advice
[2021-02-06] MEDS: HYDROmorphone HCl 1 MG/ML SYRINGE IVPUSH (16:51)
[2021-02-06] MEDS: ALPRAZolam 0.5 MG TABLET 1 MG PO (22:40)
[2021-02-06] MEDS: diphenhydrAMINE HCL 25 MG TABLET PO (22:41)
[2021-02-07] VITALS: BP 102/82; PULSE 101; RESP 12; O2SAT 92
[2021-02-07 00:37] LABS: Glucose, Whole Blood 108 mg/dL (60-115)
--- NOTE | 2021-02-07 02:00 | P.EN_ITS ---
Event Note Date of Service: 02/07/21 Event Note: The patient started to be verbally abusive demanding food and drinks of his choice to nursing personnel, several of us explain to him that we were not able to get what he wanted within his particular menu desire including past, hamburgers, tomatoes among others, nursing personnel did offer him turkey sandwich and other things and the patient continued to refuse and despite of our deescalation efforts, the patient continued to be verbally abusive and finally stated that he will leave against medical advice unless we gave him what he demanded. I spoke to the patient, asked him several questions about his current behavior, he simply said ?do not do understand I am hungry and when I am angry I am a prick ; I explained to the patient the risks of leaving against medical advice given his current clinical scenario and weak heart, he stated that it is not the 1st time he has left the hospital and indeed this is noted on the patient's record to have happened in February of this year. The patient appears mentally competent to make decisions, he understands that he is taking a risk, he understands that he could have a cardiac arrest and , but he does not seem to care. Several nurses including the patient's nursing animal hospital office supervisor Diana spoke to him and fried to offer him food that we have available making some kind of a compromised until the morning but the patient refused, he stated that he has to leave and that he already has call somebody to pick him up. Despite of our efforts the patient left against medical advice at 2 in the morning. I will inform Dr. Toney in the morning.
--- NOTE | 2021-02-07 03:28 | PC.NURSE ---
Assumed care of patient from ADITYA Aldridge, at 16:00. Patient initially drowsy and lethargic, gradually became more alert, oriented x4 whole shift. Patient on room air, breathing easily. A-fib on monitor, rate in 90's. BP somewhat soft, but MAP>65. Patient on dobutamine gtt. Heart sounds distant. Lung sounds clear with slightly dim bases to auscultation, breathing easy on room air. Patient with large round distended obese abdomen and some umbilical tenderness, mild pain. Patient with hypoactive bowel sounds. Patient with very hearty appetite, eager for dinner immediately upon arrival, ate 100% dinner, then had second helping of vegetables for about 25% more food. Patient also had subsequent snacks x2 ice creams. Fluid restriction ordered by , and discussed and reviewed with patient. Patient verbalized he would be having difficulty with that, but actually only had 1 L PO fluid. Patient was very demanding about wanting more food. He asked for a tuna sandwich, initially, but per PA, patient was to be educated about his dietary restrictions and not fed more tonight. Patient was educated by both RN, and PA. Patient became upset and was demanding to be allowed to have food brought in by his [id number], as he described it--pasta with sauce. Patient was educated that this would not be allowed, but that he would be permitted to have an alternative, and was presented with a tuna sandwich, which he refused. He insisted he wanted to leave against medical advice, and PA and nursing machining and assembly supervisor in to help explain the repercussions and risks of leaving against medical advice. Patient insisted on leaving. He was permitted to leave once a ride was ensured. He was escorted to the door of the van that his ride was in by this RN and security.
== END 2021-02-07 02:00 | disposition left against medical advice (07) | DRG 292 ==
LOC: HO.ED 18:29 → HO.EDOVER 21:37 → HO.IMC 02-05 18:15 → HO.ICU 02-06 15:05
PROVIDERS: Hospitalist; Physician Assistant Medical; Admitting Provider Internal Medicine; Emergency Provider Emergency Medicine; PCP Physician Assistant; Visit Provider Internal Medicine
DX: I50.23 Acute on chronic systolic (congestive) heart failure (principal); I42.8 Other cardiomyopathies; I48.20 Chronic atrial fibrillation, unspecified; I47.2 Ventricular tachycardia; R18.8 Other ascites; L97.419 Non-pressure chronic ulcer of right heel and midfoot with unspecified severity; I87.2 Venous insufficiency (chronic) (peripheral); I95.9 Hypotension, unspecified; G25.81 Restless legs syndrome; G62.9 Polyneuropathy, unspecified; Z20.822 Contact with and (suspected) exposure to COVID-19; Z87.891 Personal history of nicotine dependence; Z79.01 Long term (current) use of anticoagulants; Z79.899 Other long term (current) drug therapy
CPT/HCPCS: 0241U; 36415; 71250; 74176; 80048; 80053; 81003; 82947; 83605; 83735; 83880; 84484; 85025; 85610; 85652; 86140; 87040; 93005; 96365; 96366; 99285; J1170; J1200; J1250; J1940; J2270; J3475; Q0163